=== PATIENT | male | born 1950 | race Caucasian/White ===

== ENCOUNTER → 2016-06-22 | Outpatient (CLI) | payer OTHER ==
[~2016-06-22] MED LIST: ACET-1175 PO; ATOR-22 PO; BISA10SU38 PR; CARB25TA14 PO; DIGO0.2576 PO; DIVA250T4 PO; DIVA500T5 PO; HYDR-5688 PO; LNX125 PO; LRT5 PO; MAGNSUS5 PO; MELA1TAB3 PO; MELA1TAB4 PO; METO50TA16 PO; MULT-506 PO; PRLSR20 PO; RISP0.253 PO; RISP0.258 PO; SENN-65 PO; SODIENE PR; TRIA0.02 TOP
== END ==
LOC: C.LABUPUNI 10:39
PROVIDERS: ATTEND Family Medicine
DX: I11.0 Hypertensive heart disease with heart failure (principal); F31.9 Bipolar disorder, unspecified

== ENCOUNTER 2016-07-20 22:19 | Observation (INO) | payer OTHER ==
[~2016-07-20] VITALS: Ht 172.7 cm; Wt 74.9 kg
[~2016-07-20 22:19] MED LIST changes: -HYDR-5688 PO; -LNX125 PO; -MELA1TAB4 PO; -RISP0.258 PO
[2016-07-20] MEDS ORDERED: LNX125 PO (23:09)
[2016-07-20] MEDS ORDERED: GLUCAGON FOR INJ 1 MG VIAL IV STA (23:09)
[2016-07-20] MEDS ORDERED: MELA1TAB4 PO (23:14)
[2016-07-20] MEDS ORDERED: RISP0.258 PO ×2 (23:18)
--- NOTE | 2016-07-20 23:19 | EMERGENCY ROOM VISIT NOTE ---
History Report prepared by Rocio: Suzan Costello Under the Supervision of: Dr. Omar Escobar M.D. First contact with patient: 23:03 Chief Complaint: FOOD BOLUS Stated Complaint: FOOD BOLUS/ FR [facility] Nursing Triage Summary: Pt arrived via BLS EMS form [facility]. Per EMS, staff told EMS that the pt began spitting and vomiting several hours ago. Hx of food bolus and staff concerned. In ambulance pt reported to staff that he has not eaten or drank anything in "days". Pt told EMS that he has never had this happen before. Upon arrival pt spitting and vomiting thick mucus into emesis bag. Hx of parkinsons with hand and arm tremors. History of Present Illness The patient is a 66 year old male who presents to the Emergency Room with complaints of a persistent food bolus that began a few hours ago. Per nursing staff, the patient is from [facility] and began spitting up mucous and vomiting continuously. The patient notes some slight abdominal pain, and states that he cannot swallow at all. Nursing staff reports that the patient has a history of food boluses and has had 8 endoscopies in the past. The patient notes that he hasn't eaten or drank anything in days, and he denies this ever happening in the past. Records indicate that the the patient has a history of Parkinson's disease, dementia, and esophageal dysmotility. Records report that the patient has had multiple food boluses throughout 2011. The history is limited secondary to the patient being nonverbal and history of dementia. Source of History: patient, nursing staff History Limited By: dementia Onset: a few hours ago Position: other (global) Quality: other (food bolus) Timing: other (persistent) Associated Symptoms: + abdominal pain Note: Associated Symptoms: cannot swallow Review of Systems Unable to obtain secondary to the patient being nonverbal and history of dementia. Past Medical & Surgical Medical Problems: (1) Alcohol Liver Damage Nos (2) Atrial Fibrillation (3) Chronic Kidney Disease, Unspecified (4) Dementia, Unspecified, Without Behavioral Disturbance (5) Diab Jennifer Wo Compl, Type Ii Or Unspec Type, Not Uncntrld (6) Foreign Body Esophagus (7) Hyperlipidemia Nec/Nos (8) Hypertension Nos Family History No pertinent family history stated. Social History Smoking Status: Former Smoker Marital Status: single Housing Status: other Occupation Status: disabled Current/Historical Medications Scheduled Atorvastatin (Lipitor), 20 MG PO DAILY Carbidopa/Levodopa (Sinemet 25MG/250MG), 1 TAB PO Q4 Digoxin (Digoxin), 0.125 MG PO DAILY Divalproex Sodium (Depakote Delay Rel), 500 MG PO BID Metoprolol Tartrate (Lopressor) (Lopressor), 50 MG PO DAILY Multivitamin (Multivitamin), 1 TAB PO DAILY Risperidone (Risperdal), 0.25 MG PO QAM Risperidone (Risperdal), 0.75 MG PO HS Sennosides-Docusate Sodium (Senokot S), 1 TAB PO BID Scheduled PRN Acetaminophen (Tylenol), 650 MG PO Q8 PRN for Pain Acetaminophen (Tylenol), 650 MG PO Q8 PRN for TEMP >101 Hydrocodone/Acetaminophen 5MG/325MG ([place] 5MG/325MG), 1 TAB PO QID PRN for Pain Melatonin (Melatonin), 1 MG PO HS PRN for Insomnia Allergies Coded Allergies: Naproxen (Unverified Allergy, Mild, 07/20/16) Uncoded Allergies: NONSTEROIDAL (Allergy, Mild, 07/23/09) Physical Exam Vital Signs Date Time Temp Pulse Resp B/P Pulse Ox O2 Delivery O2 Flow Rate FiO2 07/21/16 01:00 79 18 150/61 96 Room Air 07/21/16 00:44 87 07/21/16 00:23 86 20 150/61 95 Room Air 07/20/16 22:20 100 Room Air 07/20/16 22:20 37.2 93 20 152/94 100 Room Air Physical Exam GENERAL: Patient is chronically unwell appearing, mild distress, dementia/ Parkinson's noted. HEENT: Continuous spitting/retching of clear liquid. No acute trauma, normocephalic atraumatic, mucous membranes moist, no nasal congestion, no scleral icterus. NECK: No stridor, no adenopathy, no meningismus, trachea is midline. LUNGS: Crackles and decreased breath sounds in the left lower lobe. HEART: Regular rate and rhythm. No murmurs, rubs, gallops appreciated. ABDOMEN: Soft, nontender, bowel sounds positive, no masses appreciated, no peritonitis. BACK: No midline tenderness, no CVA tenderness EXTREMITIES: Mild edema bilateral lower legs. Normal motion all extremities, no cyanosis. NEUROLOGIC: Awake, answers yes and no periodically with a head nod. SKIN: No rash, no jaundice, no diaphoresis. Medical Decision & Procedures ER Provider Diagnostic Interpretation: 1 view chest: chronic lung disease, no focal infiltrate or effusion. KUB: nonspecific bowel gas pattern, stool in rectum. No clear evidence of bowel dilatation. Laboratory Results 07/20/16 23:10 Red Blood Count 3.91, Mean Corpuscular Volume 93.9, Mean Corpuscular Hemoglobin 32.2, Mean Corpuscular Hemoglobin Concent 34.3, Mean Platelet Volume 9.5, Neutrophils (%) (Auto) 65.1, Lymphocytes (%) (Auto) 23.1, Monocytes (%) (Auto) 11.0, Eosinophils (%) (Auto) 0.2, Basophils (%) (Auto) 0.4, Neutrophils # (Auto ) 5.34, Lymphocytes # (Auto) 1.90, Monocytes # (Auto) 0.90, Eosinophils # (Auto ) 0.02, Basophils # (Auto) 0.03 07/20/16 23:10 Test 07/20/16 23:10 White Blood Count 8.21 K/uL (4.8-10.8) Red Blood Count 3.91 M/uL (4.7-6.1) Hemoglobin 12.6 g/dL (14.0-18.0) Hematocrit 36.7 % (42-52) Mean Corpuscular Volume 93.9 fL (80-100) Mean Corpuscular Hemoglobin 32.2 pg (25-34) Mean Corpuscular Hemoglobin Concent 34.3 g/dl (32-36) Platelet Count 288 K/uL (130-400) Mean Platelet Volume 9.5 fL (7.4-10.4) Neutrophils (%) (Auto) 65.1 % Lymphocytes (%) (Auto) 23.1 % Monocytes (%) (Auto) 11.0 % Eosinophils (%) (Auto) 0.2 % Basophils (%) (Auto) 0.4 % Neutrophils # (Auto) 5.34 K/uL (1.4-6.5) Lymphocytes # (Auto) 1.90 K/uL (1.2-3.4) Monocytes # (Auto) 0.90 K/uL (0.11-0.59) Eosinophils # (Auto) 0.02 K/uL (0-0.5) Basophils # (Auto) 0.03 K/uL (0-0.2) RDW Standard Deviation 48.7 fL (36.4-46.3) RDW Coefficient of Variation 14.1 % (11.5-14.5) Immature Granulocyte % (Auto) 0.2 % Immature Granulocyte # (Auto) 0.02 K/uL (0.00-0.02) Anion Gap 11.0 mmol/L (3-11) Est Creatinine Clear Calc Drug Dose 100.4 ml/min Estimated GFR () 114.0 Estimated GFR (Non- 98.3 BUN/Creatinine Ratio 17.7 (10-20) Calcium Level 8.7 mg/dl (8.5-10.1) Total Bilirubin 0.4 mg/dl (0.2-1) Direct Bilirubin 0.1 mg/dl (0-0.2) Aspartate Amino Transf (AST/SGOT) 19 U/L (15-37) Alanine Aminotransferase (ALT/SGPT) 16 U/L (12-78) Alkaline Phosphatase 97 U/L (45-117) Troponin I < 0.015 ng/ml (0-0.045) Total Protein 8.0 gm/dl (6.4-8.2) Albumin 3.8 gm/dl (3.4-5.0) Lipase 116 U/L (73-393) Digoxin Level 0.4 ng/ml (0.8-2.0) Valproic Acid (Depakene) Level 53 mcg/ml (50-100) Laboratory results as reviewed by me. Medications Administered Medications (Trade) Dose Ordered Sig/Gagandeep Route Start Time Stop Time Status Last Admin Dose Admin Glucagon (Glucagon Inj) 1 mg NOW STAT IV 07/20/16 23:09 07/20/16 23:14 DC 07/20/16 23:43 1 MG ECG Indication: other (food bolus) Rate (beats per minute): 83 Rhythm: sinus rhythm Findings: 1st degree AV block, RBBB ED Course 2304: The patient was evaluated in room B4B. A complete history and physical exam was performed. 2308: Ordered Glucagon 1 mg IV. 0013: I discussed the patient's case with Dr. Medrano, Gastroenterology. He states that he is going to take the operating room for an endoscopy. He additionally asked that we consult the hospitalist to have the patient evaluated after the procedure and anesthesiology for sedation. 0025: The patient is in agreement with the treatment plan. 0031: I discussed the patients case with JOSE Mandujano. He is going to evaluate the patient for further treatment. 0113: The patient is in the OR. Medical Decision 66 yr old male with dementia, parkinson's and esophageal dysmotility with previous esophageal food impactions. Arrives from detention with assumption of food bolus given constant drooling and inability to swallow. He has poor left lung sounds which I suspect represents aspiration event though fortunately at this time CXR is clear. He is high risk and not a candidate for sedation in er. Dr Medrano of GI contacted and will take to OR. Patient discussed with medical team as well given he will need obs post OR along with possible aspiration. Given no clear infection at this time will hold on abx. He is maintaining airway as long as he is sitting up/forward thus will hold on emergent intubation in ED. Otherwise labs/ekg ok currently. Consults Time Called: 000 Consulting Physician: Dr. Medrano, Gastroenterology Returned Call: 0013 I discussed the patient's case with Dr. Medrano, Gastroenterology. He states that he is going to take the operating room for an endoscopy. He additionally asked that we consult the hospitalist to have the patient evaluated after the procedure and anesthesiology for sedation. Additional Consults: Time Called: 002 Consulted Physician: JOSE Mandujano Returned Call: 003 Additional Comments: I discussed the patients case with JOSE Mandujano. He is going to evaluate the patient for further treatment. Impression Primary Impression: Food impaction of esophagus Additional Impression: Aspiration pneumonitis Scribe Attestation The scribe's documentation has been prepared under my direction and personally reviewed by me in its entirety. I confirm that the note above accurately reflects all work, treatment, procedures, and medical decision making performed by me. Departure Information Dispostion Being Evaluated By Hospitalist Referrals Formerly [facility], [facility] (PCP) Problem Qualifiers Primary Impression: Food impaction of esophagus Encounter type: initial encounter Qualified Codes: T18.128A - Food in esophagus causing other injury, initial encounter
[2016-07-20] MEDS ORDERED: HYDR-5688 PO (23:22)
[2016-07-20 23:49] LABS: BASO % 0.4 %; BASO ABS # 0.03 K/uL (0-0.2); COMPLETE YES; EOS % 0.2 %; HEMATOCRIT 36.7 % (42-52); IG% 0.2 %; LYMPH % 23.1 %; MEAN CELL VOLUME 93.9 fL (80-100); MEAN CORPUSCULAR HEMOGLOBIN 32.2 pg (25-34); MEAN CORPUSCULAR HGB CONC 34.3 g/dl (32-36); MEAN PLATELET VOLUME 9.5 fL (7.4-10.4); NEUT % 65.1 %; PLATELET COUNT 288 K/uL (130-400); RED BLOOD COUNT 3.91 M/uL (4.7-6.1); WHITE BLOOD COUNT 8.21 K/uL (4.8-10.8)
[2016-07-21 00:08] LABS: ALT/SGPT 16 U/L (12-78); BLOOD UREA NITROGEN 12 mg/dl (7-18); BUN/CREATININE RATIO 17.7 (10-20); CALCIUM 8.7 mg/dl (8.5-10.1); CARBON DIOXIDE 28 mmol/L (21-32); CHLORIDE 99 mmol/L (98-107); GLUCOSE 83 mg/dl (70-99); POTASSIUM 3.7 mmol/L (3.5-5.1); SODIUM 138 mmol/L (136-145)
[2016-07-21 00:13] LABS: ALKALINE PHOSPHATASE 97 U/L (45-117); AST/SGOT 19 U/L (15-37)
[2016-07-21] MEDS ORDERED: LIDOCAINE HCL 2% 2 ML VIAL (20MG/ML) ONE (01:02)
[2016-07-21] MEDS ORDERED: PROPOFOL IV EMULSION 10 MG/ML 20 ML VIAL IV ONE (01:02)
[2016-07-21] MEDS ORDERED: SUCCINYLCHOLINE 100MG/5ML SYR IV ONE (01:02)
[2016-07-21] MEDS ORDERED: MIDAZOLAM HCL 1 MG/ML 2ML VIAL ONE (01:03)
[2016-07-21] MEDS ORDERED: FENTANYL CITRATE INJ 50 MCG/1 ML 2 ML VIAL ONE (01:04)
[2016-07-21] MEDS ORDERED: EpHEDrine SULFATE INJ 50 MG/ML AMP IV PRN (01:15)
[2016-07-21] MEDS ORDERED: ATROPINE SULFATE 0.1 MG/ML 5ML SYR IV PRN (01:15)
--- NOTE | 2016-07-21 01:24 | History and Physical ---
History & Physical Date Jul 21, 2016. Chief Complaint Food bolus History of Present Illness The patient is a 66 year old male with complaints of Past Medical/Surgical History Medical Problems: (1) Alcohol Liver Damage Nos (2) Atrial Fibrillation (3) Chronic Kidney Disease, Unspecified (4) Dementia, Unspecified, Without Behavioral Disturbance (5) Diab Jennifer Wo Compl, Type Ii Or Unspec Type, Not Uncntrld (6) Foreign Body Esophagus (7) Hyperlipidemia Nec/Nos (8) Hypertension Nos Additional History Other: Parkinson's disease Allergies Coded Allergies: Naproxen (Unverified Allergy, Mild, 07/20/16) Uncoded Allergies: NONSTEROIDAL (Allergy, Mild, 07/23/09) Home Medications Scheduled Atorvastatin (Lipitor), 20 MG PO DAILY Carbidopa/Levodopa (Sinemet 25MG/250MG), 1 TAB PO Q4 Digoxin (Digoxin), 0.125 MG PO DAILY Divalproex Sodium (Depakote Delay Rel), 500 MG PO BID Metoprolol Tartrate (Lopressor) (Lopressor), 50 MG PO DAILY Multivitamin (Multivitamin), 1 TAB PO DAILY Risperidone (Risperdal), 0.25 MG PO QAM Risperidone (Risperdal), 0.75 MG PO HS Sennosides-Docusate Sodium (Senokot S), 1 TAB PO BID Scheduled PRN Acetaminophen (Tylenol), 650 MG PO Q8 PRN for Pain Acetaminophen (Tylenol), 650 MG PO Q8 PRN for TEMP >101 Hydrocodone/Acetaminophen 5MG/325MG ([place] 5MG/325MG), 1 TAB PO QID PRN for Pain Melatonin (Melatonin), 1 MG PO HS PRN for Insomnia Physical Examination Skin: warm/dry Eyes: normal inspection ENT: + pertinent finding (edentulous) Head: normocephalic Neck: trachea midline Respiratory/Chest: lungs clear Cardiovascular: regular rate, rhythm Abdomen / GI: + pertinent finding (umbilical hernia) Back: normal inspection Extremities: normal inspection Neurologic/Psych: + pertinent finding (pill rolling tremor) Diagnosis Impacted food bolus ASA Classification: ASA Class III Plan of Treatment For EGD with FB removal in OR intubated
--- NOTE | 2016-07-21 01:30 | Endo History and Physical ---
History & Physical Date of Service: Jul 21, 2016. Chief Complaint: food bolus Referring Physician: Dr Medrano History of Present Illness For EGD with FB removal Past Surgical History Hx Post-Op Nausea and Vomiting: No Social History Smoking Status: Former Smoker Allergies Coded Allergies: Naproxen (Unverified Allergy, Mild, 07/20/16) Uncoded Allergies: NONSTEROIDAL (Allergy, Mild, 07/23/09) Current Medications Reported Home Medications Medications Dose Route/Sig Max Daily Dose Days Date Category Dose Instructions [place] 5MG/325MG (Acetaminophen/Hydrocodone Bitart) Tab 1 Tab PO QID PRN 07/20/16 Reported PRN PAIN Risperdal (Risperidone) 0.25 Mg Tab 0.75 Mg PO HS 07/20/16 Reported Risperdal (Risperidone) 0.25 Mg Tab 0.25 Mg PO QAM 07/20/16 Reported Melatonin 1 Mg Tab 1 Mg PO HS PRN 07/20/16 Reported Digoxin 0.125 Mg Tab 0.125 Mg PO DAILY 07/20/16 Reported hold for pulse <60 Depakote Delay Rel (Divalproex Sodium) 500 Mg Tab 500 Mg PO BID 09/06/14 Reported Lipitor (Atorvastatin Calcium) 20 Mg Tab 20 Mg PO DAILY 09/06/14 Reported Tylenol (Acetaminophen) 325 Mg Tab 650 Mg PO Q8 PRN 03/07/12 Reported DO NOT EXCEED 3GM/24HR Senokot S (Sennosides-Docusate Sodium) 1 Tab Tab 1 Tab PO BID 11/30/11 Reported Tylenol (Acetaminophen) 325 Mg Tab 650 Mg PO Q8 PRN 10/21/11 Reported DO NOT EXCEED 3GM/24HR Sinemet 25MG/250MG (Carbidopa/Levodopa) Tab 1 Tab PO Q4 10/21/11 Reported Lopressor (Metoprolol Tartrate) 50 Mg Tab 50 Mg PO DAILY 12/09/09 Reported Multivitamin (Multivitamins) Tab 1 Tab PO DAILY 12/09/09 Reported Vital Signs Weight (Kilograms): 77.200 Height (Feet): 5 Height (Inches): 8.00 Date Time Temp Pulse Resp B/P Pulse Ox O2 Delivery O2 Flow Rate FiO2 07/21/16 01:00 79 18 150/61 96 Room Air 07/21/16 00:44 87 07/21/16 00:23 86 20 150/61 95 Room Air 07/20/16 22:20 100 Room Air 07/20/16 22:20 37.2 93 20 152/94 100 Room Air Physical Exam General Appearance: WD/WN Respiratory/Chest: Respiratory effort: no dyspnea, good air movement Auscultation: breath sounds normal Cardiovascular: Heart Auscultation: RRR Abdomen: Bowel Sounds: pertinent finding (umbilical hernia) Assessment and Plan FB for EGD in OR
[2016-07-21] MEDS ORDERED: ROCURONIUM BROMIDE 10 MG/ML 5 ML VIAL ONE (01:39)
[2016-07-21] MEDS ORDERED: HYDROCODONE/ACETAMOPHEN 5/325MG TAB PO PRN (01:45)
[2016-07-21] MEDS ORDERED: ONDANSETRON INJ 2 MG/ML 2 ML VIAL IV PRN (01:45)
--- NOTE | 2016-07-21 02:08 | History and Physical ---
History & Physical Date & Time of Service: Jul 21, 2016 at 01:47 Chief Complaint: Food Bolus/ Fr Berna Primary Care Physician: Andres Coronel History of Present Illness Source: patient, hospital records, other 66 y/o M w/Hx Parkinson's, ETOH-dementia and esophageal dysmotility. He has a history of esophageal impaction in the past. The pt has a tendency to wander around the care facility where he resides and eat other peoples food which is not necessarily of the recommended consistency for his underlying disorder. He began coughing and vomiting 8 hours prior to arrival and was sent to the ER for evaluation. He was found to have an impacted food bolus and will undergo endoscopic removal. Additionally he may have aspirated per DE staff however there is no current evidence of related PNM. The pt would not or could not provide any additional information at the time of evaluation by the medical service. Past Medical/Surgical History 1) Parkinson's 2) ETOH-related dementia 3) Hard of hearing 4) Esophageal dysmotility with previous food impaction 5) HTN 6) DM - may be diet-controlled 7) Paroxysmal AF Family History Cannot obtain Social History Previous ETOH abuse - resides in a care facility due to dementia Smoking Status: Former Smoker Marital Status: single Housing status: jail Occupational Status: disabled Multi-Drug Resistant Organisms History of MDRO: No Allergies Coded Allergies: Naproxen (Unverified Allergy, Mild, 07/20/16) Uncoded Allergies: NONSTEROIDAL (Allergy, Mild, 07/23/09) Home Medications Scheduled Atorvastatin (Lipitor), 20 MG PO DAILY Carbidopa/Levodopa (Sinemet 25MG/250MG), 1 TAB PO Q4 Digoxin (Digoxin), 0.125 MG PO DAILY Divalproex Sodium (Depakote Delay Rel), 500 MG PO BID Metoprolol Tartrate (Lopressor) (Lopressor), 50 MG PO DAILY Multivitamin (Multivitamin), 1 TAB PO DAILY Risperidone (Risperdal), 0.25 MG PO QAM Risperidone (Risperdal), 0.75 MG PO HS Sennosides-Docusate Sodium (Senokot S), 1 TAB PO BID Scheduled PRN Acetaminophen (Tylenol), 650 MG PO Q8 PRN for Pain Acetaminophen (Tylenol), 650 MG PO Q8 PRN for TEMP >101 Hydrocodone/Acetaminophen 5MG/325MG ([place] 5MG/325MG), 1 TAB PO QID PRN for Pain Melatonin (Melatonin), 1 MG PO HS PRN for Insomnia Review of Systems Cannot obtain ROS - information per HPI obtained form care facility Constitutional: + sweats Physical Exam Vital Signs Date Time Temp Pulse Resp B/P Pulse Ox O2 Delivery O2 Flow Rate FiO2 07/21/16 01:00 79 18 150/61 96 Room Air 07/21/16 00:44 87 07/21/16 00:23 86 20 150/61 95 Room Air 07/20/16 22:20 100 Room Air 07/20/16 22:20 37.2 93 20 152/94 100 Room Air General Appearance: WD/WN, no apparent distress Head: normocephalic, atraumatic Eyes: normal inspection, PERRL, EOMI ENT: normal ENT inspection, pharynx normal Neck: supple, no JVD Respiratory/Chest: chest non-tender, lungs clear, normal breath sounds Cardiovascular: regular rate, rhythm, no edema, no gallop Abdomen/GI: normal bowel sounds, non tender, + distended Genitourinary - Male: normal male genitalia Extremities/Musculoskelatal: normal inspection, no calf tenderness Neurologic/Psych: network intelligence analyst II-XII nml as tested, no motor/sensory deficits, + pertinent finding (Dementia / disorientation is appparent - there are B/L and tremors) Diagnostics Laboratory Results Results Past 24 Hours Test 07/20/16 23:10 Range/Units White Blood Count 8.21 4.8-10.8 K/uL Red Blood Count 3.91 4.7-6.1 M/uL Hemoglobin 12.6 14.0-18.0 g/dL Hematocrit 36.7 42-52 % Mean Corpuscular Volume 93.9 80-100 fL Mean Corpuscular Hemoglobin 32.2 25-34 pg Mean Corpuscular Hemoglobin Concent 34.3 32-36 g/dl Platelet Count 288 130-400 K/uL Mean Platelet Volume 9.5 7.4-10.4 fL Neutrophils (%) (Auto) 65.1 % Lymphocytes (%) (Auto) 23.1 % Monocytes (%) (Auto) 11.0 % Eosinophils (%) (Auto) 0.2 % Basophils (%) (Auto) 0.4 % Neutrophils # (Auto) 5.34 1.4-6.5 K/uL Lymphocytes # (Auto) 1.90 1.2-3.4 K/uL Monocytes # (Auto) 0.90 0.11-0.59 K/uL Eosinophils # (Auto) 0.02 0-0.5 K/uL Basophils # (Auto) 0.03 0-0.2 K/uL RDW Standard Deviation 48.7 36.4-46.3 fL RDW Coefficient of Variation 14.1 11.5-14.5 % Immature Granulocyte % (Auto) 0.2 % Immature Granulocyte # (Auto) 0.02 0.00-0.02 K/uL Sodium Level 138 136-145 mmol/L Potassium Level 3.7 3.5-5.1 mmol/L Chloride Level 99 98-107 mmol/L Carbon Dioxide Level 28 21-32 mmol/L Anion Gap 11.0 3-11 mmol/L Blood Urea Nitrogen 12 7-18 mg/dl Creatinine 0.70 0.60-1.40 mg/dl Est Creatinine Clear Calc Drug Dose 100.4 ml/min Estimated GFR () 114.0 Estimated GFR (Non- 98.3 BUN/Creatinine Ratio 17.7 10-20 Random Glucose 83 70-99 mg/dl Calcium Level 8.7 8.5-10.1 mg/dl Total Bilirubin 0.4 0.2-1 mg/dl Direct Bilirubin 0.1 0-0.2 mg/dl Aspartate Amino Transf (AST/SGOT) 19 15-37 U/L Alanine Aminotransferase (ALT/SGPT) 16 12-78 U/L Alkaline Phosphatase 97 45-117 U/L Troponin I < 0.015 0-0.045 ng/ml Total Protein 8.0 6.4-8.2 gm/dl Albumin 3.8 3.4-5.0 gm/dl Lipase 116 73-393 U/L Digoxin Level 0.4 0.8-2.0 ng/ml Valproic Acid (Depakene) Level 53 50-100 mcg/ml Microbiology Results 07/20/16 Blood Culture, Received Pending 07/20/16 Blood Culture, Received Pending EKG Sinus - first degree AV Impression Assessment and Plan 66 y/o M w/Hx Parkinson's, ETOH-dementia and esophageal dysmotility. He has a history of esophageal impaction in the past. The pt has a tendency to wander around the care facility where he resides and eat other peoples food which is not necessarily of the recommended consistency for his underlying disorder. He began coughing and vomiting 8 hours prior to arrival and was sent to the ER for evaluation. He was found to have an impacted food bolus and will undergo endoscopic removal. Additionally he may have aspirated per DE staff however there is no current evidence of related PNM. 1) Esophageal impaction with food bolus - pt will proceed from ER for endoscopic removal of a presumed food bolus. 2) Aspiration - no current evidence of PNM - no hypoxia - will monitor on telemetry post procedure 3) Parkinson's - cont Sinemet 4) AF, HTN - Cont Metoprolol - not currently anticoagulated 5) Dementia - cont supportive meds Total time for this admission including review of records, meds, labs - discussion with ER attending - 31 min Full code - SCDs Level of Care Telemetry Resuscitation Status FULL RESUSCITATION VTE Prophylaxis VTE Risk Assessment Done? Y/N: Yes Risk Level: Moderate Given or contraindicated: SCD's
--- NOTE | 2016-07-21 02:26 | Discharge Instructions ---
Endoscopy Patient Instructions Date / Procedure(s) Performed Jul 21, 2016. EGD Allergy Information Coded Allergies: Naproxen (Unverified Allergy, Mild, 07/20/16) Uncoded Allergies: NONSTEROIDAL (Allergy, Mild, 07/23/09) Discharge Date / Findings Jul 21, 2016. Foreign body removed, stricture dilated Medication Instructions Restart Stopped Medication(s): resume meds Current Inpatient Medications Medications (Trade) Dose Ordered Sig/Gagandeep Route Start Time Stop Time Status Last Admin Dose Admin Ephedrine Sulfate (EpHEDrine SULFATE INJ) 5 mg Q5M PRN IV 07/21/16 01:15 07/22/16 01:14 UNV Atropine Sulfate (Atropine Sulfate 0.1MG/Ml Inj) 0.5 mg Q1M PRN IV 07/21/16 01:15 07/22/16 01:14 UNV Ondansetron HCl 4 mg 4 mg Q6H PRN IV 07/21/16 01:45 08/20/16 01:44 UNV Potassium Chloride/Dextrose/ Sod Cl (D5nss + 20meq KCl) 1,000 ml @ 100 mls/hr Q10H IV 07/21/16 01:45 08/20/16 01:44 UNV Atorvastatin Calcium (Lipitor Tab) 20 mg DAILY PO 07/21/16 09:00 08/20/16 08:59 UNV Carbidopa/Levodopa (Sinemet 25/ 250MG Tab) 1 tab Q4 PO 07/21/16 04:00 08/20/16 03:59 UNV Digoxin (Lanoxin Tab) 0.125 mg DAILY PO 07/21/16 09:00 08/20/16 08:59 UNV Divalproex Sodium (Depakote Delay Rel Tab) 500 mg BID PO 07/21/16 09:00 08/20/16 08:59 UNV Acetaminophen/ Hydrocodone Bitart ([place] 5/325 Tab) 1 tab QID PRN PO 07/21/16 01:45 08/04/16 01:44 UNV Metoprolol Tartrate (Lopressor Tab) 50 mg DAILY PO 07/21/16 09:00 08/20/16 08:59 UNV Risperidone (Risperdal Tab) 0.25 mg QAM PO 07/21/16 09:00 08/20/16 08:59 UNV Risperidone (Risperdal Tab) 0.75 mg HS PO 07/21/16 21:00 08/20/16 20:59 UNV Senna/Docusate Sodium (Senokot S Tab) 1 tab BID PO 07/21/16 09:00 08/20/16 08:59 UNV Provider Instructions Activity Restrictions - No exercising or heavy lifting for 24 hours. - Do not drink alcohol the day of the procedure. - Do not drive a car or operate machinery until the day after the procedure. - Do not make any important decisions or sign important papers in 24 hours after the procedure. Following Day: - Return to full activity which may include returning to work/school. Diet Start your diet with liquids and light foods (jello, soup, juice, toast). Then eat your usual diet if not nauseated. Treatment For Common After Affects For mild abdominal pain, bloating, or excessive gas: - Rest - Eat lightly - Lie on right side Follow-Up Information Follow-up with as scheduled Anesthesia Information What You Should Know You have had a procedure that required some medicine to reduce anxiety and discomfort. This treatment is called moderate sedation. After receiving the treatment, you may be sleepy, but you will be able to breathe on your own. The effects of the treatment may last for several hours. Follow these instructions along with Activity/Diet recommendations noted above: * Do NOT do anything where dizziness or clumsiness would be dangerous. * Rest quietly at home today, then you can be up and about tomorrow. * Have a responsible person stay with you the rest of today. * You may have had an I.V. today. If so, you may take the dressing off later today. Recommendations Call your doctor if: * Trouble breathing * Continuous vomiting for more than 24 hours * Temperature above 101 degrees * Severe abdominal pain or bloating * Pain not relieved by pain medicine ordered * There is increased drainage or redness from any incision * A large amount of rectal bleeding greater than 2-3 tablespoons. (If you had a polyp/s removed or have hemorrhoids, a small amount of blood - from the rectum is to be expected.) * You have any unanswered questions or concerns. IN THE EVENT OF A SERIOUS EMERGENCY, GO TO THE NEAREST EMERGENCY ROOM Your discharge instructions were prepared by provider Waqas Medrano. Patient Instructions Signature Page Godfrey Arriaga Patient (or Guardian) Signature/Date: I have read and understand the instructions given to me by my caregivers. Caregiver/RN/Doctor Signature/Date: The above-named patient and/or guardian has received patient instructions on this date. + Original Patient Signature Page (only) stays with chart. Please make copy for patient.
--- NOTE | 2016-07-21 02:41 | GI REPORT ---
Procedure Date: 07/21/2016 1:29 AM Procedure: Upper GI endoscopy Indications: Foreign body in the esophagus Medicines: General Anesthesia Complications: No immediate complications. Estimated Blood Loss: Estimated blood loss was minimal. Procedure: Pre-Anesthesia Assessment: - Prior to the procedure, a History and Physical was performed, and patient medications, allergies and sensitivities were reviewed. The patient's tolerance of previous anesthesia was reviewed. - The risks and benefits of the procedure and the sedation options and risks were discussed with the patient. All questions were answered and informed consent was obtained. After obtaining informed consent, the endoscope was passed under direct vision. Throughout the procedure, the patient's blood pressure, pulse, and oxygen saturations were monitored continuously. The scope was introduced through the mouth, and advanced to the body of the stomach. The upper GI endoscopy was somewhat difficult due to stricture. The patient tolerated the procedure well. Findings: Food was found in the middle third of the esophagus. Removal of food was accomplished. One moderate benign-appearing, intrinsic stenosis was found. And was traversed. A TTS dilator was passed through the scope. Dilation with a 15-16.5-18 mm balloon (to a maximum balloon size of 18 mm) dilator was performed. The dilation site was examined following endoscope reinsertion and showed moderate improvement in luminal narrowing. Estimated blood loss was minimal. The gastric body was normal. Estimated blood loss was minimal. Impression: - Food in the middle third of the esophagus. Removal was successful. - Benign-appearing esophageal stenosis. Dilated. - Normal gastric body. Recommendation: - Return patient to hospital [facility] for observation. - Continue present medications. Waqas Medrano M.D. Waqas Medrano MD 07/21/2016 2:41:04 AM This report has been signed electronically. Note Initiated On: 07/21/2016 1:29 AM
--- NOTE | 2016-07-21 02:43 | Anesthesiology Progress Note ---
Anesthesia Post Op Note Date & Time Jul 21, 2016 at 02:42 Vital Signs Pain Intensity: 0 Vital Signs Past 12 Hours Date Time Temp Pulse Resp B/P Pulse Ox O2 Delivery O2 Flow Rate FiO2 07/21/16 01:00 79 18 150/61 96 Room Air 07/21/16 00:44 87 07/21/16 00:23 86 20 150/61 95 Room Air 07/20/16 22:20 100 Room Air 07/20/16 22:20 37.2 93 20 152/94 100 Room Air Notes Mental Status: alert / awake / arousable, participated in evaluation Pt Amnestic to Procedure: Yes Nausea / Vomiting: adequately controlled Pain: adequately controlled Airway Patency, RR, SpO2: stable & adequate BP & HR: stable & adequate Hydration State: stable & adequate Anesthetic Complications: no major complications apparent
[2016-07-21] MEDS ORDERED: IV FLUIDS COMPLETED PRN (03:00)
[2016-07-21 03:13] VITALS: BP 116/63; PULSE 82; TEMP 36.8; O2SAT 96; Ht 172.7 cm; Wt 74.9 kg
[2016-07-21] MEDS ORDERED: D5NSS + 20MEQ KCL 1,000 ML IV SCH (03:45)
[2016-07-21 04:00] VITALS: BP 138/62; PULSE 86; O2SAT 95
[2016-07-21] MEDS: CARBIDOPA/LEVODOPA 25-250 1 EA TAB PO SCH ×4 (04:00→16:18)
--- NOTE | 2016-07-21 06:52 | DIAGNOSTIC IMAGING REPORT ---
CHEST ONE VIEW PORTABLE CLINICAL HISTORY: Vomiting. Possible impacted food bolus. COMPARISON STUDY: 09/04/2014 FINDINGS: The heart is at the upper limits of normal in size. There is no failure. There is deformity of the left posterior eighth rib which appears old. There is mild interstitial thickening. There is no overt failure. There are no pleural effusions. There is no pneumomediastinum. IMPRESSION: No active disease in the chest. Electronically signed by: Yrn Dixon M.D. 07/21/2016 6:50 AM Dictated Date/Time: 07/21/2016 6:48 AM
--- NOTE | 2016-07-21 06:56 | DIAGNOSTIC IMAGING REPORT ---
KUB CLINICAL HISTORY: vomiting COMPARISON STUDY: 05/11/2009 FINDINGS: There is no pathologic bowel dilatation. Calcifications project over each renal shadow, likely are vascular although small calculi could appear similar. 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 IMPRESSION: No evidence of pathologic bowel dilatation Electronically signed by: Yrn Dixon M.D. 07/21/2016 6:55 AM Dictated Date/Time: 07/21/2016 6:54 AM
[2016-07-21 08:00] VITALS: BP 136/66; PULSE 90; TEMP 37; O2SAT 94; O2SAT 95
[2016-07-21] MEDS ORDERED: METOPROLOL TARTRATE 50 MG TAB PO SCH (09:00)
[2016-07-21] MEDS ORDERED: DIVALPROEX SODIUM 500 MG DELAY RELEASE TAB PO SCH (09:00)
[2016-07-21] MEDS ORDERED: DOCUSATE SODIUM/SENNA 50/8.6MG TAB PO SCH (09:00)
[2016-07-21] MEDS ORDERED: RISPERIDONE 0.5 MG TAB PO SCH ×2 (09:00→21:00)
[2016-07-21] MEDS ORDERED: ATORVASTATIN 20 MG TAB PO SCH (09:00)
[2016-07-21 12:00] VITALS: BP 139/62; PULSE 83; TEMP 37; O2SAT 94; O2SAT 96
--- NOTE | 2016-07-21 12:52 | Discharge Summary ---
Discharge Summary Admission Date: Jul 21, 2016 at 01:40 Discharge Date: Jul 21, 2016 Discharge Disposition: [facility] facility Principal Diagnosis: Impacted food bolus within esophagus Problems/Secondary Diagnoses: 1. Esophageal stricture s/p dilation 2. Dementia 3. Parkinson disease 4. Paroxysmal atrial fibrillation 5. Hx of alcohol abuse Consultations: Dr. Waqas Medrano - GI Medication Reconciliation Continued Medications: Acetaminophen (Tylenol) 325 Mg Tab 650 MG PO Q8 PRN for Pain DO NOT EXCEED 3GM/24HR Acetaminophen (Tylenol) 325 Mg Tab 650 MG PO Q8 PRN for TEMP >101 DO NOT EXCEED 3GM/24HR Atorvastatin (Lipitor) 20 Mg Tab 20 MG PO DAILY Carbidopa/Levodopa (Sinemet 25MG/250MG) Tab 1 TAB PO Q4, 0 Refills Digoxin (Digoxin) 0.125 Mg Tab 0.125 MG PO DAILY hold for pulse <60 Divalproex Sodium (Depakote Delay Rel) 500 Mg Tab 500 MG PO BID Hydrocodone/Acetaminophen 5MG/325MG ([place] 5MG/325MG) Tab 1 TAB PO QID PRN for Pain PRN PAIN Melatonin (Melatonin) 1 Mg Tab 1 MG PO HS PRN for Insomnia Metoprolol Tartrate (Lopressor) (Lopressor) 50 Mg Tab 50 MG PO DAILY, 0 Refills Multivitamin (Multivitamin) Tab 1 TAB PO DAILY, 0 Refills Risperidone (Risperdal) 0.25 Mg Tab 0.25 MG PO QAM Risperidone (Risperdal) 0.25 Mg Tab 0.75 MG PO HS Sennosides-Docusate Sodium (Senokot S) 1 Tab Tab 1 TAB PO BID, TAB Discharge Exam Physical Exam: General Appearance: no apparent distress Eyes: sclerae normal Neck: no JVD Respiratory/Chest: lungs clear, no respiratory distress, no accessory muscle use Cardiovascular: regular rate, rhythm, no murmur Abdomen / GI: normal bowel sounds, non tender, soft Extremities: no pedal edema Neurologic/Psychiatric: alert, + pertinent finding (resting tremor, does not follow commands and is essentially non-verbal) Skin: normal color, warm/dry Hospital Course Mr. Arriaga is a 66-year-old male with a history of dementia related to alcohol abuse, Parkinson disease, and multiple previous impacted food boluses in his esophagus requiring EGD. He presented to the ER from his SNF after staff noted him to be vomiting and coughing throughout the day. In the ER, he was noted to again have a food bolus impacted within the esophagus. He was taken to the OR for EGD with Dr. Medrano with removal of a bolus of food within the mid esophagus. After clearing this, he was noted to have a stricture in this area that was then dilated. He tolerated the procedure well. In the ER, there was some initial concern that he may have aspirated because of reports of him coughing from the SNF. His initial CXR was clear and he was satting 100% on room air. He was in no respiratory distress. The decision was made to monitor him in the hospital after his EGD. Overnight, his respiratory status remained stable. This morning, he is unable to provide any history of complaint but appears comfortable without any respiratory distress. He was monitored throughout the morning and has no evidence of any acute respiratory process at this time. He is being discharged back to his SNF in stable condition. Total Time Spent: Less than 30 minutes This includes examination of the patient, discharge planning, medication reconciliation, and communication with other providers. Discharge Instructions Please refer to the electronic Patient Visit Report (Discharge Instructions) for additional information. Follow-Up Follow up with provider at SNF within one week. Additional Copies To [facility]
[2016-07-21 14:17] VITALS: BP 139/62; PULSE 83; TEMP 37; O2SAT 96
[2016-07-21] MEDS ORDERED: DIGOXIN 0.125 MG TAB PO SCH (16:00)
== END 2016-07-21 17:40 | disposition home or self-care (01) ==
LOC: EDBD 22:19 → C.EDB 22:23 → C.MSICU 07-21 01:40
PROVIDERS: ADMIT Internal Medicine; ATTEND Hospitalist
DX: T18.128A Food in esophagus causing other injury, initial encounter (principal); X58.XXXA Exposure to other specified factors, initial encounter; G20 Parkinson's disease; F03.90 Unspecified dementia, unspecified severity, without behavioral disturbance, psychotic disturbance, mood disturbance, and anxiety; K22.4 Dyskinesia of esophagus; N18.9 Chronic kidney disease, unspecified; E11.9 Type 2 diabetes mellitus without complications; E78.5 Hyperlipidemia, unspecified; I10 Essential (primary) hypertension; I44.0 Atrioventricular block, first degree; H91.90 Unspecified hearing loss, unspecified ear; I48.0 Paroxysmal atrial fibrillation; I45.10 Unspecified right bundle-branch block; F10.10 Alcohol abuse, uncomplicated; Z87.891 Personal history of nicotine dependence

== ENCOUNTER → 2016-07-24 | Outpatient (CLI) | payer OTHER ==
[~2016-07-24] MED LIST changes: -BISA10SU38 PR; -DIGO0.2576 PO; -DIVA250T4 PO; +HYDR-5688 PO; +LNX125 PO; -LRT5 PO; -MAGNSUS5 PO; -MELA1TAB3 PO; +MELA1TAB4 PO; -PRLSR20 PO; -RISP0.253 PO; +RISP0.258 PO; -SODIENE PR; -TRIA0.02 TOP
== END ==
LOC: C.LABUPUNI 08:20
PROVIDERS: ATTEND Family Medicine
DX: I50.9 Heart failure, unspecified (principal); F06.8 Other specified mental disorders due to known physiological condition

== ENCOUNTER → 2016-08-16 | Outpatient (CLI) | payer OTHER ==
[2016-08-16 10:04] LABS: BASO % 0.3 %; BASO ABS # 0.02 K/uL (0-0.2); COMPLETE YES; EOS % 0.6 %; HEMATOCRIT 34.8 % (42-52); IG% 0.3 %; LYMPH % 42.8 %; LYMPH ABS # 2.91 K/uL (1.2-3.4); MEAN CELL VOLUME 91.6 fL (80-100); MEAN CORPUSCULAR HEMOGLOBIN 30.8 pg (25-34); MEAN CORPUSCULAR HGB CONC 33.6 g/dl (32-36); MEAN PLATELET VOLUME 9.4 fL (7.4-10.4); MONO % 8.5 %; NEUT % 47.5 %; PLATELET COUNT 259 K/uL (130-400)
[2016-08-16 10:12] LABS: ALT/SGPT 14 U/L (12-78); BLOOD UREA NITROGEN 9 mg/dl (7-18); BUN/CREATININE RATIO 16.9 (10-20); CALCIUM 8.8 mg/dl (8.5-10.1); CARBON DIOXIDE 27 mmol/L (21-32); CHLORIDE 99 mmol/L (98-107); CREATININE 0.52 mg/dl (0.60-1.40); GLUCOSE 81 mg/dl (70-99); POTASSIUM 3.5 mmol/L (3.5-5.1); SODIUM 137 mmol/L (136-145)
[2016-08-16 10:15] LABS: ALB/GLOB RATIO 0.9 (0.9-2); ALKALINE PHOSPHATASE 79 U/L (45-117); AST/SGOT 18 U/L (15-37)
== END ==
LOC: C.LABUPUNI 09:43
PROVIDERS: ATTEND Family Medicine
DX: F06.8 Other specified mental disorders due to known physiological condition (principal); K76.9 Liver disease, unspecified; G21.9 Secondary parkinsonism, unspecified

== ENCOUNTER → 2016-08-21 | Outpatient (CLI) | payer OTHER ==
--- NOTE | 2016-09-08 07:51 | CODING QUERY NO DIAGNOSIS ---
: 1950 TREATMENT RENDERED WITHOUT A DIAGNOSIS To promote full compliance with coding requirements relating to patient care, physician participation is requested in all cases of scientific artist uncertainty. Please assist us with providing a diagnosis/symptom for the test(s) below: A diagnosis/symptom was not documented on your Order. A valid diagnosis/symptom is required to bill all insurances. Please remember that we are unable to code a diagnosis of rule out, probable, possible, questionable, or suspected. Tests that require a diagnosis: DOS: 08/21/16 * Valproic Acid DIAGNOSIS: Provider Signature: Date: Thank you Betzy Seaman Health Information Management Once completed, please kindly fax back to [phone] For questions please call [phone]
== END ==
LOC: C.LABUPUNI 09:54
PROVIDERS: ATTEND Family Medicine
DX: Z00.00 Encounter for general adult medical examination without abnormal findings (principal); I50.9 Heart failure, unspecified

== ENCOUNTER → 2016-09-20 | Outpatient (CLI) | payer OTHER | LOC: C.LABUPUNI 09:22 | PROVIDERS: ATTEND Family Medicine | DX: I48.2 Chronic atrial fibrillation (principal); G40.909 Epilepsy, unspecified, not intractable, without status epilepticus ==

== ENCOUNTER → 2016-10-20 | Outpatient (CLI) | payer OTHER | LOC: C.LABUPUNI 09:26 | PROVIDERS: ATTEND Nurse Practitioner Family | DX: I11.0 Hypertensive heart disease with heart failure (principal); I50.9 Heart failure, unspecified ==

== ENCOUNTER → 2016-11-07 | Outpatient (CLI) | payer OTHER ==
[2016-11-07 10:48] LABS: MEAN CELL VOLUME 94.1 fL (80-100); MEAN CORPUSCULAR HEMOGLOBIN 30.5 pg (25-34); MEAN CORPUSCULAR HGB CONC 32.4 g/dl (32-36); MEAN PLATELET VOLUME 9.2 fL (7.4-10.4); PLATELET COUNT 268 K/uL (130-400); RED BLOOD COUNT 3.93 M/uL (4.7-6.1); WHITE BLOOD COUNT 6.37 K/uL (4.8-10.8)
[2016-11-07 11:12] LABS: ALT/SGPT 14 U/L (12-78); AST/SGOT 15 U/L (15-37); BLOOD UREA NITROGEN 10 mg/dl (7-18); BUN/CREATININE RATIO 15.8 (10-20); CALCIUM 8.5 mg/dl (8.5-10.1); CARBON DIOXIDE 30 mmol/L (21-32); CHLORIDE 103 mmol/L (98-107); CREATININE 0.61 mg/dl (0.60-1.40); GLUCOSE 81 mg/dl (70-99); POTASSIUM 3.7 mmol/L (3.5-5.1); SODIUM 140 mmol/L (136-145)
[2016-11-07 11:23] LABS: ALB/GLOB RATIO 0.9 (0.9-2); ALKALINE PHOSPHATASE 83 U/L (45-117)
--- NOTE | 2016-11-15 13:19 | CODING QUERY MEDICAL NECESSITY ---
CQSUPPORTING DIAGNOSIS NEEDED A supporting diagnosis is required for the test/procedure performed on this patient in order for us to be reimbursed by the patient's insurance. Please provide a supporting diagnosis for the following test/procedure listed below next to the test name along with your signature. *If there is no additional diagnosis for this patient that would support the following test/procedure please document that below next to the test/procedure. Test(s)/Procedure(s) that require a supporting diagnosis: DOS 11/07/16 VITAMIN D TEST Provider Signature: Date: Thank you Sharmaine Amezcua Health Information Management Once completed, please kindly fax back to [phone] For questions please call [phone]
== END | disposition home or self-care (01) ==
LOC: C.LABUPUNI 09:28
PROVIDERS: ATTEND Family Medicine
DX: I48.2 Chronic atrial fibrillation (principal); E46 Unspecified protein-calorie malnutrition; M19.90 Unspecified osteoarthritis, unspecified site

== ENCOUNTER → 2016-11-17 | Outpatient (CLI) | payer OTHER ==
[2016-11-17 12:04] LABS: BLOOD UREA NITROGEN 10 mg/dl (7-18); CREATININE 0.69 mg/dl (0.60-1.40); GLUCOSE 72 mg/dl (70-99)
[2016-11-17 12:05] LABS: ALT/SGPT 15 U/L (12-78); BUN/CREATININE RATIO 14.6 (10-20); CARBON DIOXIDE 31 mmol/L (21-32); CHLORIDE 95 mmol/L (98-107); POTASSIUM 4.1 mmol/L (3.5-5.1); SODIUM 134 mmol/L (136-145)
[2016-11-17 12:07] LABS: ALB/GLOB RATIO 0.9 (0.9-2); ALKALINE PHOSPHATASE 75 U/L (45-117); AST/SGOT 13 U/L (15-37)
[2016-11-17 12:11] LABS: CALCIUM 8.7 mg/dl (8.5-10.1)
== END ==
LOC: C.LABUPUNI 09:13
PROVIDERS: ATTEND Nurse Practitioner Family
DX: N18.9 Chronic kidney disease, unspecified (principal); K76.9 Liver disease, unspecified

== ENCOUNTER → 2016-11-20 | Outpatient (CLI) | payer OTHER | LOC: C.LABUPUNI 08:11 | PROVIDERS: ATTEND Nurse Practitioner Family | DX: G40.909 Epilepsy, unspecified, not intractable, without status epilepticus (principal) ==

== ENCOUNTER → 2016-12-18 | Outpatient (CLI) | payer OTHER | LOC: C.LABUPUNI 08:31 | PROVIDERS: ATTEND Nurse Practitioner Family | DX: G40.909 Epilepsy, unspecified, not intractable, without status epilepticus (principal); Z79.899 Other long term (current) drug therapy ==

== ENCOUNTER → 2017-01-05 | Outpatient (CLI) | payer OTHER | LOC: C.LABUPUNI 09:01 | PROVIDERS: ATTEND Nurse Practitioner Family | DX: I11.0 Hypertensive heart disease with heart failure (principal); I50.9 Heart failure, unspecified; E55.9 Vitamin D deficiency, unspecified ==

== ENCOUNTER → 2017-01-12 | Outpatient (CLI) | payer OTHER ==
[2017-01-12 09:58] LABS: CHOLESTEROL/HDL RATIO 2.2
== END ==
LOC: C.LABUPUNI 09:27
PROVIDERS: ATTEND Family Medicine
DX: E78.5 Hyperlipidemia, unspecified (principal)

== ENCOUNTER → 2017-01-15 | Outpatient (CLI) | payer OTHER ==
[2017-01-15 11:42] LABS: URINE APPEARANCE CLEAR (CLEAR); URINE BILIRUBIN NEG (NEG); URINE COLOR YELLOW; URINE NITRITE NEG (NEG); URINE PH 7.5 (4.5-7.5); URINE SPECIFIC GRAVITY 1.013 (1.000-1.030); UROBILINOGEN NEG (NEG)
[2017-01-15 11:50] LABS: REVIEW REQ? NO
[2017-01-15 11:51] LABS: MANUAL MICROSCOPIC REQUIRED? NO
== END ==
LOC: C.LABUPUNI 10:09
PROVIDERS: ATTEND Nurse Practitioner Family
DX: N18.9 Chronic kidney disease, unspecified (principal)

== ENCOUNTER → 2017-01-19 | Outpatient (CLI) | payer OTHER | LOC: C.LABSPEC 08:54 | PROVIDERS: ATTEND Nurse Practitioner Family | DX: I48.91 Unspecified atrial fibrillation (principal); F31.9 Bipolar disorder, unspecified ==

== ENCOUNTER → 2017-02-18 | Outpatient (CLI) | payer OTHER ==
[2017-02-17 08:03] LABS: ALT/SGPT 9 U/L (12-78); BLOOD UREA NITROGEN 12 mg/dl (7-18); BUN/CREATININE RATIO 20.2 (10-20); CALCIUM 8.8 mg/dl (8.5-10.1); CARBON DIOXIDE 30 mmol/L (21-32); CHLORIDE 101 mmol/L (98-107); CREATININE 0.59 mg/dl (0.60-1.40); GLUCOSE 74 mg/dl (70-99); POTASSIUM 4.1 mmol/L (3.5-5.1); SODIUM 137 mmol/L (136-145)
[2017-02-17 08:06] LABS: ALB/GLOB RATIO 0.8 (0.9-2); ALKALINE PHOSPHATASE 82 U/L (45-117); AST/SGOT 17 U/L (15-37)
== END | disposition home or self-care (01) ==
LOC: C.LABUPUNI 08:14
PROVIDERS: ATTEND Nurse Practitioner Family
DX: K76.9 Liver disease, unspecified (principal); N18.6 End stage renal disease

== ENCOUNTER → 2017-05-22 | Outpatient (CLI) | payer OTHER ==
[2017-05-22 09:06] LABS: ALT/SGPT 15 U/L (12-78); AST/SGOT 19 U/L (15-37); BLOOD UREA NITROGEN 13 mg/dl (7-18); BUN/CREATININE RATIO 22.6 (10-20); CALCIUM 8.4 mg/dl (8.5-10.1); CARBON DIOXIDE 29 mmol/L (21-32); CHLORIDE 96 mmol/L (98-107); CHOLESTEROL 85 mg/dl (0-200); CREATININE 0.56 mg/dl (0.60-1.40); GLUCOSE 87 mg/dl (70-99); POTASSIUM 3.8 mmol/L (3.5-5.1); SODIUM 131 mmol/L (136-145); TRIGLYCERIDES 76 mg/dl (0-150); VERY LOW DENSITY LIPOPROT CALC 15 mg/dl
[2017-05-22 09:09] LABS: ALB/GLOB RATIO 0.9 (0.9-2); ALKALINE PHOSPHATASE 87 U/L (45-117); CHOLESTEROL/HDL RATIO 1.8; HDL CHOLESTEROL 46 mg/dl; LDL CHOLESTEROL CALCULATED 24 mg/dl
== END ==
LOC: C.LABUPNIT 08:33
PROVIDERS: ATTEND Nurse Practitioner Family
DX: I50.9 Heart failure, unspecified (principal); E78.5 Hyperlipidemia, unspecified

== ENCOUNTER → 2017-07-24 | Outpatient (CLI) | payer OTHER ==
[2017-07-24 09:51] LABS: DIGOXIN 0.5 ng/ml (0.8-2.0)
== END ==
LOC: C.LABUPUNI 08:17
PROVIDERS: ATTEND Nurse Practitioner Family
DX: Z51.81 Encounter for therapeutic drug level monitoring (principal)

== ENCOUNTER → 2017-08-17 | Outpatient (CLI) | payer OTHER ==
[2017-08-17 08:45] LABS: BLOOD UREA NITROGEN 11 mg/dl (7-18); GLUCOSE 85 mg/dl (70-99)
[2017-08-17 08:46] LABS: ALBUMIN 3.4 gm/dl (3.4-5.0); ALT/SGPT 14 U/L (12-78); CALCIUM 8.6 mg/dl (8.5-10.1); CARBON DIOXIDE 30 mmol/L (21-32); POTASSIUM 4.2 mmol/L (3.5-5.1); SODIUM 135 mmol/L (136-145)
[2017-08-17 08:48] LABS: ALKALINE PHOSPHATASE 73 U/L (45-117); AST/SGOT 18 U/L (15-37); TOTAL PROTEIN 6.9 gm/dl (6.4-8.2)
== END ==
LOC: C.LABUPUNI 07:54
PROVIDERS: ATTEND Nurse Practitioner Family
DX: I11.0 Hypertensive heart disease with heart failure (principal); F10.10 Alcohol abuse, uncomplicated; I50.9 Heart failure, unspecified

== ENCOUNTER → 2017-10-22 | Outpatient (CLI) | payer OTHER ==
[2017-10-22 10:25] LABS: DIGOXIN 0.4 ng/ml (0.8-2.0)
== END ==
LOC: C.LABUPUNI 09:08
PROVIDERS: ATTEND Nurse Practitioner Family
DX: I48.91 Unspecified atrial fibrillation (principal); G40.909 Epilepsy, unspecified, not intractable, without status epilepticus

== ENCOUNTER → 2018-01-24 | Outpatient (CLI) | payer OTHER ==
[~2018-01-24] MED LIST changes: +DIVA-36 PO; -DIVA500T5 PO
[2018-01-24 08:26] LABS: ALBUMIN 3.1 gm/dl (3.4-5.0); ALKALINE PHOSPHATASE 95 U/L (45-117); ALT/SGPT 13 U/L (12-78); AST/SGOT 18 U/L (15-37); BLOOD UREA NITROGEN 14 mg/dl (7-18); CALCIUM 8.5 mg/dl (8.5-10.1); CARBON DIOXIDE 31 mmol/L (21-32); CREATININE 0.62 mg/dl (0.60-1.40); GLUCOSE 73 mg/dl (70-99); POTASSIUM 3.8 mmol/L (3.5-5.1); SODIUM 138 mmol/L (136-145); TOTAL PROTEIN 6.8 gm/dl (6.4-8.2)
[2018-01-24 08:36] LABS: DIGOXIN 0.6 ng/ml (0.8-2.0)
== END ==
LOC: C.LABUPUNI 07:53
PROVIDERS: ATTEND Nurse Practitioner Family
DX: I48.2 Chronic atrial fibrillation (principal); F33.9 Major depressive disorder, recurrent, unspecified; E78.5 Hyperlipidemia, unspecified; E55.9 Vitamin D deficiency, unspecified

== ENCOUNTER 2018-02-06 11:51 | Inpatient (IN) | payer OTHER ==
[~2018-02-06] VITALS: Ht 177.8 cm; Wt 74.5 kg
[2018-02-06] MEDS ORDERED: SODIUM CHLORIDE 0.9% 1000ML 1,000 ML IV STA (12:16)
--- NOTE | 2018-02-06 12:32 | EMERGENCY ROOM VISIT NOTE ---
History Report prepared by Rocio: Toan Rangel Under the Supervision of: Dr. Eyal Ceballos M.D. First contact with patient: 12:16 Chief Complaint: ALTERED MENTAL STATUS Stated Complaint: AMS Nursing Triage Summary: pt arrives via ALS from [facility]. per staff, pt w/ AMS this am. pt normally ambulates x1 w/ walker. hx of dementia and left hand deformety. per [facility] staff, pt only responds to painful stimuli. pt a/o x 0. pt w/ mumbled speach per baseline. pt respirations wnl. History of Present Illness The patient is a 67 year old male who presents to the Emergency Room with complaints of altered mental status. The patient was transported by EMS from [facility]. Per report, the patient has dementia at baseline. This morning he was unable to ambulate, when he normally is able to with a walker. They note patient also has mumbled speech at his baseline. They were concerned as patient was harder to arouse this morning, so they sent him in. Remaining HPI /ROS/PE limited and unobtainable due to patient mental status. The patient is on Depakote and Digoxin. \ Source of History: EMS, nursing staff History Limited By: AMS Onset: few hours Symptom Intensity: moderate Review of Systems Limited ROS due to patient mental status Past Medical & Surgical Medical Problems: (1) Alcohol Liver Damage Nos (2) Altered mental status (3) Atrial Fibrillation (4) Chronic Kidney Disease, Unspecified (5) Dementia, Unspecified, Without Behavioral Disturbance (6) Diab Jennifer Wo Compl, Type Ii Or Unspec Type, Not Uncntrld (7) Foreign Body Esophagus (8) Hyperlipidemia Nec/Nos (9) Hypertension Nos (10) Lung collapse Social History Smoking Status: Unknown if Ever Smoked Marital Status: single Housing Status: other Occupation Status: disabled Current/Historical Medications Scheduled Atorvastatin (Lipitor), 20 MG PO DAILY Carbidopa/Levodopa (Sinemet 25MG/250MG), 1 TAB PO Q4 Digoxin (Digoxin), 0.125 MG PO DAILY Divalproex Sodium (Depakote Delay Rel), 500 MG PO BID Metoprolol Tartrate (Lopressor) (Lopressor), 50 MG PO DAILY Risperidone (Risperdal), 0.25 MG PO QAM Risperidone (Risperdal), 0.75 MG PO HS Sennosides-Docusate Sodium (Senokot S), 1 TAB PO BID Scheduled PRN Acetaminophen (Tylenol), 650 MG PO Q8 PRN for Pain Acetaminophen (Tylenol), 650 MG PO Q8 PRN for TEMP >101 Hydrocodone/Acetaminophen 5MG/325MG ([place] 5MG/325MG), 1 TAB PO QID PRN for Pain Melatonin (Melatonin), 1 MG PO HS PRN for Insomnia Allergies Coded Allergies: Naproxen (Verified Allergy, Mild, 07/21/16) Physical Exam Vital Signs Date Time Temp Pulse Resp B/P (MAP) Pulse Ox O2 Delivery O2 Flow Rate FiO2 02/06/18 15:10 94 29 150/68 98 Room Air 02/06/18 14:51 91 19 95 02/06/18 14:41 99 18 141/69 94 Room Air 02/06/18 14:41 141/69 02/06/18 13:51 100 18 148/90 95 Room Air 02/06/18 13:51 100 17 95 02/06/18 13:21 93 16 96 02/06/18 12:51 98 17 94 02/06/18 12:25 94 Room Air 02/06/18 12:21 92 19 95 02/06/18 12:06 37.4 99 18 148/90 94 Room Air 02/06/18 12:05 95 02/06/18 11:54 148/90 Physical Exam GENERAL: Patient is sleeping when entering room. Arousable to verbal stimuli. No distress. Age appropriate appearing. HENT: Normocephalic, atraumatic. Oropharynx unremarkable. EYES: Pupils 3mm in size, and sluggish; Normal conjunctiva. Sclera non-icteric. NECK: Supple. No nuchal rigidity. FROM. No masses. RESPIRATORY: Clear to auscultation. No wheezes. No rales. Normal respiratory effort. CARDIAC: Borderline tachycardic heart rate. Normal rhythm. No murmurs. No rubs. Extremities warm and well perfused. Pulses equal. No JVD. GI: Reducible umbilical hernia present. Soft, non-distended. No tenderness to palpation. No rebound or guarding. RECTAL: Deferred. MUSCULOSKELETAL: Atraumatic. Chest examination reveals no tenderness. The back is symmetrical on inspection without obvious abnormality. There is no CVA tenderness to palpation. No joint edema. LOWER EXTREMITIES: Calves are equal size bilaterally and non-tender. No edema. No discoloration. NEURO: Tremor right upper extremity. Altered sensorium. Unable to assess sensory or motor deficits due to mental status. Speech is mumbled. SKIN: No rash or jaundice noted. Medical Decision & Procedures ER Provider Diagnostic Interpretation: Radiology results as stated below per my review and radiologist interpretation: (CHEST FOR PE) ANGIO WITH CT DOSE: 481.97 mGy.cm HISTORY: 67 years-old Male with . Presents with acutely altered mental status and shortness of breath. Reported right lower lobe collapse. TECHNIQUE: Multiple CTA images of the chest were obtained after the intravenous administration of 83 ml Optiray 320. Coronal and sagittal MIPS were obtained from the axial data set and were submitted for review. A dose lowering technique was utilized adhering to the principles of ALARA. COMPARISON: Chest radiograph of same day, CT chest 12/18/2011. FINDINGS: CTA: Mild multichamber cardiac enlargement. Coronary arterial calcifications are noted. Thoracic aorta is normal in both course and caliber without aneurysm or dissection. Moderate mixed plaque formation about the thoracic aorta. The imaged great vessels appear to be patent. The pulmonary arterial tree is opacified to level the subsegmental branches proximally. The segmental and subsegmental branches however are suboptimally evaluated secondary to respiratory motion. No focal filling defects identified to suggest pulmonary thromboembolic disease. CT CHEST: Homogeneous thyroid. Multiple nonenlarged lymph nodes about the prevascular space appear unchanged from comparison. Additionally, enlarged paratracheal lymph nodes measuring up to 11 mm in short axis are also noted which appear unchanged from comparison. Right hilar lymph nodes are seen measuring up to 10 mm. There is no pneumothorax. Right-sided bronchial wall thickening noted. Trace of bronchial secretions are noted with air-fluid level seen within the right mainstem bronchus and bronchus intermedius with opacified bronchi of the right lower lobe. Multifocal groundglass and consolidative opacities are seen throughout the right upper and lower lobes with collapse of the right middle lobe. Partial collapse of the right lower lobe. No definite obstructing endobronchial lesion identified. No acute process of the imaged upper abdomen. Bones appear intact. IMPRESSION: 1. No acute aortic pathology or evidence of pulmonary thromboembolic disease. 2. Tracheobronchial secretions with opacification of the right lower lobe bronchi and air fluid noted within the right mainstem bronchus and bronchus intermedius. There is resultant right middle lobe and partial right lower lobe collapse. No definite obstructing endobronchial mass lesion identified. Further evaluation with bronchoscopy recommended. 3. Multifocal consolidative and groundglass opacities throughout the right lung are suspicious for a combination of atelectasis with pneumonitis. 4. Prominent and enlarged mediastinal and hilar lymph nodes appear unchanged dating back to 12/18/2011. The above report was generated using voice recognition software. It may contain grammatical, syntax or spelling errors. CHEST ONE VIEW PORTABLE CLINICAL HISTORY: Weakness. COMPARISON STUDY: Chest radiograph July 20, 2016. FINDINGS: There is no pneumothorax. Extensive right lower lung volume loss is noted with elevation of the right hemidiaphragm and right basilar opacity. Mild interstitial thickening is likely chronic. Several old left rib fractures are noted as well as an acute to subacute minimally displaced lateral left ninth rib fracture. There is no pneumothorax. IMPRESSION: 1. Right lower lung volume loss and opacity favors right lower lobe collapse or combined right lower and middle lobe collapse. A contrast-enhanced CT of the chest might be considered to evaluate for central obstructing mass. 2. Acute to subacute appearing minimally displaced left ninth rib fracture. No pneumothorax. HEAD WITHOUT CONTRAST (CT) CLINICAL HISTORY: 67 years-old Male with EVALUATE WEAKNESS. Acute weakness with dementia TECHNIQUE: Multiple axial CT images of the head were obtained without contrast. A dose lowering technique was utilized adhering to the principles of ALARA. CT DOSE: 537.48 mGy.cm COMPARISON: CT head 05/03/2006. FINDINGS: No acute intracranial hemorrhage, midline shift, intracranial mass, hydrocephalus, territorial ischemia or abnormal extra-axial collection. Atrophy with chronic microvascular ischemic changes redemonstrated. Cerebral vascular calcifications are noted. The calvarium is intact. Mastoid air cells and middle ear cavities are clear. Moderate mucoperiosteal thickening of the ethmoid air cells and right maxillary sinus with mild mucosal thickening of the left sphenoid sinus. 6 mm linear calcification about the superior right orbit redemonstrated. Soft tissues are within normal limits. IMPRESSION: No acute intracranial abnormality. Laboratory Results 02/06/18 12:50 Red Blood Count 4.26, Mean Corpuscular Volume 96.0, Mean Corpuscular Hemoglobin 31.7, Mean Corpuscular Hemoglobin Concent 33.0, Mean Platelet Volume 9.7, Neutrophils (%) (Auto) 86.6, Lymphocytes (%) (Auto) 2.7, Monocytes (%) (Auto) 10.3, Eosinophils (%) (Auto) 0.0, Basophils (%) (Auto) 0.1, Neutrophils # (Auto ) 13.13, Lymphocytes # (Auto) 0.41, Monocytes # (Auto) 1.56, Eosinophils # (Auto ) 0.00, Basophils # (Auto) 0.01 02/06/18 12:50 Test 02/06/18 12:02 02/06/18 12:50 02/06/18 12:52 02/06/18 13:06 Urine Color YELLOW Urine Appearance CLEAR (CLEAR) Urine pH 7.5 (4.5-7.5) Urine Specific [place] 1.013 (1.000-1.030) Urine Protein NEG (NEG) Urine Glucose (UA) NEG (NEG) Urine Ketones 1+ (NEG) Urine Occult Blood NEG (NEG) Urine Nitrite NEG (NEG) Urine Bilirubin NEG (NEG) Urine Urobilinogen NEG (NEG) Urine Leukocyte Esterase NEG (NEG) White Blood Count 15.16 K/uL (4.8-10.8) Red Blood Count 4.26 M/uL (4.7-6.1) Hemoglobin 13.5 g/dL (14.0-18.0) Hematocrit 40.9 % (42-52) Mean Corpuscular Volume 96.0 fL (80-100) Mean Corpuscular Hemoglobin 31.7 pg (25-34) Mean Corpuscular Hemoglobin Concent 33.0 g/dl (32-36) Platelet Count 224 K/uL (130-400) Mean Platelet Volume 9.7 fL (7.4-10.4) Neutrophils (%) (Auto) 86.6 % Lymphocytes (%) (Auto) 2.7 % Monocytes (%) (Auto) 10.3 % Eosinophils (%) (Auto) 0.0 % Basophils (%) (Auto) 0.1 % Neutrophils # (Auto) 13.13 K/uL (1.4-6.5) Lymphocytes # (Auto) 0.41 K/uL (1.2-3.4) Monocytes # (Auto) 1.56 K/uL (0.11-0.59) Eosinophils # (Auto) 0.00 K/uL (0-0.5) Basophils # (Auto) 0.01 K/uL (0-0.2) RDW Standard Deviation 51.0 fL (36.4-46.3) RDW Coefficient of Variation 14.6 % (11.5-14.5) Immature Granulocyte % (Auto) 0.3 % Immature Granulocyte # (Auto) 0.05 K/uL (0.00-0.02) Prothrombin Time 11.0 SECONDS (9.0-12.0) Prothromb Time International Ratio 1.0 (0.9-1.1) Activated Partial Thromboplast Time 26.4 SECONDS (21.0-31.0) Partial Thromboplastin Ratio 1.0 Anion Gap 11.0 mmol/L (3-11) Est Creatinine Clear Calc Drug Dose 105.7 ml/min Estimated GFR () 113.2 Estimated GFR (Non- 97.7 BUN/Creatinine Ratio 22.0 (10-20) Calcium Level 8.8 mg/dl (8.5-10.1) Magnesium Level 1.9 mg/dl (1.8-2.4) Total Bilirubin 0.7 mg/dl (0.2-1) Direct Bilirubin 0.2 mg/dl (0-0.2) Aspartate Amino Transf (AST/SGOT) 19 U/L (15-37) Alanine Aminotransferase (ALT/SGPT) 35 U/L (12-78) Alkaline Phosphatase 95 U/L (45-117) Troponin I < 0.015 ng/ml (0-0.045) Total Protein 8.0 gm/dl (6.4-8.2) Albumin 3.6 gm/dl (3.4-5.0) Lipase 124 U/L (73-393) Thyroid Stimulating Hormone (TSH) 1.580 uIu/ml (0.300-4.500) Digoxin Level 0.7 ng/ml (0.8-2.0) Valproic Acid (Depakene) Level 88 mcg/ml (50-100) Bedside Lactic Acid Venous 2.92 mmol/L (0.90-1.70) Venous Blood pH 7.41 (7.36-7.41) Venous Blood Partial Pressure CO2 47 mmHg (38.0-50.0) Venous Blood Partial Pressure O2 27 mmHg Venous Blood HCO3 29 mmol/L Venous Blood Oxygen Saturation < 60.0 % Venous Blood Base Excess 3.3 mEq/L Ammonia 12.9 umol/L (11-32) Medications Administered Medications (Trade) Dose Ordered Sig/Gagandeep Route Start Time Stop Time Status Last Admin Dose Admin Sodium Chloride 1,000 ml @ 125 mls/hr Q8H STAT IV 02/06/18 12:16 02/06/18 20:15 DC 02/06/18 12:16 125 MLS/HR Levofloxacin (Levaquin / D5W) 750 mg NOW STAT IV 02/06/18 13:54 02/06/18 13:57 DC 02/06/18 13:54 750 MG Piperacillin Sod/ Tazobactam Sod (Zosyn Iv) 4.5 gm NOW STAT IV 02/06/18 13:54 02/06/18 13:57 DC 02/06/18 13:54 4.5 GM Vancomycin HCl 1500 mg/Sodium Chloride 530 ml @ 200 mls/hr ONE STAT IV 02/06/18 13:54 02/06/18 16:32 DC 02/06/18 15:09 200 MLS/HR Laboratory results reviewed by me ECG Per My Interpretation Indication: altered mental status Rate (beats per minute): 102 Findings: RBBB, other (no PACs or PVCs, no ST Elevations or Depressions) ED Course Rechecks: 1319: Patient is resting comfortably. 1400: Patient still resting comfortably. Will call [facility] Hospitalist for admission. Medical Decision Prior records/ancillary studies reviewed and summarized above. Nursing notes reviewed and agree them. The patient's history was concerning for altered mental status. Differential diagnosis: Etiologies such as infection, hypoglycemia, electrolyte abnormalities, cardiac sources, intracerebral event, toxicologic, neurologic, as well as others were entertained. Physical examination: As above. ER treatment provided: IV Lock Normal saline hydration IV Zosyn IV Levaquin IV vancomycin On reassessment the patient was stable per Diagnostics interpretation by me: ECG: No acute ischemia The labs revealed an unremarkable CBC and chemistry panel except for a leukocytosis. VBG unremarkable. Lactate elevated. Urinalysis negative. The patient had blood and urine cultures pending. Imaging studies: Chest x-ray and CT scan as above The patient's findings are very concerning for a right-sided pneumonia. He was covered for healthcare acquired infection as well as aspiration. Consultation: A consultation was placed with the hospitalist. The case was discussed and diagnostics were reviewed. The patient was evaluated in the ER for further treatment. Medication Reconcilliation Current Medication List: was personally reviewed by me Blood Pressure Screening Patient's blood pressure: Elevated blood pressure (referred to hospitalist for this) Consults Time Called: 1400 Consulting Physician: Dr. April Goss Returned Call: 1402 Agrees to admit the patient Impression Primary Impression: Altered mental status Additional Impression: Pneumonia Scribe Attestation The scribe's documentation has been prepared under my direction and personally reviewed by me in its entirety. I confirm that the note above accurately reflects all work, treatment, procedures, and medical decision making performed by me. Departure Information Dispostion Being Evaluated By Hospitalist Referrals Charles Stroud M.D. (PCP) Forms HOME CARE DOCUMENTATION FORM, IMPORTANT VISIT INFORMATION Patient Instructions My [facility] Problem Qualifiers
--- NOTE | 2018-02-06 13:00 | DIAGNOSTIC IMAGING REPORT ---
CHEST ONE VIEW PORTABLE CLINICAL HISTORY: Weakness. COMPARISON STUDY: Chest radiograph July 20, 2016. FINDINGS: There is no pneumothorax. Extensive right lower lung volume loss is noted with elevation of the right hemidiaphragm and right basilar opacity. Mild interstitial thickening is likely chronic. Several old left rib fractures are noted as well as an acute to subacute minimally displaced lateral left ninth rib fracture. There is no pneumothorax. IMPRESSION: 1. Right lower lung volume loss and opacity favors right lower lobe collapse or combined right lower and middle lobe collapse. A contrast-enhanced CT of the chest might be considered to evaluate for central obstructing mass. 2. Acute to subacute appearing minimally displaced left ninth rib fracture. No pneumothorax. Electronically signed by: Luiz Boateng M.D. 02/06/2018 12:58 PM Dictated Date/Time: 02/06/2018 12:54 PM
[2018-02-06 13:08] LABS: BASO % 0.1 %; BASO ABS # 0.01 K/uL (0-0.2); HEMATOCRIT 40.9 % (42-52); HEMOGLOBIN 13.5 g/dL (14.0-18.0); IG# 0.05 K/uL (0.00-0.02); LYMPH % 2.7 %; LYMPH ABS # 0.41 K/uL (1.2-3.4); MEAN CORPUSCULAR HEMOGLOBIN 31.7 pg (25-34); MEAN PLATELET VOLUME 9.7 fL (7.4-10.4); MONO % 10.3 %; MONO ABS # 1.56 K/uL (0.11-0.59); NEUT % 86.6 %; NEUT ABS # 13.13 K/uL (1.4-6.5); PLATELET COUNT 224 K/uL (130-400); RED CELL DISTRIBUTION WIDTH CV 14.6 % (11.5-14.5); WHITE BLOOD COUNT 15.16 K/uL (4.8-10.8)
[2018-02-06 13:22] LABS: PTT PATIENT 26.4 SECONDS (21.0-31.0)
[2018-02-06 13:32] LABS: ALBUMIN 3.6 gm/dl (3.4-5.0); ALKALINE PHOSPHATASE 95 U/L (45-117); ALT/SGPT 35 U/L (12-78); AST/SGOT 19 U/L (15-37); BLOOD UREA NITROGEN 15 mg/dl (7-18); CALCIUM 8.8 mg/dl (8.5-10.1); CARBON DIOXIDE 25 mmol/L (21-32); GLUCOSE 128 mg/dl (70-99); LIPASE 124 U/L (73-393); POTASSIUM 3.8 mmol/L (3.5-5.1); SODIUM 136 mmol/L (136-145)
[2018-02-06 13:49] LABS: DIGOXIN 0.7 ng/ml (0.8-2.0)
[2018-02-06] MEDS ORDERED: VANCOMYCIN IV 1,500 MG in SODIUM CHLORIDE 0.9% 500ML 500 ML IV STA (13:54)
[2018-02-06] MEDS ORDERED: LEVAQUIN 750MG / 150ML D5W IV STA (13:54)
[2018-02-06] MEDS ORDERED: PIPERACILLIN/TAZOBACTAM 4.5 GM/100ML D5W IV STA (13:54)
--- NOTE | 2018-02-06 13:57 | DIAGNOSTIC IMAGING REPORT ---
HEAD WITHOUT CONTRAST (CT) CLINICAL HISTORY: 67 years-old Male with EVALUATE WEAKNESS. Acute weakness with dementia TECHNIQUE: Multiple axial CT images of the head were obtained without contrast. A dose lowering technique was utilized adhering to the principles of ALARA. CT DOSE: 537.48 mGy.cm COMPARISON: CT head 05/03/2006. FINDINGS: No acute intracranial hemorrhage, midline shift, intracranial mass, hydrocephalus, territorial ischemia or abnormal extra-axial collection. Atrophy with chronic microvascular ischemic changes redemonstrated. Cerebral vascular calcifications are noted. The calvarium is intact. Mastoid air cells and middle ear cavities are clear. Moderate mucoperiosteal thickening of the ethmoid air cells and right maxillary sinus with mild mucosal thickening of the left sphenoid sinus. 6 mm linear calcification about the superior right orbit redemonstrated. Soft tissues are within normal limits. IMPRESSION: No acute intracranial abnormality. The above report was generated using voice recognition software. It may contain grammatical, syntax or spelling errors. Electronically signed by: Edu Odom M.D. 02/06/2018 1:56 PM Dictated Date/Time: 02/06/2018 1:47 PM
[2018-02-06] MEDS ORDERED: OPTIRAY 320 IV PRN (14:00)
[2018-02-06] MEDS ORDERED: VANCOMYCIN CONSULT ACTIVE PRN ×2 (14:00→15:00)
--- NOTE | 2018-02-06 14:49 | DIAGNOSTIC IMAGING REPORT ---
(CHEST FOR PE) ANGIO WITH CT DOSE: 481.97 mGy.cm HISTORY: 67 years-old Male with . Presents with acutely altered mental status and shortness of breath. Reported right lower lobe collapse. TECHNIQUE: Multiple CTA images of the chest were obtained after the intravenous administration of 83 ml Optiray 320. Coronal and sagittal MIPS were obtained from the axial data set and were submitted for review. A dose lowering technique was utilized adhering to the principles of ALARA. COMPARISON: Chest radiograph of same day, CT chest 12/18/2011. FINDINGS: CTA: Mild multichamber cardiac enlargement. Coronary arterial calcifications are noted. Thoracic aorta is normal in both course and caliber without aneurysm or dissection. Moderate mixed plaque formation about the thoracic aorta. The imaged great vessels appear to be patent. The pulmonary arterial tree is opacified to level the subsegmental branches proximally. The segmental and subsegmental branches however are suboptimally evaluated secondary to respiratory motion. No focal filling defects identified to suggest pulmonary thromboembolic disease. CT CHEST: Homogeneous thyroid. Multiple nonenlarged lymph nodes about the prevascular space appear unchanged from comparison. Additionally, enlarged paratracheal lymph nodes measuring up to 11 mm in short axis are also noted which appear unchanged from comparison. Right hilar lymph nodes are seen measuring up to 10 mm. There is no pneumothorax. Right-sided bronchial wall thickening noted. Trace of bronchial secretions are noted with air-fluid level seen within the right mainstem bronchus and bronchus intermedius with opacified bronchi of the right lower lobe. Multifocal groundglass and consolidative opacities are seen throughout the right upper and lower lobes with collapse of the right middle lobe. Partial collapse of the right lower lobe. No definite obstructing endobronchial lesion identified. No acute process of the imaged upper abdomen. Bones appear intact. IMPRESSION: 1. No acute aortic pathology or evidence of pulmonary thromboembolic disease. 2. Tracheobronchial secretions with opacification of the right lower lobe bronchi and air fluid noted within the right mainstem bronchus and bronchus intermedius. There is resultant right middle lobe and partial right lower lobe collapse. No definite obstructing endobronchial mass lesion identified. Further evaluation with bronchoscopy recommended. 3. Multifocal consolidative and groundglass opacities throughout the right lung are suspicious for a combination of atelectasis with pneumonitis. 4. Prominent and enlarged mediastinal and hilar lymph nodes appear unchanged dating back to 12/18/2011. The above report was generated using voice recognition software. It may contain grammatical, syntax or spelling errors. Electronically signed by: Edu Odom M.D. 02/06/2018 2:48 PM Dictated Date/Time: 02/06/2018 2:34 PM
[2018-02-06] MEDS ORDERED: PIPERACILL/TAZOBAC CONSULT ACTIVE PRN (15:00)
[2018-02-06] MEDS ORDERED: ONDANSETRON INJ 2 MG/ML 2 ML VIAL IV PRN (15:00)
[2018-02-06] MEDS ORDERED: LORAZEPAM INJ 1 MG in SYRINGE 0.5 ML IV PRN (15:00)
--- NOTE | 2018-02-06 15:42 | History and Physical ---
History & Physical Date & Time of Service: Feb 06, 2018 at 15:19 Chief Complaint: AMS Primary Care Physician: Charles Stroud M.D. History of Present Illness Source: clinic records, hospital records This is a 67 year old male with a past medical history of dementia, alcohol/ drug induced Parkinson's, hx. of seizure disorder, atrial fibrillation on digoxin, HTN, HLD - presents from [facility] due to altered mental status; he has had difficulty ambulating; which he does with a walker at baseline. He is difficult to arouse; at baseline, he has a resting tremor. On exam, he has sonorous breath sounds; he is not waking to verbal or tactile stimuli, but does grimace at times. No rash noted throughout body, no edema. Upon presentation, noted to have high white count and lactic acid, he is tachycardic. EKG shows sinus tachycardia. CXR shows opacities on the R side; chest CT was then performed showing partial R lung collapse Past Medical/Surgical History Medical Problems: (1) Alcohol Liver Damage Nos (2) Altered mental status (3) Aspiration pneumonitis (4) Atrial Fibrillation (5) Chronic Kidney Disease, Unspecified (6) Dementia, Unspecified, Without Behavioral Disturbance (7) Diab Jennifer Wo Compl, Type Ii Or Unspec Type, Not Uncntrld (8) Food impaction of esophagus (9) Foreign Body Esophagus (10) Hyperlipidemia Nec/Nos (11) Hypertension Nos (12) Lung collapse Social History Smoking Status: Unknown if Ever Smoked Marital Status: single Housing status: skilled nursing Occupational Status: disabled Allergies Coded Allergies: Naproxen (Verified Allergy, Mild, 07/21/16) Home Medications Scheduled Atorvastatin (Lipitor), 20 MG PO DAILY Carbidopa/Levodopa (Sinemet 25MG/250MG), 1 TAB PO Q4 Digoxin (Digoxin), 0.125 MG PO DAILY Divalproex Sodium (Depakote Delay Rel), 500 MG PO BID Metoprolol Tartrate (Lopressor) (Lopressor), 50 MG PO DAILY Risperidone (Risperdal), 0.25 MG PO QAM Risperidone (Risperdal), 0.75 MG PO HS Sennosides-Docusate Sodium (Senokot S), 1 TAB PO BID Scheduled PRN Acetaminophen (Tylenol), 650 MG PO Q8 PRN for Pain Acetaminophen (Tylenol), 650 MG PO Q8 PRN for TEMP >101 Hydrocodone/Acetaminophen 5MG/325MG (Jackson 5MG/325MG), 1 TAB PO QID PRN for Pain Melatonin (Melatonin), 1 MG PO HS PRN for Insomnia Review of Systems Cannot obtain due to patient's mental status Physical Exam Vital Signs Date Time Temp Pulse Resp B/P (MAP) Pulse Ox O2 Delivery O2 Flow Rate FiO2 02/06/18 15:10 94 29 150/68 98 Room Air 02/06/18 14:41 99 18 141/69 94 Room Air 02/06/18 13:51 100 18 148/90 95 Room Air 02/06/18 12:25 94 Room Air 02/06/18 12:06 37.4 99 18 148/90 94 Room Air 02/06/18 12:05 95 General Appearance: + pertinent finding (Unable to arouse, at times grimacing; sonorous breath sounds) Head: normocephalic, atraumatic Eyes: normal inspection ENT: hearing grossly normal Respiratory/Chest: no respiratory distress, no accessory muscle use, + decreased breath sounds, + rhonchi Cardiovascular: regular rate, rhythm, no edema, no murmur Extremities/Musculoskelatal: normal capillary refill, no pedal edema Neurologic/Psych: + pertinent finding (resting tremor, no motor weakness; ) Diagnostics Laboratory Results Results Past 24 Hours Test 02/06/18 12:02 02/06/18 12:50 02/06/18 12:52 02/06/18 13:06 Range/Units Urine Color YELLOW Urine Appearance CLEAR CLEAR Urine pH 7.5 4.5-7.5 Urine Specific Flynn 1.013 1.000-1.030 Urine Protein NEG NEG Urine Glucose (UA) NEG NEG Urine Ketones 1+ NEG Urine Occult Blood NEG NEG Urine Nitrite NEG NEG Urine Bilirubin NEG NEG Urine Urobilinogen NEG NEG Urine Leukocyte Esterase NEG NEG White Blood Count 15.16 4.8-10.8 K/uL Red Blood Count 4.26 4.7-6.1 M/uL Hemoglobin 13.5 14.0-18.0 g/dL Hematocrit 40.9 42-52 % Mean Corpuscular Volume 96.0 80-100 fL Mean Corpuscular Hemoglobin 31.7 25-34 pg Mean Corpuscular Hemoglobin Concent 33.0 32-36 g/dl Platelet Count 224 130-400 K/uL Mean Platelet Volume 9.7 7.4-10.4 fL Neutrophils (%) (Auto) 86.6 % Lymphocytes (%) (Auto) 2.7 % Monocytes (%) (Auto) 10.3 % Eosinophils (%) (Auto) 0.0 % Basophils (%) (Auto) 0.1 % Neutrophils # (Auto) 13.13 1.4-6.5 K/uL Lymphocytes # (Auto) 0.41 1.2-3.4 K/uL Monocytes # (Auto) 1.56 0.11-0.59 K/uL Eosinophils # (Auto) 0.00 0-0.5 K/uL Basophils # (Auto) 0.01 0-0.2 K/uL RDW Standard Deviation 51.0 36.4-46.3 fL RDW Coefficient of Variation 14.6 11.5-14.5 % Immature Granulocyte % (Auto) 0.3 % Immature Granulocyte # (Auto) 0.05 0.00-0.02 K/uL Prothrombin Time 11.0 9.0-12.0 SECONDS Prothromb Time International Ratio 1.0 0.9-1.1 Activated Partial Thromboplast Time 26.4 21.0-31.0 SECONDS Partial Thromboplastin Ratio 1.0 Sodium Level 136 136-145 mmol/L Potassium Level 3.8 3.5-5.1 mmol/L Chloride Level 100 98-107 mmol/L Carbon Dioxide Level 25 21-32 mmol/L Anion Gap 11.0 3-11 mmol/L Blood Urea Nitrogen 15 7-18 mg/dl Creatinine 0.70 0.60-1.40 mg/dl Est Creatinine Clear Calc Drug Dose 105.7 ml/min Estimated GFR () 113.2 Estimated GFR (Non- 97.7 BUN/Creatinine Ratio 22.0 10-20 Random Glucose 128 70-99 mg/dl Calcium Level 8.8 8.5-10.1 mg/dl Magnesium Level 1.9 1.8-2.4 mg/dl Total Bilirubin 0.7 0.2-1 mg/dl Direct Bilirubin 0.2 0-0.2 mg/dl Aspartate Amino Transf (AST/SGOT) 19 15-37 U/L Alanine Aminotransferase (ALT/SGPT) 35 12-78 U/L Alkaline Phosphatase 95 45-117 U/L Troponin I < 0.015 0-0.045 ng/ml Total Protein 8.0 6.4-8.2 gm/dl Albumin 3.6 3.4-5.0 gm/dl Lipase 124 73-393 U/L Thyroid Stimulating Hormone (TSH) 1.580 0.300-4.500 uIu/ml Digoxin Level 0.7 0.8-2.0 ng/ml Valproic Acid (Depakene) Level 88 50-100 mcg/ml Bedside Lactic Acid Venous 2.92 0.90-1.70 mmol/L Venous Blood pH 7.41 7.36-7.41 Venous Blood Partial Pressure CO2 47 38.0-50.0 mmHg Venous Blood Partial Pressure O2 27 mmHg Venous Blood HCO3 29 mmol/L Venous Blood Oxygen Saturation < 60.0 % Venous Blood Base Excess 3.3 mEq/L Ammonia 12.9 11-32 umol/L Microbiology Results 02/06/18 Blood Culture, Received Pending 02/06/18 Blood Culture, Received Pending 02/06/18 Urine Culture, Received Pending Diagnostic Radiology HEAD WITHOUT CONTRAST (CT) CLINICAL HISTORY: 67 years-old Male with EVALUATE WEAKNESS. Acute weakness with dementia TECHNIQUE: Multiple axial CT images of the head were obtained without contrast. A dose lowering technique was utilized adhering to the principles of ALARA. CT DOSE: 537.48 mGy.cm COMPARISON: CT head 05/03/2006. FINDINGS: No acute intracranial hemorrhage, midline shift, intracranial mass, hydrocephalus, territorial ischemia or abnormal extra-axial collection. Atrophy with chronic microvascular ischemic changes redemonstrated. Cerebral vascular calcifications are noted. The calvarium is intact. Mastoid air cells and middle ear cavities are clear. Moderate mucoperiosteal thickening of the ethmoid air cells and right maxillary sinus with mild mucosal thickening of the left sphenoid sinus. 6 mm linear calcification about the superior right orbit redemonstrated. Soft tissues are within normal limits. IMPRESSION: No acute intracranial abnormality. CHEST ONE VIEW PORTABLE CLINICAL HISTORY: Weakness. COMPARISON STUDY: Chest radiograph July 20, 2016. FINDINGS: There is no pneumothorax. Extensive right lower lung volume loss is noted with elevation of the right hemidiaphragm and right basilar opacity. Mild interstitial thickening is likely chronic. Several old left rib fractures are noted as well as an acute to subacute minimally displaced lateral left ninth rib fracture. There is no pneumothorax. IMPRESSION: 1. Right lower lung volume loss and opacity favors right lower lobe collapse or combined right lower and middle lobe collapse. A contrast-enhanced CT of the chest might be considered to evaluate for central obstructing mass. 2. Acute to subacute appearing minimally displaced left ninth rib fracture. No pneumothorax. (CHEST FOR PE) ANGIO WITH CT DOSE: 481.97 mGy.cm HISTORY: 67 years-old Male with . Presents with acutely altered mental status and shortness of breath. Reported right lower lobe collapse. TECHNIQUE: Multiple CTA images of the chest were obtained after the intravenous administration of 83 ml Optiray 320. Coronal and sagittal MIPS were obtained from the axial data set and were submitted for review. A dose lowering technique was utilized adhering to the principles of ALARA. COMPARISON: Chest radiograph of same day, CT chest 12/18/2011. FINDINGS: CTA: Mild multichamber cardiac enlargement. Coronary arterial calcifications are noted. Thoracic aorta is normal in both course and caliber without aneurysm or dissection. Moderate mixed plaque formation about the thoracic aorta. The imaged great vessels appear to be patent. The pulmonary arterial tree is opacified to level the subsegmental branches proximally. The segmental and subsegmental branches however are suboptimally evaluated secondary to respiratory motion. No focal filling defects identified to suggest pulmonary thromboembolic disease. CT CHEST: Homogeneous thyroid. Multiple nonenlarged lymph nodes about the prevascular space appear unchanged from comparison. Additionally, enlarged paratracheal lymph nodes measuring up to 11 mm in short axis are also noted which appear unchanged from comparison. Right hilar lymph nodes are seen measuring up to 10 mm. There is no pneumothorax. Right-sided bronchial wall thickening noted. Trace of bronchial secretions are noted with air-fluid level seen within the right mainstem bronchus and bronchus intermedius with opacified bronchi of the right lower lobe. Multifocal groundglass and consolidative opacities are seen throughout the right upper and lower lobes with collapse of the right middle lobe. Partial collapse of the right lower lobe. No definite obstructing endobronchial lesion identified. No acute process of the imaged upper abdomen. Bones appear intact. IMPRESSION: 1. No acute aortic pathology or evidence of pulmonary thromboembolic disease. 2. Tracheobronchial secretions with opacification of the right lower lobe bronchi and air fluid noted within the right mainstem bronchus and bronchus intermedius. There is resultant right middle lobe and partial right lower lobe collapse. No definite obstructing endobronchial mass lesion identified. Further evaluation with bronchoscopy recommended. 3. Multifocal consolidative and groundglass opacities throughout the right lung are suspicious for a combination of atelectasis with pneumonitis. 4. Prominent and enlarged mediastinal and hilar lymph nodes appear unchanged dating back to 12/18/2011. EKG Sinus tachycardia Right bundle branch block Abnormal ECG Impression Assessment and Plan This is a 67 year old male with a past medical history of dementia, alcohol/ drug induced Parkinson's, hx. of seizure disorder, atrial fibrillation on digoxin, HTN, HLD - presents from [facility] due to altered mental status Altered Mental Status Possible Acute Metabolic Encephalopathy in the setting of Dementia Alcohol/Drug Induced Parkinson's - unsure of underlying cause, but possible pneumonia may be playing a part - Head CT negative for any acute issues - patient has been following neurology, he is on Sinemet for Parkinson's - underlying dementia playing a part as well - will treat underlying causes and monitor - neurology consulted - case management consulted SIRS criteria - possible sepsis - giving broad antibiotics - IV fluids - repeat lactic acid q4 hours for now Seizure Disorder - Will change PO Depakote to IV - get an EEG as his current condition could be a post-ictal state - neurology consulted - valproic acid level is therapeutic Lung Collapse - pulmonary consulted for possible bronch Paroxysmal A. Fib - currently in NSR - continue digoxin - not an anticoagulation candidate - continue b-melissa as well DVT ppx - Lovenox FULL CODE Resuscitation Status VTE Prophylaxis Will order VTE Prophylaxis: Yes
--- NOTE | 2018-02-06 16:08 | Pharmacy Progress Note ---
Pharmacy Abx Initial Consult Date of Service Feb 06, 2018. Pharmacy Dosing Scope Date of Consult: 02/06/2018 Consultation requested by: Dr. Barth Pharmacy is consulted to initiate Vancomycin IV dosing therapy, order appropriate labs and adjust drug dose/frequency. Subjective The patient is a 67 year old male admitted on 02/06/2018 for AMS/possible HAP. Objective Height (Feet): 5 Height (Inches): 10 Weight (Kilograms): 74.90 Vital Signs (Past 12Hrs) Vital Signs Past 12 Hours Date Time Temp Pulse Resp B/P (MAP) Pulse Ox O2 Delivery O2 Flow Rate FiO2 02/06/18 15:10 94 29 150/68 98 Room Air 02/06/18 14:41 99 18 141/69 94 Room Air 02/06/18 13:51 100 18 148/90 95 Room Air 02/06/18 12:25 94 Room Air 02/06/18 12:06 37.4 99 18 148/90 94 Room Air 02/06/18 12:05 95 Lab Results (24Hrs) Laboratory Tests (24 Hours) Test 02/06/18 12:50 White Blood Count 15.16 K/uL (4.8-10.8) H Red Blood Count 4.26 M/uL (4.7-6.1) L Hemoglobin 13.5 g/dL (14.0-18.0) L Hematocrit 40.9 % (42-52) L Mean Corpuscular Volume 96.0 fL (80-100) Mean Corpuscular Hemoglobin 31.7 pg (25-34) Mean Corpuscular Hemoglobin Concent 33.0 g/dl (32-36) Platelet Count 224 K/uL (130-400) Mean Platelet Volume 9.7 fL (7.4-10.4) Neutrophils (%) (Auto) 86.6 % Lymphocytes (%) (Auto) 2.7 % Monocytes (%) (Auto) 10.3 % Eosinophils (%) (Auto) 0.0 % Basophils (%) (Auto) 0.1 % Neutrophils # (Auto) 13.13 K/uL (1.4-6.5) H Lymphocytes # (Auto) 0.41 K/uL (1.2-3.4) L Monocytes # (Auto) 1.56 K/uL (0.11-0.59) H Eosinophils # (Auto) 0.00 K/uL (0-0.5) Basophils # (Auto) 0.01 K/uL (0-0.2) Micro Results Date/Time Source Procedure Growth Status 02/06/18 13:06 Blood Blood Culture Pending Received 02/06/18 12:50 Blood Blood Culture Pending Received 02/06/18 12:02 Urine , Clean Catch Urine Culture Pending Received Risk Factors for Resistance * Resident in a custodial or extended-care facility ([facility]) Assessment & Plan Assessment 67 year old male admitted for possible HAP. Plan IV Zosyn and Vancomycin for treatment of HAP. Vancomycin IV * Loading dose: 1500 mg (20 mg/kg) in ED. * Maintenance dose: 1250 mg IV (~16 mg/kg) every 12 hours * Estimated PK parameters: ke: 0.087 hr-1, T1/2: ~8hr * Goal trough level 15 to 20 mcg/mL * MRSA swab pending * Trough level ordered for 02/08/18 before 1400 dose if therapy is continued until then. Piperacillin/tazobactam * 4.5 g bolus administered over 30 minutes, then 3.375 g IV extended infusion every 8 hours for CrCl greater than 20 mL/min Pharmacy will continue to follow and will adjust dose/frequency as necessary. Thank you.
[2018-02-06] MEDS ORDERED: MAGNESIUM SULFATE 1GM / D5W 100 ML IV STA (16:12)
[2018-02-06 16:30] VITALS: BP 147/61; PULSE 90; TEMP 36.8; O2SAT 96; BMI 23.7
[2018-02-06] MEDS ORDERED: DIGOXIN IV 125 MCG in SYRINGE 9.5 ML IV ONE (16:30)
[2018-02-06] MEDS ORDERED: SODIUM CHLORIDE 0.9% 1000ML 1,000 ML IV SCH (17:15)
[2018-02-06 17:25] VITALS: BP 147/61; PULSE 90; TEMP 36.8; O2SAT 96
[2018-02-06 18:56] VITALS: BP 145/68; PULSE 87
[2018-02-06] MEDS: METOPROLOL TARTRATE 1 MG/ML VIAL IV. SCH (18:59)
[2018-02-06 19:07] VITALS: PULSE 78; TEMP 36.9; O2SAT 94
[2018-02-06] MEDS: VALPROATE SOD IV 500 MG in DEXTROSE 5% 50ML 50 ML IV SCH (20:32)
[2018-02-06] MEDS: ENOXAPARIN 40 MG/0.4 ML SYR SC SCH (20:32)
[2018-02-06] MEDS: PIPERACILL/TAZOBAC IV 3.375 GM in DEXTROSE 5% 100ML 100 ML IV SCH (20:32)
[2018-02-07] VITALS (13 sets, daily range): BP systolic 117–162; BP diastolic 64–73; PULSE 79–107; TEMP 36.9–37.7; O2SAT 95–99
[2018-02-07] MEDS: METOPROLOL TARTRATE 1 MG/ML VIAL IV. SCH ×5 (00:12→23:27)
[2018-02-07] MEDS ORDERED: NURSING VERBAL MED ORDER ONE (00:30)
[2018-02-07] MEDS: VANCOMYCIN IV 1,250 MG in SODIUM CHLORIDE 0.9% 250ML 250 ML IV SCH ×2 (01:41→14:14)
[2018-02-07] MEDS: PIPERACILL/TAZOBAC IV 3.375 GM in DEXTROSE 5% 100ML 100 ML IV SCH ×3 (04:10→21:32)
[2018-02-07 04:20] LABS: BASO % 0.1 %; BASO ABS # 0.01 K/uL (0-0.2); HEMATOCRIT 34.7 % (42-52); HEMOGLOBIN 11.5 g/dL (14.0-18.0); IG# 0.03 K/uL (0.00-0.02); LYMPH % 9.9 %; LYMPH ABS # 1.32 K/uL (1.2-3.4); MEAN CELL VOLUME 95.6 fL (80-100); MEAN CORPUSCULAR HEMOGLOBIN 31.7 pg (25-34); MEAN CORPUSCULAR HGB CONC 33.1 g/dl (32-36); MEAN PLATELET VOLUME 9.5 fL (7.4-10.4); MONO % 10.9 %; MONO ABS # 1.46 K/uL (0.11-0.59); NEUT % 78.9 %; NEUT ABS # 10.53 K/uL (1.4-6.5); PLATELET COUNT 188 K/uL (130-400); RED CELL DISTRIBUTION WIDTH CV 14.5 % (11.5-14.5); WHITE BLOOD COUNT 13.35 K/uL (4.8-10.8)
[2018-02-07 04:41] LABS: CALCIUM 7.9 mg/dl (8.5-10.1); CREATININE 0.65 mg/dl (0.60-1.40); POTASSIUM 3.4 mmol/L (3.5-5.1)
[2018-02-07] MEDS: VALPROATE SOD IV 500 MG in DEXTROSE 5% 50ML 50 ML IV SCH ×2 (09:10→20:13)
--- NOTE | 2018-02-07 09:43 | EEG Procedure Note ---
EEG Procedure Note Date of Service Feb 07, 2018. Start / End Times Start Time: 8:05 AM End Time: 8:25 AM Referring Physician Dagoberto Barth History This is a 67-year-old male who presents with an acute change in mental status. EEG for further evaluation of possible seizure etiology. Home Medication List Scheduled Atorvastatin (Lipitor), 20 MG PO DAILY Carbidopa/Levodopa (Sinemet 25MG/250MG), 1 TAB PO Q4 Digoxin (Digoxin), 0.125 MG PO DAILY Divalproex Sodium (Depakote Delay Rel), 500 MG PO BID Metoprolol Tartrate (Lopressor) (Lopressor), 50 MG PO DAILY Risperidone (Risperdal), 0.25 MG PO QAM Risperidone (Risperdal), 0.75 MG PO HS Sennosides-Docusate Sodium (Senokot S), 1 TAB PO BID Scheduled PRN Acetaminophen (Tylenol), 650 MG PO Q8 PRN for Pain Acetaminophen (Tylenol), 650 MG PO Q8 PRN for TEMP >101 Hydrocodone/Acetaminophen 5MG/325MG (Pollock 5MG/325MG), 1 TAB PO QID PRN for Pain Melatonin (Melatonin), 1 MG PO HS PRN for Insomnia Inpatient Medication List Current Inpatient Medications Medications (Trade) Dose Ordered Sig/Gagandeep Route Start Time Stop Time Status Last Admin Dose Admin Ioversol (Optiray 320) 111 ml UD PRN IV 02/06/18 14:00 02/10/18 13:59 Piperacillin Sod/ Tazobactam Sod 3.375 gm/Dextrose 115 ml @ 28.75 mls/ hr Q8H IV 02/06/18 20:00 02/13/18 19:59 02/07/18 04:10 28.75 MLS/HR Miscellaneous Information (Consult) 1 ea UD PRN N/A 02/06/18 15:00 03/08/18 14:59 Vancomycin HCl 1250 mg/Sodium Chloride 275 ml @ 125 mls/hr Q12H IV 02/07/18 02:00 02/13/18 14:59 02/07/18 01:41 125 MLS/HR Vancomycin HCl (Consult) 1 ea UD PRN N/A 02/06/18 15:00 03/08/18 14:59 Levofloxacin 750 mg/Prmx 150 ml @ 100 mls/hr Q24H IV 02/07/18 16:00 02/13/18 15:59 Enoxaparin Sodium (Lovenox Inj) 40 mg Q24H SC 02/06/18 21:00 03/08/18 20:59 02/06/18 20:32 40 MG Ondansetron HCl (Zofran Inj) 4 mg Q6H PRN IV 02/06/18 15:00 03/08/18 14:59 Valproate Sodium 500 mg/Dextrose 55 ml @ 55 mls/hr BID IV 02/06/18 21:00 03/08/18 20:59 02/07/18 09:10 55 MLS/HR Digoxin 125 mcg/ Syringe 10 ml @ 2 mls/min DAILY@16 IV 02/07/18 16:00 03/09/18 15:59 Lorazepam 1 mg/ Syringe 1 ml @ 0.5 mls/min Q4 PRN IV 02/06/18 15:00 03/08/18 14:59 Metoprolol Tartrate (Lopressor Iv) 5 mg Q6 IV. 02/06/18 18:00 03/08/18 17:59 02/07/18 05:52 5 MG Description This is a 21 electrode EEG with a single channel dedicated to limited EKG. The electrodes were placed in accordance with the International 10-20 system. At the start of this recording the patient was in a reported altered mental status. Background was poorly organized with poorly formed anterior to posterior gradient. Background was composed of predominantly 6-7 Hz theta frequencies with intermixed alpha/beta and rare delta frequencies. Hyperventilation was not done. Intermittent photic stimulation at various frequencies did not produce any abnormalities. There was no state changes or sleep transients. On video there was noted to be episodes of brief shaking of the arms or full body jerks. These movements did not appear to be epileptic when viewing the video. On EEG movement artifact could be seen but otherwise there was no EEG correlation to movements on video. Interpretation This is an abnormal routine EEG secondary to mild background disorganization and slowing. There was no electrographic seizures or epileptiform discharges. Clinical Correlation This EEG indicates a mild encephalopathy of nonspecific etiology. Brief episodes of shaking of the arms and full body jerks seen on the video had no EEG correlation and are nonepileptic.
--- NOTE | 2018-02-07 14:12 | Neurology Consultation ---
Neurology Consultation Date of Consultation: Feb 07, 2018. Attending Physician: Tl Carballo M.D. Primary Care Physician: Charles Stroud M.D. History of Present Illness Source: hospital records A 67 year old male with a past medical history of dementia, alcohol/drug induced Parkinson's, hx. of seizure disorder, atrial fibrillation on digoxin, and hypertension admitted for encephalopathy and gait difficulty. On Admission UA was negative. CT Brain non contrast was negative for acute changes. History limited. No family at bedside. Patient is poor historian. Denies complaint. Past Medical/Surgical History Medical Problems: (1) Aspiration pneumonitis Status: Acute (2) Food impaction of esophagus Status: Acute (3) Pneumonia Status: Acute Social History Smoking Status: Unknown if ever smoked Marital Status: single Housing Status: other Occupation Status: disabled Allergies Coded Allergies: Naproxen (Verified Allergy, Mild, 07/21/16) Current Inpatient Medications Current Inpatient Medications Medications (Trade) Dose Ordered Sig/Gagandeep Route Start Time Stop Time Status Last Admin Dose Admin Ioversol (Optiray 320) 111 ml UD PRN IV 02/06/18 14:00 02/10/18 13:59 Piperacillin Sod/ Tazobactam Sod 3.375 gm/Dextrose 115 ml @ 28.75 mls/ hr Q8H IV 02/06/18 20:00 02/13/18 19:59 02/07/18 12:22 28.75 MLS/HR Miscellaneous Information (Consult) 1 ea UD PRN N/A 02/06/18 15:00 03/08/18 14:59 Vancomycin HCl 1250 mg/Sodium Chloride 275 ml @ 125 mls/hr Q12H IV 02/07/18 02:00 02/13/18 14:59 02/07/18 01:41 125 MLS/HR Vancomycin HCl (Consult) 1 ea UD PRN N/A 02/06/18 15:00 03/08/18 14:59 Levofloxacin 750 mg/Prmx 150 ml @ 100 mls/hr Q24H IV 02/07/18 16:00 02/13/18 15:59 Enoxaparin Sodium (Lovenox Inj) 40 mg Q24H SC 02/06/18 21:00 03/08/18 20:59 02/06/18 20:32 40 MG Ondansetron HCl (Zofran Inj) 4 mg Q6H PRN IV 02/06/18 15:00 03/08/18 14:59 Valproate Sodium 500 mg/Dextrose 55 ml @ 55 mls/hr BID IV 02/06/18 21:00 03/08/18 20:59 02/07/18 09:10 55 MLS/HR Digoxin 125 mcg/ Syringe 10 ml @ 2 mls/min DAILY@16 IV 02/07/18 16:00 03/09/18 15:59 Lorazepam 1 mg/ Syringe 1 ml @ 0.5 mls/min Q4 PRN IV 02/06/18 15:00 03/08/18 14:59 Metoprolol Tartrate (Lopressor Iv) 5 mg Q6 IV. 02/06/18 18:00 03/08/18 17:59 02/07/18 12:23 5 MG Physical Exam Vital Signs (Past 24 Hrs): Date Time Temp Pulse Resp B/P (MAP) Pulse Ox O2 Delivery O2 Flow Rate FiO2 02/07/18 12:23 88 149/73 02/07/18 11:33 37.0 88 18 149/73 (98) 98 02/07/18 08:00 96 Room Air 02/07/18 06:54 37.1 79 23 137/70 (92) 97 Room Air 02/07/18 05:52 85 127/68 02/07/18 05:51 85 127/68 (87) 02/07/18 03:49 37.1 86 23 129/64 (85) 96 Room Air 02/07/18 00:12 85 150/69 02/07/18 00:10 96 Room Air 02/07/18 00:08 37.3 85 22 150/69 (96) 96 Room Air 02/06/18 19:07 36.9 78 18 94 Room Air 02/06/18 18:59 87 145/68 02/06/18 18:56 87 145/68 (93) 02/06/18 17:25 36.8 90 18 147/61 (89) 96 Room Air 02/06/18 16:34 76 02/06/18 16:30 36.8 90 18 147/61 96 Room Air 02/06/18 16:21 37.4 92 25 146/78 99 02/06/18 16:01 146/78 02/06/18 15:51 92 25 99 02/06/18 15:31 150/70 02/06/18 15:21 94 24 98 02/06/18 15:20 150/68 02/06/18 15:12 150/68 02/06/18 15:10 94 29 150/68 98 Room Air 02/06/18 14:51 91 19 95 02/06/18 14:41 99 18 141/69 94 Room Air 02/06/18 14:41 141/69 Appears chronically ill. No distress. Speech is dysarthric. He can repeat. Following simple commands. Oriented to left and right. No drift in upper extremities. Bilateral upper extremity tremor, L>R.. Disoriented o state month and year. EOMI limited in all directions. No nystagmus. Tongue midline. Stength in upper extremities is symmetric. Dorsfilexion is full bilateral. Difficult with lifting left leg due to pain. Intention tremor on finger to nose. Gait deferred. Knee jerks hypoacive. No clonus. Laboratory Results Past 24 Hours: 02/07/18 04:06 Red Blood Count 3.63, Mean Corpuscular Volume 95.6, Mean Corpuscular Hemoglobin 31.7, Mean Corpuscular Hemoglobin Concent 33.1, Mean Platelet Volume 9.5, Neutrophils (%) (Auto) 78.9, Lymphocytes (%) (Auto) 9.9, Monocytes (%) (Auto) 10.9, Eosinophils (%) (Auto) 0.0, Basophils (%) (Auto) 0.1, Neutrophils # (Auto ) 10.53, Lymphocytes # (Auto) 1.32, Monocytes # (Auto) 1.46, Eosinophils # (Auto ) 0.00, Basophils # (Auto) 0.01 02/07/18 04:06 Test 02/07/18 04:06 White Blood Count 13.35 K/uL (4.8-10.8) Red Blood Count 3.63 M/uL (4.7-6.1) Hemoglobin 11.5 g/dL (14.0-18.0) Hematocrit 34.7 % (42-52) Mean Corpuscular Volume 95.6 fL (80-100) Mean Corpuscular Hemoglobin 31.7 pg (25-34) Mean Corpuscular Hemoglobin Concent 33.1 g/dl (32-36) Platelet Count 188 K/uL (130-400) Mean Platelet Volume 9.5 fL (7.4-10.4) Neutrophils (%) (Auto) 78.9 % Lymphocytes (%) (Auto) 9.9 % Monocytes (%) (Auto) 10.9 % Eosinophils (%) (Auto) 0.0 % Basophils (%) (Auto) 0.1 % Neutrophils # (Auto) 10.53 K/uL (1.4-6.5) Lymphocytes # (Auto) 1.32 K/uL (1.2-3.4) Monocytes # (Auto) 1.46 K/uL (0.11-0.59) Eosinophils # (Auto) 0.00 K/uL (0-0.5) Basophils # (Auto) 0.01 K/uL (0-0.2) RDW Standard Deviation 51.0 fL (36.4-46.3) RDW Coefficient of Variation 14.5 % (11.5-14.5) Immature Granulocyte % (Auto) 0.2 % Immature Granulocyte # (Auto) 0.03 K/uL (0.00-0.02) Anion Gap 9.0 mmol/L (3-11) Est Creatinine Clear Calc Drug Dose 113.9 ml/min Estimated GFR () 116.7 Estimated GFR (Non- 100.7 BUN/Creatinine Ratio 18.8 (10-20) Lactic Acid Level 1.2 mmol/L (0.4-2.0) Calcium Level 7.9 mg/dl (8.5-10.1) Magnesium Level 2.1 mg/dl (1.8-2.4) Date/Time Source Procedure Growth Status 02/06/18 17:20 Nasal MRSA DNA Surveillance Screen - Final Specimen Negative for MRSA by DNA Probe Complete Imaging CT Brain non contrast reviewed. No acute intracranial abnormality. Impression I believe this patient has a baseline dementia with parkinsonian features. CT brain non contrast reviewed and negative. Non focal examine. Unclear if this is patient baseline. Low suspicion for acute neurological disorder. Patient EEG negative for epileptiform activity. Patient does have Afib and is not on anticoagulation. Patient is high risk for stroke given history of Afib not on anticoagulation. If SNF noticed an acute decline in gait or language function embolic stroke is certainly possible. Although I feel this is less likely. If patient can tolerate, an MRI brain would be recommend for further evaluation ( can perform limited study with DWI/ADC sequences). Otherwise no further neuro work up necessary at this time.
--- NOTE | 2018-02-07 14:29 | Progress Note ---
Progress Note Date of Service Feb 07, 2018. Progress Note Subjective / Physical Exam Patient seen and examined today. Patient has difficulty sitting up for physical exam and required assistance from nurse to turn him over for posterior auscultation. Patient does not take deep breaths but has been breathing comfortably on room air and not in distress. Patient is verbal but appears to have deficits in memory vs cognition which may be from history of dementia. Patient denies acute pain. Abdomen is soft and nontender with bowel sounds present. No edema of lower extremities Assessment and Plan This is a 67 year old male with a past medical history of dementia, alcohol/ drug induced Parkinson's, hx. of seizure disorder, atrial fibrillation on digoxin, HTN, HLD - presents from [facility] due to altered mental status Altered Mental Status -As per ED documentation on 02/06/18 "The patient is a 67 year old male who presents to the Emergency Room with complaints of altered mental status. The patient was transported by EMS from [facility]. Per report, the patient has dementia at baseline. This morning he was unable to ambulate, when he normally is able to with a walker. They note patient also has mumbled speech at his baseline. They were concerned as patient was harder to arouse this morning, so they sent him in." -Head CT negative -was subsequently admitted and the mental status was attributed to possible Acute Metabolic Encephalopathy in the setting of Dementia Alcohol/Drug Induced Parkinson's due to pneumonia -started on Vancomycin and Zosyn for pneumonia coverage -patient was continued Valproic acid in IV form as same dose 500 mg BID, continue -Home medication of risperidal held to avoid sedation, continue to hold -Home medication of Carbidopa was held in case this was contributory -EEG on 02/07/18" This is an abnormal routine EEG secondary to mild background disorganization and slowing. There was no electrographic seizures or epileptiform discharges. This EEG indicates a mild encephalopathy of nonspecific etiology. Brief episodes of shaking of the arms and full body jerks seen on the video had no EEG correlation and are nonepileptic." -appreciate neurology recommendations History of Seizure Disorder Depakote IV EEG obtained awaiting neurology recommendations On admission patient met SIRS criteria and given IV fluids with Vancomycin and Zosyn for pneumonia coverage Admission CTA "1. No acute aortic pathology or evidence of pulmonary thromboembolic disease. 2. Tracheobronchial secretions with opacification of the right lower lobe bronchi and air fluid noted within the right mainstem bronchus and bronchus intermedius. There is resultant right middle lobe and partial right lower lobe collapse. No definite obstructing endobronchial mass lesion identified. Further evaluation with bronchoscopy recommended. 3. Multifocal consolidative and groundglass opacities throughout the right lung are suspicious for a combination of atelectasis with pneumonitis. 4. Prominent and enlarged mediastinal and hilar lymph nodes appear unchanged dating back to 12/18/2011." -pulmonary service asked to evaluate possibly with bronchoscopy for abnormal opacities and right lung collapse Paroxysmal A. Fib - currently in NSR - continue digoxin - not on anticoagulation and was deemed not an anticoagulation candidate - continue b-melissa DVT ppx - Lovenox FULL CODE Patient has in the chart a POLST form signed concurrently by his brother Fermín Kovacs called from [phone] and hospitalist discussed with him the current health of Mr. Arriaga. Fermín is the medical decision maker in case any permission needed for doing procedures
[2018-02-07] MEDS: DIGOXIN IV 125 MCG in SYRINGE 9.5 ML IV SCH (16:03)
[2018-02-07] MEDS: LEVOFLOXACIN / D5W 750 MG in PREMIXED IN D5W 150 ML IV SCH (16:03)
--- NOTE | 2018-02-07 16:55 | Pulmonary Consultation ---
History General Date of Service: Feb 07, 2018. Stated Complaint: Altered Mental Status,Lung Collapse HPI The patient is a 67 year old male who presents to [facility] with complaints of Altered Mental Status and a question of Lung Collapse. The patient's primary care provider is Charles Stroud M.D.. The patient has a history of Parkinson's disease and presents with shortness of breath. He currently is disoriented but is able to converse with redirection. The patient is a poor historian. He knows his full name but is unable to provide his date of or any pertinent family information. Dr. Carballo has been very helpful in obtaining family contacts and it should be noted that names and phone numbers are in the chart under his note. CT scan was done and shows probable mucoid impaction at the right main bronchus at the lower lobe takeoff. Patient currently is not hypoxic and has no respiratory distress. He denies any cough or sputum production. He does report himself to be a every day smoker. He is unable to give me any of his other medical history or work history. He denies ever being and states that he may have 2 or 3 children but is unsure if it is 2 or 3 and where they live. The patient currently denies shortness of breath, chest pain, back pain. He denies fever, chills, shakes. He has no nausea or vomiting. He denies back pain. He states that he does ambulate with a walker and reports no history of falls. Historian: patient, other (Review of chart) Review of Systems A total of 12 systems was reviewed and is negative other than as listed above in the HPI All Other Symptoms All Other Systems: Reviewed and Negative Past Medical History Past Medical History: Medical Problems: (1) Alcohol Liver Damage (2) Altered mental status (3) paroxysmal Atrial Fibrillation on digoxin (4) Chronic Kidney Disease, Unspecified (5) Dementia, Unspecified, Without Behavioral Disturbance (6) Diab Jennifer Wo Compl, Type Ii Or Unspec Type, Not Uncntrld (7) Foreign Body Esophagus (8) Hyperlipidemia Nec/Nos (9) Hypertension Nos (10) history of seizure disorder (11) resident at [facility] Past Surgical History: Patient unable to provide surgical history Family History Patient unable to provide family history Social History Hx Tobacco Use In Past Year?: Yes Smoking Status: Current Every Day Smoker Alcohol: never Drug Use: none Marital status: single Housing status: longterm ([facility]) Occupational Status: disabled History of MDRO History of MDRO: No Allergies Coded Allergies: Naproxen (Verified Allergy, Mild, 07/21/16) Current Medications Reported Home Medications Medications Dose Route/Sig Max Daily Dose Days Date Category Dose Instructions [place] 5MG/325MG (Acetaminophen/Hydrocodone Bitart) Tab 1 Tab PO QID PRN 07/20/16 Reported PRN PAIN Risperdal (Risperidone) 0.25 Mg Tab 0.75 Mg PO HS 07/20/16 Reported Risperdal (Risperidone) 0.25 Mg Tab 0.25 Mg PO QAM 07/20/16 Reported Melatonin 1 Mg Tab 1 Mg PO HS PRN 07/20/16 Reported Digoxin 0.125 Mg Tab 0.125 Mg PO DAILY 07/20/16 Reported hold for pulse <60 Depakote Delay Rel (Divalproex Sodium) 500 Mg Tab 500 Mg PO BID 09/06/14 Reported Lipitor (Atorvastatin Calcium) 20 Mg Tab 20 Mg PO DAILY 09/06/14 Reported Tylenol (Acetaminophen) 325 Mg Tab 650 Mg PO Q8 PRN 03/07/12 Reported DO NOT EXCEED 3GM/24HR Senokot S (Sennosides-Docusate Sodium) 1 Tab Tab 1 Tab PO BID 11/30/11 Reported Tylenol (Acetaminophen) 325 Mg Tab 650 Mg PO Q8 PRN 10/21/11 Reported DO NOT EXCEED 3GM/24HR Sinemet 25MG/250MG (Carbidopa/Levodopa) Tab 1 Tab PO Q4 10/21/11 Reported Lopressor (Metoprolol Tartrate) 50 Mg Tab 50 Mg PO DAILY 12/09/09 Reported Physical Physical Exam Vital Signs: Date Time Temp Pulse Resp B/P (MAP) Pulse Ox O2 Delivery O2 Flow Rate FiO2 02/07/18 16:03 83 02/07/18 15:28 36.9 83 20 137/73 (94) 95 Room Air 02/07/18 12:23 88 149/73 02/07/18 11:33 37.0 88 18 149/73 (98) 98 02/07/18 08:00 96 Room Air 02/07/18 06:54 37.1 79 23 137/70 (92) 97 Room Air 02/07/18 05:52 85 127/68 02/07/18 05:51 85 127/68 (87) 02/07/18 03:49 37.1 86 23 129/64 (85) 96 Room Air 02/07/18 00:12 85 150/69 02/07/18 00:10 96 Room Air 02/07/18 00:08 37.3 85 22 150/69 (96) 96 Room Air 02/06/18 19:07 36.9 78 18 94 Room Air 02/06/18 18:59 87 145/68 02/06/18 18:56 87 145/68 (93) 02/06/18 17:25 36.8 90 18 147/61 (89) 96 Room Air Weight in Kilograms: 73.4 GENERAL : No acute distress. Pleasant EYES: No icterus, gaze conjugate. Pupils equal and reactive to light NOSE: No evidence of epistaxis. No supplemental oxygen in use at this time MOUTH: No lesions or candidiasis. Mucosa dry. Patient has no teeth NECK: Supple. No stridor appreciated LUNGS: CTA B/L, no wheezes, rales or rhonchi. Patient does have some decreased breath sounds at the right base HEART: Regular, rate controlled. Patient has a loud click at the PMI ABDOMEN: Soft, NT, ND, BS Present EXTREMITIES: No LE edema, pedal pulses intact NEURO: Awake and alert. Able to give name but not date of . Unable to give any significant history. Gait and Romberg deferred. Diagnostics Labs Results Past 24 Hours Test 02/06/18 17:20 02/06/18 23:57 02/07/18 04:06 Range/Units Lactic Acid Level 3.9 1.1 1.2 0.4-2.0 mmol/L White Blood Count 13.35 4.8-10.8 K/uL Red Blood Count 3.63 4.7-6.1 M/uL Hemoglobin 11.5 14.0-18.0 g/dL Hematocrit 34.7 42-52 % Mean Corpuscular Volume 95.6 80-100 fL Mean Corpuscular Hemoglobin 31.7 25-34 pg Mean Corpuscular Hemoglobin Concent 33.1 32-36 g/dl Platelet Count 188 130-400 K/uL Mean Platelet Volume 9.5 7.4-10.4 fL Neutrophils (%) (Auto) 78.9 % Lymphocytes (%) (Auto) 9.9 % Monocytes (%) (Auto) 10.9 % Eosinophils (%) (Auto) 0.0 % Basophils (%) (Auto) 0.1 % Neutrophils # (Auto) 10.53 1.4-6.5 K/uL Lymphocytes # (Auto) 1.32 1.2-3.4 K/uL Monocytes # (Auto) 1.46 0.11-0.59 K/uL Eosinophils # (Auto) 0.00 0-0.5 K/uL Basophils # (Auto) 0.01 0-0.2 K/uL RDW Standard Deviation 51.0 36.4-46.3 fL RDW Coefficient of Variation 14.5 11.5-14.5 % Immature Granulocyte % (Auto) 0.2 % Immature Granulocyte # (Auto) 0.03 0.00-0.02 K/uL Sodium Level 139 136-145 mmol/L Potassium Level 3.4 3.5-5.1 mmol/L Chloride Level 106 98-107 mmol/L Carbon Dioxide Level 24 21-32 mmol/L Anion Gap 9.0 3-11 mmol/L Blood Urea Nitrogen 12 7-18 mg/dl Creatinine 0.65 0.60-1.40 mg/dl Est Creatinine Clear Calc Drug Dose 113.9 ml/min Estimated GFR () 116.7 Estimated GFR (Non- 100.7 BUN/Creatinine Ratio 18.8 10-20 Random Glucose 81 70-99 mg/dl Calcium Level 7.9 8.5-10.1 mg/dl Magnesium Level 2.1 1.8-2.4 mg/dl Microbiology Results 02/06/18 MRSA DNA Surveillance Screen - Final, Complete Specimen Negative for MRSA by DNA Probe Diagnostic Radiology (CHEST FOR PE) ANGIO WITH CT DOSE: 481.97 mGy.cm HISTORY: 67 years-old Male with . Presents with acutely altered mental status and shortness of breath. Reported right lower lobe collapse. TECHNIQUE: Multiple CTA images of the chest were obtained after the intravenous administration of 83 ml Optiray 320. Coronal and sagittal MIPS were obtained from the axial data set and were submitted for review. A dose lowering technique was utilized adhering to the principles of ALARA. COMPARISON: Chest radiograph of same day, CT chest 12/18/2011. FINDINGS: CTA: Mild multichamber cardiac enlargement. Coronary arterial calcifications are noted. Thoracic aorta is normal in both course and caliber without aneurysm or dissection. Moderate mixed plaque formation about the thoracic aorta. The imaged great vessels appear to be patent. The pulmonary arterial tree is opacified to level the subsegmental branches proximally. The segmental and subsegmental branches however are suboptimally evaluated secondary to respiratory motion. No focal filling defects identified to suggest pulmonary thromboembolic disease. CT CHEST: Homogeneous thyroid. Multiple nonenlarged lymph nodes about the prevascular space appear unchanged from comparison. Additionally, enlarged paratracheal lymph nodes measuring up to 11 mm in short axis are also noted which appear unchanged from comparison. Right hilar lymph nodes are seen measuring up to 10 mm. There is no pneumothorax. Right-sided bronchial wall thickening noted. Trace of bronchial secretions are noted with air-fluid level seen within the right mainstem bronchus and bronchus intermedius with opacified bronchi of the right lower lobe. Multifocal groundglass and consolidative opacities are seen throughout the right upper and lower lobes with collapse of the right middle lobe. Partial collapse of the right lower lobe. No definite obstructing endobronchial lesion identified. No acute process of the imaged upper abdomen. Bones appear intact. IMPRESSION: 1. No acute aortic pathology or evidence of pulmonary thromboembolic disease. 2. Tracheobronchial secretions with opacification of the right lower lobe bronchi and air fluid noted within the right mainstem bronchus and bronchus intermedius. There is resultant right middle lobe and partial right lower lobe collapse. No definite obstructing endobronchial mass lesion identified. Further evaluation with bronchoscopy recommended. 3. Multifocal consolidative and groundglass opacities throughout the right lung are suspicious for a combination of atelectasis with pneumonitis. 4. Prominent and enlarged mediastinal and hilar lymph nodes appear unchanged dating back to 12/18/2011. The above report was generated using voice recognition software. It may contain grammatical, syntax or spelling errors. Electronically signed by: Edu Odom M.D. 02/06/2018 2:48 PM HEAD WITHOUT CONTRAST (CT) CLINICAL HISTORY: 67 years-old Male with EVALUATE WEAKNESS. Acute weakness with dementia TECHNIQUE: Multiple axial CT images of the head were obtained without contrast. A dose lowering technique was utilized adhering to the principles of ALARA. CT DOSE: 537.48 mGy.cm COMPARISON: CT head 05/03/2006. FINDINGS: No acute intracranial hemorrhage, midline shift, intracranial mass, hydrocephalus, territorial ischemia or abnormal extra-axial collection. Atrophy with chronic microvascular ischemic changes redemonstrated. Cerebral vascular calcifications are noted. The calvarium is intact. Mastoid air cells and middle ear cavities are clear. Moderate mucoperiosteal thickening of the ethmoid air cells and right maxillary sinus with mild mucosal thickening of the left sphenoid sinus. 6 mm linear calcification about the superior right orbit redemonstrated. Soft tissues are within normal limits. IMPRESSION: No acute intracranial abnormality. The above report was generated using voice recognition software. It may contain grammatical, syntax or spelling errors. Electronically signed by: Edu Odom M.D. 02/06/2018 1:56 PM Impression Assessment and Plan Is a 67-year-old male that presented with altered mental status and had incidental finding of possible mucoid impaction or partial lung collapse of the right base on CT scan. We were asked to evaluate the patient for further treatment options and management. ABNORMAL CT OF CHEST * Patient with apparent mucoid impaction at the right main bronchus with the right lower takeoff * Will initiate aggressive pulmonary toilet with scheduled DuoNeb treatment followed by flutter valve. * Will also ask for manual percussion therapy while patient is positioned on his left side * In addition we will ask for pulmonary vest to try and mobilize secretions and mucus. * Patient will be kept n.p.o. after midnight tonight in the event the chest x- ray shows no clearance by tomorrow. ASPIRATION * Patient with witnessed aspiration at dinner tonight * Will change back to n.p.o. * Scheduled for bronchoscopy in the morning * Will contact Fermín who is the POA for consent * Repeat chest x-ray in the morning PAROXYSMAL ATRIAL FIBRILLATION * Patient managed with digoxin * No known long-term anticoagulation * Lovenox currently being administrated for DVT prophylaxis while inpatient DVT PROPHYLAXIS * Lovenox Thank you very much for including us in the care of this patient. Please refer to Dr. Syed's addendum for further recommendations Attending physician note: Patient seen and examined. Chart imaging studies reviewed. I agree with the above note by Jim Boyce PA-C. We will recheck chest x-ray in the morning and leave patient n.p.o. so that if there is no improvement in atelectasis we can perform bronchoscopy.
[2018-02-07] MEDS: ALBUT/IPRATROP 3MG/0.5MG NEB 3 ML VIAL INH SCH (19:16)
[2018-02-08] VITALS (10 sets, daily range): BP systolic 105–138; BP diastolic 62–72; PULSE 72–128; TEMP 36.7–37.7; O2SAT 90–100
[2018-02-08] MEDS: VANCOMYCIN IV 1,250 MG in SODIUM CHLORIDE 0.9% 250ML 250 ML IV SCH (01:48)
[2018-02-08] MEDS: PIPERACILL/TAZOBAC IV 3.375 GM in DEXTROSE 5% 100ML 100 ML IV SCH ×3 (03:48→21:37)
[2018-02-08] MEDS: METOPROLOL TARTRATE 1 MG/ML VIAL IV. SCH ×2 (05:19→10:04)
[2018-02-08] MEDS: ALBUT/IPRATROP 3MG/0.5MG NEB 3 ML VIAL INH SCH ×4 (07:00→19:42)
[2018-02-08] MEDS: VALPROATE SOD IV 500 MG in DEXTROSE 5% 50ML 50 ML IV SCH ×2 (07:46→21:37)
[2018-02-08] MEDS ORDERED: D5W AND 1/2NSS 1,000 ML IV SCH (08:30)
--- NOTE | 2018-02-08 08:40 | DIAGNOSTIC IMAGING REPORT ---
CHEST ONE VIEW PORTABLE CLINICAL HISTORY: 67 years-old Male presenting with Mucous impaction RLL vs collapse. TECHNIQUE: Portable upright AP view of the chest was obtained. COMPARISON: 02/06/2018. FINDINGS: Atherosclerosis of the aortic arch. Cardiac silhouette normal in size. Pulmonary vascular prominence and mild bronchial wall thickening. Improved aeration of the right lower lobe. Basilar predominant opacities greater on the right. Possible developing right mid to upper lung opacity. No large pleural effusion or pneumothorax. Osseous structures normal. Numerous external leads overlie the right upper quadrant. IMPRESSION: 1. Improved aeration of the right lower lobe though there is still some degree of bibasilar opacities greater on the right. 2. Right mid to upper lung infiltrate may be developing. Pneumonia not excluded. 3. Findings also suggest volume overload with congestive change. Electronically signed by: Glenroy Antonio M.D. 02/08/2018 8:39 AM Dictated Date/Time: 02/08/2018 7:40 Maryam
[2018-02-08] MEDS ORDERED: METOPROLOL TARTRATE 50 MG TAB PO STA (10:09)
[2018-02-08] MEDS ORDERED: METOPROLOL TARTRATE 1 MG/ML VIAL IV PRN (10:15)
[2018-02-08] MEDS: POTASSIUM CHLR 10 MEQ / WTR 100 ML IV SCH ×3 (10:21→16:09)
[2018-02-08] MEDS ORDERED: VANCOMYCIN TROUGH ONE (13:30)
[2018-02-08] MEDS: LEVOFLOXACIN / D5W 750 MG in PREMIXED IN D5W 150 ML IV SCH (16:03)
[2018-02-08] MEDS: DIGOXIN IV 125 MCG in SYRINGE 9.5 ML IV SCH (16:09)
--- NOTE | 2018-02-08 16:33 | Pulmonology Progress Note ---
Pulmonary Progress Note Date of Service Feb 08, 2018. Attending Dr. Syed Subjective Patient alert and oriented. Brother and POA present. CXR reviewed. RLL completly open. Patient denies cough or sputum production. Has been kept NPO for possible bronchoscopy. No fever or chills. No acute complaints. Oxygenating well on room air. Objective Vital Signs - as noted below Laboratory Data - as noted below Physical Exam: General - NAD Eyes - No icterus, gaze conjugate ENT - Mucosa moist, no lesions or candidiasis. Mucosa dry. No dentition Neck - Supple, No JVD Lungs - No bronchospasm, rales, or rhonchi. Slightly diminished at the right base Heart - Regular, rate controlled Abdomen - Soft, NT, ND, BS present Extremities - No edema, pedal pulses intact Neuro - A&OX3 Assessment & Plan ABNORMAL CT OF CHEST * Patient with apparent mucoid impaction at the right main bronchus with the right lower takeoff on admission * Aggressive pulmonary toilet with scheduled DuoNeb treatment followed by flutter valve and manual percussion. * CXR this morning with open RLL. * Continue pulmonary vest to mobilize secretions and mucus. ASPIRATION * Patient with witnessed aspiration * Continue n.p.o. pending [employer] evaluation * D/C bronchoscopy as patient is now clear on CXR and improved clinically PAROXYSMAL ATRIAL FIBRILLATION * Patient managed with digoxin * No known long-term anticoagulation * Lovenox currently being administrated for DVT prophylaxis while inpatient DVT PROPHYLAXIS * Lovenox held for possible bronch this morning. Ok to restart Thank you very much for including us in the care of this patient. We will sign off at this time. Attending physician addendum: Patient seen and examined, imaging studies reviewed. At this time mucoid impaction with resultant atelectasis has resolved and there is no need for bronchoscopy. I agree with the above impression and plan as written by Jim Boyce PA-C. Data Medications: Current Inpatient Medications Medications (Trade) Dose Ordered Sig/Gagandeep Route Start Time Stop Time Status Last Admin Dose Admin Ioversol (Optiray 320) 111 ml UD PRN IV 02/06/18 14:00 02/10/18 13:59 Piperacillin Sod/ Tazobactam Sod 3.375 gm/Dextrose 115 ml @ 28.75 mls/ hr Q8H IV 02/06/18 20:00 02/13/18 19:59 02/08/18 13:02 28.75 MLS/HR Miscellaneous Information (Consult) 1 ea UD PRN N/A 02/06/18 15:00 03/08/18 14:59 Levofloxacin 750 mg/Prmx 150 ml @ 100 mls/hr Q24H IV 02/07/18 16:00 02/13/18 15:59 02/08/18 16:03 100 MLS/HR Enoxaparin Sodium (Lovenox Inj) 40 mg Q24H SC 02/06/18 21:00 03/08/18 20:59 Future hold 02/06/18 20:32 40 MG Ondansetron HCl (Zofran Inj) 4 mg Q6H PRN IV 02/06/18 15:00 03/08/18 14:59 Valproate Sodium 500 mg/Dextrose 55 ml @ 55 mls/hr BID IV 02/06/18 21:00 03/08/18 20:59 02/08/18 07:46 55 MLS/HR Digoxin 125 mcg/ Syringe 10 ml @ 2 mls/min DAILY@16 IV 02/07/18 16:00 03/09/18 15:59 02/08/18 16:09 2 MLS/MIN Lorazepam 1 mg/ Syringe 1 ml @ 0.5 mls/min Q4 PRN IV 02/06/18 15:00 03/08/18 14:59 Albuterol/ Ipratropium (Duoneb) 3 ml Q4RWA INH 02/07/18 20:00 03/09/18 19:59 02/08/18 15:39 3 ML Dextrose/Sodium Chloride 1,000 ml @ 75 mls/hr [id number] IV 02/08/18 08:30 03/10/18 08:29 Metoprolol Tartrate (Lopressor Iv) 5 mg Q6H PRN IV 02/08/18 10:15 03/10/18 10:14 Metoprolol Tartrate (Lopressor Tab) 50 mg DAILY PO 02/09/18 09:00 03/11/18 08:59 I & O: 24-Hour Column 02/09/18 07:59 Intake Total 507 ml Balance 507 ml Vital Signs: Date Time Temp Pulse Resp B/P (MAP) Pulse Ox O2 Delivery O2 Flow Rate FiO2 02/08/18 16:09 96 02/08/18 15:55 36.8 128 20 120/66 (84) 94 Room Air 02/08/18 15:40 88 18 90 Room Air 02/08/18 11:49 36.9 75 16 117/66 (83) 95 Room Air 02/08/18 10:04 138 123/72 02/08/18 08:00 95 Room Air 02/08/18 07:21 36.7 88 20 123/72 (89) 96 Room Air 02/08/18 07:01 87 18 96 Room Air 02/08/18 05:19 85 125/66 02/08/18 03:50 37.7 90 19 105/62 (76) 95 Room Air 02/07/18 23:40 36.9 107 19 117/67 (84) 95 Room Air 02/07/18 23:27 112 167/67 02/07/18 23:15 Room Air 02/07/18 20:29 37.7 85 18 162/71 (101) 99 Room Air 02/07/18 20:00 80 18 97 Room Air 02/07/18 18:39 98 150/72 02/07/18 18:37 98 150/72 (98) Laboratory Results: Last 24 Hours Test 02/08/18 13:35 Bedside Glucose 96 mg/dl
--- NOTE | 2018-02-08 16:57 | PROGRESS NOTE ---
DATE: 02/08/2018 SUBJECTIVE: I am seeing Mr. Arriaga in followup of encephalopathy. Dr. Dillard saw him yesterday in consultation. I believe he is my outpatient and has parkinsonism. He is currently a resident at [facility], was transferred due to altered mental status and difficulty ambulating. He was difficult to arouse. When he was admitted by Dr. Barth, he had sonorous breath sounds, not waking to verbal or tactile stimulation but did grimace. Of note, he is said to be on Depakote. I do not know if this was being used for seizure, which I do not recall or mood stabilization. On admission, he was found to have a right basilar opacity and acute to subacute displaced left 9th rib fracture. An EEG was performed and was negative for focal seizure activity. OBJECTIVE: GENERAL: He is awake, alert, oriented to person only, 0/3 memory at 3 minutes. He does not know who the president is, month, or year, followed some simple commands without right/left confusion. VITAL SIGNS: 36.8, pulse 96, respiration 20, 120/66, 94%. NEUROLOGIC: The patient has no current resting tremor or cogwheel rigidity. There is fairly symmetric strength. He moves all 4 extremities symmetrically and minimal tremor on intention. ASSESSMENT: This patient likely was globally encephalopathic related to infection. I am not aware of the history of seizure that I recall, and it is entirely possible that he is on Depakote for mood stabilization. As he has been n.p.o., I agree with giving it intravenously. Patient clearly appears different than when I saw him last, I think it may be appropriate to do an MRI of the brain with and without contrast at some point when he is more cooperative, We will follow with you. ANNA
--- NOTE | 2018-02-08 17:34 | Progress Note ---
Internal Med Progress Note Date of Service: Feb 08, 2018. Provider Documentation: Subjective / Physical Exam Patient seen and examined today. Patient has history of dementia which is confirmed by patient's brother who was seen earlier at bedside. Patient continues to be awake and verbal but does not seem to have medical understanding of his currently situation. There is no significant changes in his mental status but neurology has recommended MRI brain to be done in case there are other etiologies for his behaviors Patient watching TV lying on the bed with his knees up When asked about pain or shortness of breath, patient denies Physical Exam General: as above, not in distress Heart rate: heart rate at time of exam appears regular, rythm appears regular but patient had atrial fibrillation today Lungs: no use of accessory muscles, good air inhalation and exhalation Abdomen: soft, nontender, bowel sounds present Extremities: no edema, no calf tenderness ASSESSMENT & PLAN: This is a 67 year old male with a past medical history of dementia, alcohol/ drug induced Parkinson's, hx. of seizure disorder, atrial fibrillation on digoxin, HTN, HLD - presents from [facility] due to altered mental status Altered Mental Status -As per ED documentation on 02/06/18 "The patient is a 67 year old male who presents to the Emergency Room with complaints of altered mental status. The patient was transported by EMS from [facility]. Per report, the patient has dementia at baseline. This morning he was unable to ambulate, when he normally is able to with a walker. They note patient also has mumbled speech at his baseline. They were concerned as patient was harder to arouse this morning, so they sent him in." -Head CT negative -was subsequently admitted and the mental status was attributed to possible Acute Metabolic Encephalopathy in the setting of Dementia Alcohol/Drug Induced Parkinson's due to pneumonia -started on Vancomycin and Zosyn for pneumonia coverage -patient was continued Valproic acid in IV form as same dose 500 mg BID, continue -Home medication of risperidal held to avoid sedation, continue to hold -Home medication of Carbidopa was held in case this was contributory -EEG on 02/07/18" This is an abnormal routine EEG secondary to mild background disorganization and slowing. There was no electrographic seizures or epileptiform discharges. This EEG indicates a mild encephalopathy of nonspecific etiology. Brief episodes of shaking of the arms and full body jerks seen on the video had no EEG correlation and are nonepileptic." -neurology: likely metabolic encephalopathy but also recommending Brain MRI History of Seizure Disorder? vs being on Depakote for mood stabilization Depakote IV EEG obtained On admission patient met SIRS criteria and given IV fluids with Vancomycin and Zosyn for pneumonia coverage Admission CTA "1. No acute aortic pathology or evidence of pulmonary thromboembolic disease. 2. Tracheobronchial secretions with opacification of the right lower lobe bronchi and air fluid noted within the right mainstem bronchus and bronchus intermedius. There is resultant right middle lobe and partial right lower lobe collapse. No definite obstructing endobronchial mass lesion identified. Further evaluation with bronchoscopy recommended. 3. Multifocal consolidative and groundglass opacities throughout the right lung are suspicious for a combination of atelectasis with pneumonitis. 4. Prominent and enlarged mediastinal and hilar lymph nodes appear unchanged dating back to 12/18/2011." -pulmonary service was asked to evaluate possibly with bronchoscopy for abnormal opacities and right lung collapse. however on 02/08/18, right lung cline appear to be improving on IV antibiotics alone -pulmonary recommendations * Patient with apparent mucoid impaction at the right main bronchus with the right lower takeoff on admission * Aggressive pulmonary toilet with scheduled DuoNeb treatment followed by flutter valve and manual percussion. * CXR this morning with open RLL. * Continue pulmonary vest to mobilize secretions and mucus. -Vancomycin stopped as no evidence for MRSA. Blood culture no growth to date. continuing antibiotics as Zosyn and Levofloxacin for now Sppech/swallow evalaution: 1. SLIPPERY Puree diet with thin liquids. Straws okay. 2. GERD Precautions: fully upright with PO, fully upright to at least 30 degrees at all times including sleep 3. Aspiration Precautions: small bites, small sips, slow rate, alternate between solids and liquids Paroxysmal A. Fib - continue digoxin - not on anticoagulation and was deemed not an anticoagulation candidate - given oral beta melissa to slow atrial fibrillation with RVR, continue IV pushes as needed DVT ppx - Lovenox FULL CODE Patient has in the chart a POLST form signed concurrently by his brother Fermín Kovacs called from [phone] and hospitalist discussed with him the current health of Mr. Arriaga. Fermín is the medical decision maker in case any permission needed for doing procedures Vital Signs: Date Time Temp Pulse Resp B/P (MAP) Pulse Ox O2 Delivery O2 Flow Rate FiO2 02/08/18 16:54 Room Air 02/08/18 16:09 96 02/08/18 15:55 36.8 128 20 120/66 (84) 94 Room Air 02/08/18 15:40 88 18 90 Room Air 02/08/18 11:49 36.9 75 16 117/66 (83) 95 Room Air 02/08/18 10:04 138 123/72 02/08/18 08:00 95 Room Air 02/08/18 07:21 36.7 88 20 123/72 (89) 96 Room Air 02/08/18 07:01 87 18 96 Room Air 02/08/18 05:19 85 125/66 02/08/18 03:50 37.7 90 19 105/62 (76) 95 Room Air 02/07/18 23:40 36.9 107 19 117/67 (84) 95 Room Air 02/07/18 23:27 112 167/67 02/07/18 23:15 Room Air 02/07/18 20:29 37.7 85 18 162/71 (101) 99 Room Air 02/07/18 20:00 80 18 97 Room Air 02/07/18 18:39 98 150/72 02/07/18 18:37 98 150/72 (98) Lab Results: Results Past 24 Hours Test 02/08/18 13:35 Range/Units Bedside Glucose 96 70-99 mg/dl
[2018-02-09] VITALS (9 sets, daily range): BP systolic 103–166; BP diastolic 54–71; PULSE 73–93; TEMP 36.8–37.4; O2SAT 90–100
[2018-02-09] MEDS: ALBUT/IPRATROP 3MG/0.5MG NEB 3 ML VIAL INH SCH ×4 (06:59→19:11)
[2018-02-09 07:17] LABS: BASO % 0.2 %; BASO ABS # 0.02 K/uL (0-0.2); HEMATOCRIT 34.3 % (42-52); HEMOGLOBIN 11.2 g/dL (14.0-18.0); IG# 0.03 K/uL (0.00-0.02); LYMPH % 16.7 %; MEAN CELL VOLUME 95.8 fL (80-100); MEAN CORPUSCULAR HEMOGLOBIN 31.3 pg (25-34); MEAN CORPUSCULAR HGB CONC 32.7 g/dl (32-36); MONO % 12.9 %; MONO ABS # 1.08 K/uL (0.11-0.59); NEUT % 69.8 %; NEUT ABS # 5.87 K/uL (1.4-6.5); PLATELET COUNT 205 K/uL (130-400); RED CELL DISTRIBUTION WIDTH CV 14.8 % (11.5-14.5); RED CELL DISTRIBUTION WIDTH SD 51.7 fL (36.4-46.3)
[2018-02-09] MEDS: PIPERACILL/TAZOBAC IV 3.375 GM in DEXTROSE 5% 100ML 100 ML IV SCH ×3 (07:53→20:07)
[2018-02-09 07:55] LABS: ALBUMIN 2.5 gm/dl (3.4-5.0); CALCIUM 8.3 mg/dl (8.5-10.1); CREATININE 0.75 mg/dl (0.60-1.40); POTASSIUM 3.3 mmol/L (3.5-5.1); TOTAL PROTEIN 6.5 gm/dl (6.4-8.2)
[2018-02-09] MEDS ORDERED: METOPROLOL TARTRATE 50 MG TAB PO SCH (09:00)
[2018-02-09] MEDS ORDERED: POTASSIUM CHLORIDE 20 MEQ TABCR PO STA (09:22)
--- NOTE | 2018-02-09 10:20 | PROGRESS NOTE ---
DATE: 02/09/2018 SUBJECTIVE: I am seeing Mr. Arriaga in followup of encephalopathy. I reviewed his medical record as an outpatient and he is not known to me. He is a former patient of Dr. Barrow who is said to have dementia related to alcohol use, has said to have had what Dr. Barrow described as withdrawal seizures and drug-induced parkinsonism versus Parkinson's disease. At some point in the past, the patient's Sinemet was discontinued and the patient was clearly worse and Sinemet was restarted. He was admitted to our hospital with encephalopathy, presumably related to infection. PHYSICAL EXAMINATION: GENERAL: On today's exam, he is awake and alert, oriented to self and place. VITAL SIGNS: 37.4, 87, 20, 124/63, 98% on room air. There is a mild decrease in blink frequency. He is not overtly bradykinetic. There is some resting tremor and some tremor with intention. IMPRESSION: 1. At baseline, this patient is said to have an alcohol-induced related dementia and has been a resident of a snf for 7 years. He became encephalopathic, likely related to a pneumonic process. I do not think he needs further MRI testing unless upon return to the snf, the staff or family thinks he is off his baseline. 2. History of seizures. Continue Depakote. It may be contributing some tremor. 3. Drug-induced parkinsonism. I am assuming based on Dr. Barrow's prior experience that the patient does have some limiting parkinsonian signs off of Sinemet. Once he is taking by mouth, you may want to resume Sinemet added to prior dose. We will sign off at present. [facility]
[2018-02-09] MEDS ORDERED: GADAVIST IV PRN (11:45)
--- NOTE | 2018-02-09 11:45 | DIAGNOSTIC IMAGING REPORT ---
MRI OF THE BRAIN WITHOUT AND WITH IV CONTRAST CLINICAL HISTORY: altered mental status COMPARISON STUDY: Noncontrast head CT dated 02/06/2018 TECHNIQUE: MRI of the brain was performed from the vertex to the skull base utilizing various T1 and T2 weighted sequences. Following the IV administration of 7 mL of Gadavist contrast, additional enhanced images were obtained. FINDINGS: Sagittal T1, axial diffusion, proton density and T2 weighted axial, coronal FLAIR, and pre and post axial T1-weighted images were acquired. These were supplemented with post gadolinium coronal T1 weighted images. No intra or extra-axial mass lesions are visualized. Axial diffusion-weighted images reveal no evidence of acute or subacute infarction. There is no evidence of ventricular dilatation. Proton density T2-weighted and FLAIR images reveal scattered foci of increased T2 signal within the white matter, likely on a small vessel basis. There are no abnormal flow voids. There is no evidence of pathologic enhancement. IMPRESSION: 1. No acute intracranial findings 2. No evidence of intracranial mass 3. No evidence of acute or subacute infarction Electronically signed by: Yrn Dixon M.D. 02/09/2018 11:43 AM Dictated Date/Time: 02/09/2018 11:42 AM
[2018-02-09] MEDS: VALPROATE SOD IV 500 MG in DEXTROSE 5% 50ML 50 ML IV SCH (11:47)
--- NOTE | 2018-02-09 14:10 | Progress Note ---
Internal Med Progress Note Date of Service: Feb 09, 2018. Provider Documentation: Subjective / Physical Exam Patient seen and examined and continues to be breathing on room air. Denies shortness of breath. Denies chest pain. Reports back pain that is generalized but nonfocal exam and no acute distress. Verbal but appears to lack understanding of medical health. Physical Exam General: as above, not in distress Heart rate: returned to sinus rhythm today rate controlled Lungs: no use of accessory muscles, good air inhalation and exhalation, some diminished breath sounds noted in right mid lung cline. on room air Abdomen: soft, nontender, bowel sounds present Extremities: no edema, no calf tenderness ASSESSMENT & PLAN: This is a 67 year old male with a past medical history of dementia, alcohol/ drug induced Parkinson's, hx. of seizure disorder, atrial fibrillation on digoxin, HTN, HLD - presents from [facility] due to altered mental status Altered Mental Status -As per ED documentation on 02/06/18 "The patient is a 67 year old male who presents to the Emergency Room with complaints of altered mental status. The patient was transported by EMS from [facility]. Per report, the patient has dementia at baseline. This morning he was unable to ambulate, when he normally is able to with a walker. They note patient also has mumbled speech at his baseline. They were concerned as patient was harder to arouse this morning, so they sent him in." -Head CT negative -was subsequently admitted and the mental status was attributed to possible Acute Metabolic Encephalopathy in the setting of Dementia Alcohol/Drug Induced Parkinson's due to pneumonia -started on Vancomycin and Zosyn for pneumonia coverage -patient was continued Valproic acid in IV form as same dose 500 mg BID, continue -Home medication of risperidal was held to avoid sedation, continue to hold -Home medication of Carbidopa was held in case this was contributory -EEG on 02/07/18" This is an abnormal routine EEG secondary to mild background disorganization and slowing. There was no electrographic seizures or epileptiform discharges. This EEG indicates a mild encephalopathy of nonspecific etiology. Brief episodes of shaking of the arms and full body jerks seen on the video had no EEG correlation and are nonepileptic." -inpatient neurology service : likely metabolic encephalopathy but also recommended Brain MRI which is normal -reviewed outpatient 12/[address] Barrow, and in summary that Patient has been on Carbidopa and Risperidal for years and that Carbidopa and Risperidal should be continued in combination to treat Parkinson's with tardive dyskinesia symptoms and it is unclear whether the Depakote is for Seizure prophylaxis vs for mood disorder -02/09/18 inpatient neurology advises continuing Depakote and carbidopa; will therefor also resume Risperdal On admission patient met SIRS criteria and given IV fluids with Vancomycin and Zosyn for pneumonia coverage Admission CTA "1. No acute aortic pathology or evidence of pulmonary thromboembolic disease. 2. Tracheobronchial secretions with opacification of the right lower lobe bronchi and air fluid noted within the right mainstem bronchus and bronchus intermedius. There is resultant right middle lobe and partial right lower lobe collapse. No definite obstructing endobronchial mass lesion identified. Further evaluation with bronchoscopy recommended. 3. Multifocal consolidative and groundglass opacities throughout the right lung are suspicious for a combination of atelectasis with pneumonitis. 4. Prominent and enlarged mediastinal and hilar lymph nodes appear unchanged dating back to 12/18/2011." -pulmonary service was asked to evaluate possibly with bronchoscopy for abnormal opacities and right lung collapse. however on 02/08/18, right lung cline appear to be improving on IV antibiotics alone -recent pulmonary recommendations * Patient with apparent mucoid impaction at the right main bronchus with the right lower takeoff on admission * Aggressive pulmonary toilet with scheduled DuoNeb treatment followed by flutter valve and manual percussion. * CXR this morning with open RLL. * Continue pulmonary vest to mobilize secretions and mucus. -Vancomycin was stopped on 02/08/18as no evidence for MRSA. Blood culture no growth to date. continuing antibiotics as Zosyn and Levofloxacin for now -will plan repeat chest X ray tomorrow and if there are further improvements then can consider antibiotic de-escalation Sppech/swallow evalaution: 1. SLIPPERY Puree diet with thin liquids. Straws okay. 2. GERD Precautions: fully upright with PO, fully upright to at least 30 degrees at all times including sleep 3. Aspiration Precautions: small bites, small sips, slow rate, alternate between solids and liquids Paroxysmal A. Fib - continue digoxin - not on anticoagulation and was deemed not an anticoagulation candidate - given oral beta melissa to slow atrial fibrillation with RVR, continue IV pushes as needed -resume atorvastatin DVT ppx - Lovenox FULL CODE Patient has in the chart a POLST form signed concurrently by his brother Fermín [phone]. Fermín helps patient make medical decisions Disposition: Remains in the hospital today, transitioning more medications to oral forms, monitor for aspiration, continue IV antibiotics, check CXR tomorrow to see if further improvements in pneumonia Vital Signs: Date Time Temp Pulse Resp B/P (MAP) Pulse Ox O2 Delivery O2 Flow Rate FiO2 02/09/18 11:52 37.3 93 18 103/64 (77) 99 Room Air 02/09/18 08:00 Room Air 02/09/18 07:47 37.4 87 20 124/63 (83) 98 Room Air 02/09/18 06:59 81 18 97 Room Air 02/09/18 03:24 37.2 93 21 166/54 (91) 94 Room Air 02/08/18 23:16 37.2 92 21 138/71 (93) 98 Room Air 02/08/18 20:00 Room Air 02/08/18 19:42 72 18 96 Room Air 02/08/18 19:03 36.9 72 18 119/66 (83) 100 Room Air 02/08/18 16:54 Room Air 02/08/18 16:09 96 02/08/18 15:55 36.8 128 20 120/66 (84) 94 Room Air 02/08/18 15:40 88 18 90 Room Air Lab Results: Results Past 24 Hours Test 02/08/18 19:01 02/09/18 00:08 02/09/18 06:04 02/09/18 07:22 Range/Units Bedside Glucose 123 98 120 70-99 mg/dl White Blood Count 8.40 4.8-10.8 K/uL Red Blood Count 3.58 4.7-6.1 M/uL Hemoglobin 11.2 14.0-18.0 g/dL Hematocrit 34.3 42-52 % Mean Corpuscular Volume 95.8 80-100 fL Mean Corpuscular Hemoglobin 31.3 25-34 pg Mean Corpuscular Hemoglobin Concent 32.7 32-36 g/dl Platelet Count 205 130-400 K/uL Mean Platelet Volume 10.0 7.4-10.4 fL Neutrophils (%) (Auto) 69.8 % Lymphocytes (%) (Auto) 16.7 % Monocytes (%) (Auto) 12.9 % Eosinophils (%) (Auto) 0.0 % Basophils (%) (Auto) 0.2 % Neutrophils # (Auto) 5.87 1.4-6.5 K/uL Lymphocytes # (Auto) 1.40 1.2-3.4 K/uL Monocytes # (Auto) 1.08 0.11-0.59 K/uL Eosinophils # (Auto) 0.00 0-0.5 K/uL Basophils # (Auto) 0.02 0-0.2 K/uL RDW Standard Deviation 51.7 36.4-46.3 fL RDW Coefficient of Variation 14.8 11.5-14.5 % Immature Granulocyte % (Auto) 0.4 % Immature Granulocyte # (Auto) 0.03 0.00-0.02 K/uL Sodium Level 144 136-145 mmol/L Potassium Level 3.3 3.5-5.1 mmol/L Chloride Level 108 98-107 mmol/L Carbon Dioxide Level 26 21-32 mmol/L Anion Gap 10.0 3-11 mmol/L Blood Urea Nitrogen 22 7-18 mg/dl Creatinine 0.75 0.60-1.40 mg/dl Est Creatinine Clear Calc Drug Dose 98.7 ml/min Estimated GFR () 110.0 Estimated GFR (Non- 94.9 BUN/Creatinine Ratio 28.9 10-20 Random Glucose 96 70-99 mg/dl Calcium Level 8.3 8.5-10.1 mg/dl Total Bilirubin 0.5 0.2-1 mg/dl Aspartate Amino Transf (AST/SGOT) 25 15-37 U/L Alanine Aminotransferase (ALT/SGPT) 28 12-78 U/L Alkaline Phosphatase 114 45-117 U/L Total Protein 6.5 6.4-8.2 gm/dl Albumin 2.5 3.4-5.0 gm/dl Globulin 4.0 2.5-4.0 gm/dl Albumin/Globulin Ratio 0.6 0.9-2
[2018-02-09] MEDS: DIGOXIN 0.125 MG TAB PO SCH (18:26)
[2018-02-09] MEDS: LEVOFLOXACIN / D5W 750 MG in PREMIXED IN D5W 150 ML IV SCH (18:26)
[2018-02-09] MEDS: CARBIDOPA/LEVODOPA 25-250 1 EA TAB PO SCH ×2 (19:11→20:22)
[2018-02-09] MEDS: ENOXAPARIN 40 MG/0.4 ML SYR SC SCH (20:23)
[2018-02-09] MEDS: RISPERIDONE 0.5 MG TAB PO SCH (21:05)
[2018-02-09] MEDS: DIVALPROEX SODIUM 500 MG DELAY RELEASE TAB PO SCH (21:05)
[2018-02-10] VITALS (10 sets, daily range): BP systolic 111–143; BP diastolic 63–94; PULSE 70–84; TEMP 36.3–37.1; O2SAT 93–98; Ht 177.8 cm; Wt 74.5 kg
[2018-02-10] MEDS: CARBIDOPA/LEVODOPA 25-250 1 EA TAB PO SCH ×7 (00:35→23:33)
[2018-02-10] MEDS: PIPERACILL/TAZOBAC IV 3.375 GM in DEXTROSE 5% 100ML 100 ML IV SCH (04:04)
[2018-02-10 06:48] LABS: ALBUMIN 2.3 gm/dl (3.4-5.0); CALCIUM 7.8 mg/dl (8.5-10.1); CREATININE 0.65 mg/dl (0.60-1.40); POTASSIUM 3.1 mmol/L (3.5-5.1)
[2018-02-10] MEDS: ALBUT/IPRATROP 3MG/0.5MG NEB 3 ML VIAL INH SCH ×4 (07:06→19:45)
[2018-02-10] MEDS ORDERED: POTASSIUM CHLORIDE 20 MEQ TABCR PO STA (07:19)
--- NOTE | 2018-02-10 09:06 | DIAGNOSTIC IMAGING REPORT ---
CHEST 2 VIEWS ROUTINE HISTORY: 67 years-old Male follow up lung infiltrate follow-up study in a patient with right lung opacities. Acute shortness of breath COMPARISON: Chest radiograph 02/08/2018, CTA chest 02/06/2018 TECHNIQUE: AP and lateral views of the chest FINDINGS: Cardiac silhouette is upper limits of normal in size. Calcification of the aorta. Lungs are mildly hyperinflated. Pulmonary vascular congestion with development of mild pulmonary edema. Small bilateral pleural effusions without pneumothorax. Linear subsegmental opacity about the right perihilar lung suggests atelectasis. Bibasilar alveolar opacities. Ill-defined opacities about the right midlung are unchanged. Remote fracture of the posterior lateral left eighth rib. Degenerative changes of the shoulders and spine. IMPRESSION: 1. Interval development of mild pulmonary edema with small bilateral pleural effusions. 2. Bibasilar opacities suggest atelectasis or pneumonitis. The above report was generated using voice recognition software. It may contain grammatical, syntax or spelling errors. Electronically signed by: Edu Odom M.D. 02/10/2018 9:04 AM Dictated Date/Time: 02/10/2018 9:01 AM
[2018-02-10] MEDS: METOPROLOL TARTRATE 25 MG TAB PO SCH (09:47)
[2018-02-10] MEDS: ATORVASTATIN 20 MG TAB PO SCH (09:47)
[2018-02-10] MEDS: DIVALPROEX SODIUM 500 MG DELAY RELEASE TAB PO SCH ×2 (09:47→19:18)
[2018-02-10] MEDS ORDERED: FUROSEMIDE INJ 20 MG in SYRINGE 0 ML IV ONE (10:30)
--- NOTE | 2018-02-10 12:12 | Progress Note ---
Internal Med Progress Note Date of Service: Feb 10, 2018. Provider Documentation: Subjective / Physical Exam Patient seen and examined and continues to be breathing on room air. Denies shortness of breath. Denies chest pain. Physical Exam General: as above, not in distress Heart rate: sinus rhythm, rate controlled Lungs: no use of accessory muscles, good air inhalation and exhalation, some diminished breath sounds noted in right mid lung cline. on room air Abdomen: soft, nontender, bowel sounds present Extremities: no edema, no calf tenderness ASSESSMENT & PLAN: This is a 67 year old male with a past medical history of dementia, alcohol/ drug induced Parkinson's, hx. of seizure disorder, atrial fibrillation on digoxin, HTN, HLD - presents from [facility] due to altered mental status Altered Mental Status -As per ED documentation on 02/06/18 "The patient is a 67 year old male who presents to the Emergency Room with complaints of altered mental status. The patient was transported by EMS from [facility]. Per report, the patient has dementia at baseline. This morning he was unable to ambulate, when he normally is able to with a walker. They note patient also has mumbled speech at his baseline. They were concerned as patient was harder to arouse this morning, so they sent him in." -Head CT negative -was subsequently admitted and the mental status was attributed to possible Acute Metabolic Encephalopathy in the setting of Dementia Alcohol/Drug Induced Parkinson's due to pneumonia -started on Vancomycin and Zosyn for pneumonia coverage -patient was continued Valproic acid in IV form as same dose 500 mg BID, continue -Home medication of risperidal was held to avoid sedation, continue to hold -Home medication of Carbidopa was held in case this was contributory -EEG on 02/07/18" This is an abnormal routine EEG secondary to mild background disorganization and slowing. There was no electrographic seizures or epileptiform discharges. This EEG indicates a mild encephalopathy of nonspecific etiology. Brief episodes of shaking of the arms and full body jerks seen on the video had no EEG correlation and are nonepileptic." -inpatient neurology service : likely metabolic encephalopathy but also recommended Brain MRI which is normal -reviewed outpatient 12/[address] Barrow, and in summary that Patient has been on Carbidopa and Risperidal for years and that Carbidopa and Risperidal should be continued in combination to treat Parkinson's with tardive dyskinesia symptoms and it is unclear whether the Depakote is for Seizure prophylaxis vs for mood disorder -02/09/18 inpatient neurology advises continuing Depakote and carbidopa; will therefor also resume Risperdal -02/10/18 currently oral medications for neuro/psych issues as above On admission patient met SIRS criteria and given IV fluids with Vancomycin and Zosyn for pneumonia coverage 02/06/18 Admission CTA "1. No acute aortic pathology or evidence of pulmonary thromboembolic disease. 2. Tracheobronchial secretions with opacification of the right lower lobe bronchi and air fluid noted within the right mainstem bronchus and bronchus intermedius. There is resultant right middle lobe and partial right lower lobe collapse. No definite obstructing endobronchial mass lesion identified. Further evaluation with bronchoscopy recommended. 3. Multifocal consolidative and groundglass opacities throughout the right lung are suspicious for a combination of atelectasis with pneumonitis. 4. Prominent and enlarged mediastinal and hilar lymph nodes appear unchanged dating back to 12/18/2011." -pulmonary service was asked to evaluate possibly with bronchoscopy for abnormal opacities and right lung collapse. however on 02/08/18, right lung cline appear to be improving on IV antibiotics alone; pulmonary recommendations of pulmonary toilet; scheduled DuoNeb treatment followed by flutter valve and manual percussion, pulmonary vest -Vancomycin was stopped on 02/08/18 as no evidence for MRSA. Blood culture no growth to date. and was continued on IV Zosyn and IV Levofloxacin (started on ) -antibiotic de-escalation to oral Levofloxacin as chest X ray on 02/10/18 with i nterval development of mild pulmonary edema with small bilateral pleural effusions likely from IV medications -Lasix 20 mg IV given for the mild pulmonary edema, consider additional diuresis before discharge Speech/swallow evaluation: 1. SLIPPERY Puree diet with thin liquids. Straws okay. 2. GERD Precautions: fully upright with PO, fully upright to at least 30 degrees at all times including sleep 3. Aspiration Precautions: small bites, small sips, slow rate, alternate between solids and liquids Paroxysmal A. Fib - continue digoxin - not on anticoagulation and was deemed not an anticoagulation candidate - given oral beta melissa to slow atrial fibrillation with RVR, continue IV pushes as needed -atorvastatin Hypokalemia -given potassium supplements, follow up on tomorrow labs DVT ppx - Lovenox FULL CODE Patient has in the chart a POLST form signed concurrently by his brother Fermín [phone]. Fermín helps patient make medical decisions Disposition: Remains in the hospital today, transitioning more medications to oral forms, monitor for aspiration, continue IV antibiotics, check CXR tomorrow to see if further improvements in pneumonia Disposition: remains in the hospital while transitioned to oral antibiotic, mild pulmonary edema from previous IV infusions, given IV Lasix, consider further diuresis Vital Signs: Date Time Temp Pulse Resp B/P (MAP) Pulse Ox O2 Delivery O2 Flow Rate FiO2 02/10/18 11:51 37.1 78 18 123/70 (87) 98 Room Air 02/10/18 11:09 71 18 98 Room Air 02/10/18 08:00 Room Air 02/10/18 07:07 70 18 98 Room Air 02/10/18 06:59 36.6 73 19 111/64 (80) 93 Room Air 02/10/18 04:23 36.9 75 17 137/63 (87) 98 Room Air 02/09/18 23:22 36.8 78 20 117/61 (79) 97 Room Air 02/09/18 20:00 Room Air 02/09/18 19:11 87 18 98 Room Air 02/09/18 18:57 36.9 90 17 125/67 (86) 90 Room Air 02/09/18 18:26 78 02/09/18 15:24 80 18 96 Room Air 02/09/18 15:19 37.0 73 16 128/71 (90) 100 Room Air Lab Results: Results Past 24 Hours Test 02/09/18 16:26 02/09/18 20:19 02/10/18 05:41 Range/Units Bedside Glucose 81 111 70-99 mg/dl Sodium Level 145 136-145 mmol/L Potassium Level 3.1 3.5-5.1 mmol/L Chloride Level 111 98-107 mmol/L Carbon Dioxide Level 25 21-32 mmol/L Anion Gap 9.0 3-11 mmol/L Blood Urea Nitrogen 17 7-18 mg/dl Creatinine 0.65 0.60-1.40 mg/dl Est Creatinine Clear Calc Drug Dose 113.9 ml/min Estimated GFR () 116.7 Estimated GFR (Non- 100.7 BUN/Creatinine Ratio 25.4 10-20 Random Glucose 95 70-99 mg/dl Calcium Level 7.8 8.5-10.1 mg/dl Total Bilirubin 0.5 0.2-1 mg/dl Aspartate Amino Transf (AST/SGOT) 21 15-37 U/L Alanine Aminotransferase (ALT/SGPT) 8 12-78 U/L Alkaline Phosphatase 101 45-117 U/L Total Protein 6.0 6.4-8.2 gm/dl Albumin 2.3 3.4-5.0 gm/dl Globulin 3.7 2.5-4.0 gm/dl Albumin/Globulin Ratio 0.6 0.9-2
[2018-02-10] MEDS: RISPERIDONE 0.5 MG TAB PO SCH ×2 (12:28→19:18)
[2018-02-10] MEDS: ACETAMINOPHEN 325 MG TAB PO PRN ×2 (13:29→19:17)
[2018-02-10] MEDS: LEVOFLOXACIN 750 MG TAB PO SCH (13:30)
[2018-02-10] MEDS: DIGOXIN 0.125 MG TAB PO SCH (17:16)
[2018-02-10] MEDS: FUROSEMIDE INJ 20 MG in SYRINGE 0 ML IV SCH (17:16)
[2018-02-10] MEDS: ENOXAPARIN 40 MG/0.4 ML SYR SC SCH (19:19)
[2018-02-11] VITALS (7 sets, daily range): BP systolic 128–152; BP diastolic 72–78; PULSE 74–81; TEMP 36.9–37.5; O2SAT 97–100
[2018-02-11] MEDS: CARBIDOPA/LEVODOPA 25-250 1 EA TAB PO SCH ×3 (04:33→12:03)
[2018-02-11 06:49] LABS: ALBUMIN 2.9 gm/dl (3.4-5.0); CALCIUM 8.8 mg/dl (8.5-10.1); CREATININE 0.76 mg/dl (0.60-1.40); POTASSIUM 3.4 mmol/L (3.5-5.1); TOTAL PROTEIN 7.5 gm/dl (6.4-8.2)
[2018-02-11] MEDS: ALBUT/IPRATROP 3MG/0.5MG NEB 3 ML VIAL INH SCH ×2 (07:07→11:17)
[2018-02-11] MEDS: METOPROLOL TARTRATE 25 MG TAB PO SCH (07:57)
[2018-02-11] MEDS: FUROSEMIDE INJ 20 MG in SYRINGE 0 ML IV SCH (07:57)
[2018-02-11] MEDS: LEVOFLOXACIN 750 MG TAB PO SCH ×2 (07:58→13:12)
[2018-02-11] MEDS: ATORVASTATIN 20 MG TAB PO SCH (07:58)
[2018-02-11] MEDS: DIVALPROEX SODIUM 500 MG DELAY RELEASE TAB PO SCH (07:58)
[2018-02-11] MEDS: RISPERIDONE 0.5 MG TAB PO SCH (08:00)
[2018-02-11] MEDS ORDERED: POTASSIUM CHLORIDE 20 MEQ TABCR PO STA (09:30)
[2018-02-11] MEDS ORDERED: MAGNESIUM SULFATE 1GM / D5W 100 ML IV STA (09:30)
[2018-02-11] MEDS ORDERED: MAGNESIUM OXIDE 400 MG TAB PO STA (09:31)
--- NOTE | 2018-02-11 10:13 | DIAGNOSTIC IMAGING REPORT ---
CHEST 2 VIEWS ROUTINE HISTORY: follow up infiltrates COMPARISON: Chest 02/10/2018. FINDINGS: Trace bilateral pleural effusions and bibasilar densities have improved. Mild pulmonary vascular congestion has also improved. Right midlung zone scarlike density remains stable. The heart is normal in size. No pneumothorax. IMPRESSION: Interval improvement in the pulmonary vascular congestion, trace bilateral pleural effusions, and bibasilar densities. Electronically signed by: Kulwant Minor M.D. 02/11/2018 10:11 AM Dictated Date/Time: 02/11/2018 10:10 AM
[2018-02-11] MEDS ORDERED: LVQ750 PO (12:10)
--- NOTE | 2018-02-11 12:23 | Progress Note ---
Internal Med Progress Note Date of Service: Feb 11, 2018. Provider Documentation: Subjective / Physical Exam Patient seen and examined and continues to be breathing on room air. Denies shortness of breath. Denies chest pain. Physical Exam General: as above, not in distress Heart rate: sinus rhythm, rate controlled Lungs: no use of accessory muscles, good air inhalation and exhalation Abdomen: soft, nontender, bowel sounds present Extremities: no edema, no calf tenderness ASSESSMENT & PLAN: Hospital Course and Discharge Plans This is a 67 year old male with a past medical history of dementia, alcohol/ drug induced Parkinson's, hx. of seizure disorder, atrial fibrillation on digoxin, HTN, HLD - presents from [facility] due to altered mental status Altered Mental Status -As per ED documentation on 02/06/18 "The patient is a 67 year old male who presents to the Emergency Room with complaints of altered mental status. The patient was transported by EMS from [facility]. Per report, the patient has dementia at baseline. This morning he was unable to ambulate, when he normally is able to with a walker. They note patient also has mumbled speech at his baseline. They were concerned as patient was harder to arouse this morning, so they sent him in." -Head CT negative -was subsequently admitted and the mental status was attributed to possible Acute Metabolic Encephalopathy in the setting of Dementia Alcohol/Drug Induced Parkinson's due to pneumonia -started on Vancomycin and Zosyn for pneumonia coverage -patient was continued Valproic acid in IV form as same dose 500 mg BID, continue -Home medication of risperidal was held to avoid sedation, continue to hold -Home medication of Carbidopa was held in case this was contributory -EEG on 02/07/18" This is an abnormal routine EEG secondary to mild background disorganization and slowing. There was no electrographic seizures or epileptiform discharges. This EEG indicates a mild encephalopathy of nonspecific etiology. Brief episodes of shaking of the arms and full body jerks seen on the video had no EEG correlation and are nonepileptic." -inpatient neurology service : likely metabolic encephalopathy but also recommended Brain MRI which is normal -reviewed outpatient 12/[address] Barrow, and in summary that Patient has been on Carbidopa and Risperidal for years and that Carbidopa and Risperidal should be continued in combination to treat Parkinson's with tardive dyskinesia symptoms and it is unclear whether the Depakote is for Seizure prophylaxis vs for mood disorder -02/09/18 inpatient neurology advises continuing Depakote and carbidopa; will therefor also resume Risperdal -02/10/18 currently oral medications for neuro/psych issues as above On admission patient met SIRS criteria and given IV fluids with Vancomycin and Zosyn for pneumonia coverage 02/06/18 Admission CTA "1. No acute aortic pathology or evidence of pulmonary thromboembolic disease. 2. Tracheobronchial secretions with opacification of the right lower lobe bronchi and air fluid noted within the right mainstem bronchus and bronchus intermedius. There is resultant right middle lobe and partial right lower lobe collapse. No definite obstructing endobronchial mass lesion identified. Further evaluation with bronchoscopy recommended. 3. Multifocal consolidative and groundglass opacities throughout the right lung are suspicious for a combination of atelectasis with pneumonitis. 4. Prominent and enlarged mediastinal and hilar lymph nodes appear unchanged dating back to 12/18/2011." -pulmonary service was asked to evaluate possibly with bronchoscopy for abnormal opacities and right lung collapse. however on 02/08/18, right lung cline appear to be improving on IV antibiotics alone; pulmonary recommendations of pulmonary toilet; scheduled DuoNeb treatment followed by flutter valve and manual percussion, pulmonary vest -Vancomycin was stopped on 02/08/18 as no evidence for MRSA. Blood culture no growth to date. and was continued on IV Zosyn and IV Levofloxacin (started on ) -antibiotic de-escalation to oral Levofloxacin as chest X ray on 02/10/18 with i nterrval development of mild pulmonary edema with small bilateral pleural effusions likely from IV medications -Lasix 20 mg IV given for the mild pulmonary edema, -Chest X ray 02/11/18 Interval improvement in the pulmonary vascular congestion, trace bilateral pleural effusions, and bibasilar densities Speech/swallow evaluation: 1. SLIPPERY Puree diet with thin liquids. Straws okay. 2. GERD Precautions: fully upright with PO, fully upright to at least 30 degrees at all times including sleep 3. Aspiration Precautions: small bites, small sips, slow rate, alternate between solids and liquids Paroxysmal A. Fib - continue digoxin - not on anticoagulation and was deemed not an anticoagulation candidate - given oral beta melissa to slow atrial fibrillation with RVR, continue IV pushes as needed -atorvastatin Mild Hypokalemia and Hypomagnesemia -received supplements during this hospital stay Patient has in the chart a POLST form signed concurrently by his brother Fermín [phone]. Fermín helps patient make medical decisions Discharge Instructions Patient to be discharged with Levofloxacin. Patient should be seen by primary care doctor within 1 week of discharge Vital Signs: Date Time Temp Pulse Resp B/P (MAP) Pulse Ox O2 Delivery O2 Flow Rate FiO2 02/11/18 12:38 37.0 75 18 97 Room Air 02/11/18 11:19 75 18 97 Room Air 02/11/18 10:05 37.0 75 18 152/72 (98) 100 Room Air 02/11/18 09:11 37.5 81 24 100 02/11/18 08:06 37.5 81 24 146/78 (100) 100 Room Air 02/11/18 08:00 Room Air 02/11/18 07:07 81 18 100 Room Air 02/11/18 03:25 36.9 74 18 128/77 (94) 99 Room Air 02/10/18 23:20 37.0 81 17 123/69 (87) 95 Room Air 02/10/18 20:00 Room Air 02/10/18 19:45 74 18 Room Air 02/10/18 19:00 36.3 84 18 143/94 (110) 98 Room Air 02/10/18 17:16 81 02/10/18 15:51 71 18 96 Room Air 02/10/18 15:37 36.7 73 17 114/71 (85) 98 Nasal Cannula Lab Results: Results Past 24 Hours Test 02/11/18 05:53 Range/Units Sodium Level 144 136-145 mmol/L Potassium Level 3.4 3.5-5.1 mmol/L Chloride Level 107 98-107 mmol/L Carbon Dioxide Level 27 21-32 mmol/L Anion Gap 10.0 3-11 mmol/L Blood Urea Nitrogen 15 7-18 mg/dl Creatinine 0.76 0.60-1.40 mg/dl Est Creatinine Clear Calc Drug Dose 97.4 ml/min Estimated GFR () 109.4 Estimated GFR (Non- 94.4 BUN/Creatinine Ratio 20.1 10-20 Random Glucose 78 70-99 mg/dl Calcium Level 8.8 8.5-10.1 mg/dl Magnesium Level 1.8 1.8-2.4 mg/dl Total Bilirubin 0.5 0.2-1 mg/dl Aspartate Amino Transf (AST/SGOT) 18 15-37 U/L Alanine Aminotransferase (ALT/SGPT) 12 12-78 U/L Alkaline Phosphatase 123 45-117 U/L Total Protein 7.5 6.4-8.2 gm/dl Albumin 2.9 3.4-5.0 gm/dl Globulin 4.6 2.5-4.0 gm/dl Albumin/Globulin Ratio 0.6 0.9-2
[2018-02-11] MEDS: ACETAMINOPHEN 325 MG TAB PO PRN (12:50)
--- NOTE | 2018-02-11 13:29 | Discharge Instructions ---
Discharge Instructions Date of Service Feb 11, 2018. Admission Reason for Admission: Altered Mental Status,Lung Collapse Discharge Discharge Diagnosis / Problem: altered mental status, pneumonia Discharge Goals Goal(s): Improve disease control Activity Recommendations Activity Limitations: per Instructions/Follow-up section . Instructions / Follow-Up Instructions / Follow-Up Hospital Course and Discharge Plans This is a 67 year old male with a past medical history of dementia, alcohol/ drug induced Parkinson's, hx. of seizure disorder, atrial fibrillation on digoxin, HTN, HLD - presents from [facility] due to altered mental status Altered Mental Status -As per ED documentation on 02/06/18 "The patient is a 67 year old male who presents to the Emergency Room with complaints of altered mental status. The patient was transported by EMS from [facility]. Per report, the patient has dementia at baseline. This morning he was unable to ambulate, when he normally is able to with a walker. They note patient also has mumbled speech at his baseline. They were concerned as patient was harder to arouse this morning, so they sent him in." -Head CT negative -was subsequently admitted and the mental status was attributed to possible Acute Metabolic Encephalopathy in the setting of Dementia Alcohol/Drug Induced Parkinson's due to pneumonia -started on Vancomycin and Zosyn for pneumonia coverage -patient was continued Valproic acid in IV form as same dose 500 mg BID, continue -Home medication of risperidal was held to avoid sedation, continue to hold -Home medication of Carbidopa was held in case this was contributory -EEG on 02/07/18" This is an abnormal routine EEG secondary to mild background disorganization and slowing. There was no electrographic seizures or epileptiform discharges. This EEG indicates a mild encephalopathy of nonspecific etiology. Brief episodes of shaking of the arms and full body jerks seen on the video had no EEG correlation and are nonepileptic." -inpatient neurology service : likely metabolic encephalopathy but also recommended Brain MRI which is normal -reviewed outpatient 12/[address] Barrow, and in summary that Patient has been on Carbidopa and Risperidal for years and that Carbidopa and Risperidal should be continued in combination to treat Parkinson's with tardive dyskinesia symptoms and it is unclear whether the Depakote is for Seizure prophylaxis vs for mood disorder -02/09/18 inpatient neurology advises continuing Depakote and carbidopa; will therefor also resume Risperdal -02/10/18 currently oral medications for neuro/psych issues as above On admission patient met SIRS criteria and given IV fluids with Vancomycin and Zosyn for pneumonia coverage 02/06/18 Admission CTA "1. No acute aortic pathology or evidence of pulmonary thromboembolic disease. 2. Tracheobronchial secretions with opacification of the right lower lobe bronchi and air fluid noted within the right mainstem bronchus and bronchus intermedius. There is resultant right middle lobe and partial right lower lobe collapse. No definite obstructing endobronchial mass lesion identified. Further evaluation with bronchoscopy recommended. 3. Multifocal consolidative and groundglass opacities throughout the right lung are suspicious for a combination of atelectasis with pneumonitis. 4. Prominent and enlarged mediastinal and hilar lymph nodes appear unchanged dating back to 12/18/2011." -pulmonary service was asked to evaluate possibly with bronchoscopy for abnormal opacities and right lung collapse. however on 02/08/18, right lung cline appear to be improving on IV antibiotics alone; pulmonary recommendations of pulmonary toilet; scheduled DuoNeb treatment followed by flutter valve and manual percussion, pulmonary vest -Vancomycin was stopped on 02/08/18 as no evidence for MRSA. Blood culture no growth to date. and was continued on IV Zosyn and IV Levofloxacin (started on ) -antibiotic de-escalation to oral Levofloxacin as chest X ray on 02/10/18 with i nterrval development of mild pulmonary edema with small bilateral pleural effusions likely from IV medications -Lasix 20 mg IV given for the mild pulmonary edema, -Chest X ray 02/11/18 Interval improvement in the pulmonary vascular congestion, trace bilateral pleural effusions, and bibasilar densities Speech/swallow evaluation: 1. SLIPPERY Puree diet with thin liquids. Straws okay. 2. GERD Precautions: fully upright with PO, fully upright to at least 30 degrees at all times including sleep 3. Aspiration Precautions: small bites, small sips, slow rate, alternate between solids and liquids Paroxysmal A. Fib - continue digoxin - not on anticoagulation and was deemed not an anticoagulation candidate - given oral beta melissa to slow atrial fibrillation with RVR, continue IV pushes as needed -atorvastatin Mild Hypokalemia and Hypomagnesemia -received supplements during this hospital stay Patient has in the chart a POLST form signed concurrently by his brother Fermín [phone]. Fermín helps patient make medical decisions Discharge Instructions Patient to be discharged with Levofloxacin. Patient should be seen by primary care doctor within 1 week of discharge Current Hospital Diet Patient's current hospital diet: AHA Diet (Heart Healthy) Discharge Diet Recommended Diet: AHA Diet (Heart Healthy) Pending Studies Studies pending at discharge: no Laboratory Results 02/09/18 06:04 Red Blood Count 3.58, Mean Corpuscular Volume 95.8, Mean Corpuscular Hemoglobin 31.3, Mean Corpuscular Hemoglobin Concent 32.7, Mean Platelet Volume 10.0, Neutrophils (%) (Auto) 69.8, Lymphocytes (%) (Auto) 16.7, Monocytes (%) (Auto) 12.9, Eosinophils (%) (Auto) 0.0, Basophils (%) (Auto) 0.2, Neutrophils # (Auto ) 5.87, Lymphocytes # (Auto) 1.40, Monocytes # (Auto) 1.08, Eosinophils # (Auto ) 0.00, Basophils # (Auto) 0.02 02/11/18 05:53 Test 02/06/18 12:02 02/06/18 12:50 02/06/18 12:52 02/06/18 13:06 Urine Color YELLOW Urine Appearance CLEAR (CLEAR) Urine pH 7.5 (4.5-7.5) Urine Specific [place] 1.013 (1.000-1.030) Urine Protein NEG (NEG) Urine Glucose (UA) NEG (NEG) Urine Ketones 1+ (NEG) Urine Occult Blood NEG (NEG) Urine Nitrite NEG (NEG) Urine Bilirubin NEG (NEG) Urine Urobilinogen NEG (NEG) Urine Leukocyte Esterase NEG (NEG) Prothrombin Time 11.0 SECONDS (9.0-12.0) Prothromb Time International Ratio 1.0 (0.9-1.1) Activated Partial Thromboplast Time 26.4 SECONDS (21.0-31.0) Partial Thromboplastin Ratio 1.0 Direct Bilirubin 0.2 mg/dl (0-0.2) Troponin I < 0.015 ng/ml (0-0.045) Lipase 124 U/L (73-393) Thyroid Stimulating Hormone (TSH) 1.580 uIu/ml (0.300-4.500) Digoxin Level 0.7 ng/ml (0.8-2.0) Valproic Acid (Depakene) Level 88 mcg/ml (50-100) Bedside Lactic Acid Venous 2.92 mmol/L (0.90-1.70) Venous Blood pH 7.41 (7.36-7.41) Venous Blood Partial Pressure CO2 47 mmHg (38.0-50.0) Venous Blood Partial Pressure O2 27 mmHg Venous Blood HCO3 29 mmol/L Venous Blood Oxygen Saturation < 60.0 % Venous Blood Base Excess 3.3 mEq/L Ammonia 12.9 umol/L (11-32) Test 02/07/18 04:06 02/09/18 06:04 02/09/18 20:19 02/11/18 05:53 Lactic Acid Level 1.2 mmol/L (0.4-2.0) White Blood Count 8.40 K/uL (4.8-10.8) Red Blood Count 3.58 M/uL (4.7-6.1) Hemoglobin 11.2 g/dL (14.0-18.0) Hematocrit 34.3 % (42-52) Mean Corpuscular Volume 95.8 fL (80-100) Mean Corpuscular Hemoglobin 31.3 pg (25-34) Mean Corpuscular Hemoglobin Concent 32.7 g/dl (32-36) Platelet Count 205 K/uL (130-400) Mean Platelet Volume 10.0 fL (7.4-10.4) Neutrophils (%) (Auto) 69.8 % Lymphocytes (%) (Auto) 16.7 % Monocytes (%) (Auto) 12.9 % Eosinophils (%) (Auto) 0.0 % Basophils (%) (Auto) 0.2 % Neutrophils # (Auto) 5.87 K/uL (1.4-6.5) Lymphocytes # (Auto) 1.40 K/uL (1.2-3.4) Monocytes # (Auto) 1.08 K/uL (0.11-0.59) Eosinophils # (Auto) 0.00 K/uL (0-0.5) Basophils # (Auto) 0.02 K/uL (0-0.2) RDW Standard Deviation 51.7 fL (36.4-46.3) RDW Coefficient of Variation 14.8 % (11.5-14.5) Immature Granulocyte % (Auto) 0.4 % Immature Granulocyte # (Auto) 0.03 K/uL (0.00-0.02) Bedside Glucose 111 mg/dl (70-99) Anion Gap 10.0 mmol/L (3-11) Est Creatinine Clear Calc Drug Dose 97.4 ml/min Estimated GFR () 109.4 Estimated GFR (Non- 94.4 BUN/Creatinine Ratio 20.1 (10-20) Calcium Level 8.8 mg/dl (8.5-10.1) Magnesium Level 1.8 mg/dl (1.8-2.4) Total Bilirubin 0.5 mg/dl (0.2-1) Aspartate Amino Transf (AST/SGOT) 18 U/L (15-37) Alanine Aminotransferase (ALT/SGPT) 12 U/L (12-78) Alkaline Phosphatase 123 U/L (45-117) Total Protein 7.5 gm/dl (6.4-8.2) Albumin 2.9 gm/dl (3.4-5.0) Globulin 4.6 gm/dl (2.5-4.0) Albumin/Globulin Ratio 0.6 (0.9-2) Date/Time Source Procedure Growth Status 02/06/18 13:06 Blood Blood Culture - Preliminary NO GROWTH TO DATE. Resulted 02/06/18 17:20 Nasal MRSA DNA Surveillance Screen - Final Specimen Negative for MRSA by DNA Probe Complete 02/06/18 12:02 Urine , Clean Catch Urine Culture - Final NO GROWTH - LESS THAN 1,000 COLONIES/ML Complete Medical Emergencies . Who to Call and When: Medical Emergencies: If at any time you feel your situation is an emergency, please call 911 immediately. . Non-Emergent Contact Non-Emergency issues call your: Primary Care Provider . . "Provider Documentation" section prepared by Tl Carballo. .
--- NOTE | 2018-02-11 13:30 | Discharge Summary ---
Discharge Summary Date of Service Feb 11, 2018. Discharge Summary Admission Date: Feb 06, 2018 at 15:11 Discharge Date: Feb 11, 2018 Principal Diagnosis: altered mental status from possible Acute Metabolic Encephalopathy in the setting of Dementia Alcohol/Drug Induced Parkinson's due to pneumonia right sided pneumonia initially presented radiographically as lung collapse Secondary Diagnoses/Problems: Paroxysmal Atrial Fibrillation Medication Reconciliation New Medications: Levofloxacin (Levofloxacin) 750 Mg Tab 750 MG PO DAILY@1400 for 4 Days, #4 TAB Continued Medications: Acetaminophen (Tylenol) 325 Mg Tab 650 MG PO Q8 PRN for Pain DO NOT EXCEED 3GM/24HR Acetaminophen (Tylenol) 325 Mg Tab 650 MG PO Q8 PRN for TEMP >101 DO NOT EXCEED 3GM/24HR Atorvastatin (Lipitor) 20 Mg Tab 20 MG PO DAILY Carbidopa/Levodopa (Sinemet 25MG/250MG) Tab 1 TAB PO Q4, 0 Refills Digoxin (Digoxin) 0.125 Mg Tab 0.125 MG PO DAILY hold for pulse <60 Divalproex Sodium (Depakote Delay Rel) 500 Mg Tab 500 MG PO BID Melatonin (Melatonin) 1 Mg Tab 1 MG PO HS PRN for Insomnia Metoprolol Tartrate (Lopressor) (Lopressor) 50 Mg Tab 50 MG PO DAILY, 0 Refills Risperidone (Risperdal) 0.25 Mg Tab 0.25 MG PO QAM Risperidone (Risperdal) 0.25 Mg Tab 0.75 MG PO HS Sennosides-Docusate Sodium (Senokot S) 1 Tab Tab 1 TAB PO BID, TAB Discontinued Medications: Hydrocodone/Acetaminophen 5MG/325MG (Stirum 5MG/325MG) Tab 1 TAB PO QID PRN for Pain PRN PAIN Admission Information HPI (per Admitting provider): This is a 67 year old male with a past medical history of dementia, alcohol/ drug induced Parkinson's, hx. of seizure disorder, atrial fibrillation on digoxin, HTN, HLD - presents from [facility] due to altered mental status; he has had difficulty ambulating; which he does with a walker at baseline. He is difficult to arouse; at baseline, he has a resting tremor. On exam, he has sonorous breath sounds; he is not waking to verbal or tactile stimuli, but does grimace at times. No rash noted throughout body, no edema. Upon presentation, noted to have high white count and lactic acid, he is tachycardic. EKG shows sinus tachycardia. CXR shows opacities on the R side; chest CT was then performed showing partial R lung collapse Physical Exam (per Admitting): General Appearance: + pertinent finding (Unable to arouse, at times grimacing; sonorous breath sounds) Head: normocephalic, atraumatic Eyes: normal inspection ENT: hearing grossly normal Respiratory/Chest: no respiratory distress, no accessory muscle use, + decreased breath sounds, + rhonchi Cardiovascular: regular rate, rhythm, no edema, no murmur Extremities/Musculoskelatal: normal capillary refill, no pedal edema Neurologic/Psych: + pertinent finding (resting tremor, no motor weakness; ) Hospital Course Hospital Course and Discharge Plans This is a 67 year old male with a past medical history of dementia, alcohol/ drug induced Parkinson's, hx. of seizure disorder, atrial fibrillation on digoxin, HTN, HLD - presents from [facility] due to altered mental status Altered Mental Status -As per ED documentation on 02/06/18 "The patient is a 67 year old male who presents to the Emergency Room with complaints of altered mental status. The patient was transported by EMS from [facility]. Per report, the patient has dementia at baseline. This morning he was unable to ambulate, when he normally is able to with a walker. They note patient also has mumbled speech at his baseline. They were concerned as patient was harder to arouse this morning, so they sent him in." -Head CT negative -was subsequently admitted and the mental status was attributed to possible Acute Metabolic Encephalopathy in the setting of Dementia Alcohol/Drug Induced Parkinson's due to pneumonia -started on Vancomycin and Zosyn for pneumonia coverage -patient was continued Valproic acid in IV form as same dose 500 mg BID, continue -Home medication of risperidal was held to avoid sedation, continue to hold -Home medication of Carbidopa was held in case this was contributory -EEG on 02/07/18" This is an abnormal routine EEG secondary to mild background disorganization and slowing. There was no electrographic seizures or epileptiform discharges. This EEG indicates a mild encephalopathy of nonspecific etiology. Brief episodes of shaking of the arms and full body jerks seen on the video had no EEG correlation and are nonepileptic." -inpatient neurology service : likely metabolic encephalopathy but also recommended Brain MRI which is normal -reviewed outpatient 12/[address] Barrow, and in summary that Patient has been on Carbidopa and Risperidal for years and that Carbidopa and Risperidal should be continued in combination to treat Parkinson's with tardive dyskinesia symptoms and it is unclear whether the Depakote is for Seizure prophylaxis vs for mood disorder -02/09/18 inpatient neurology advises continuing Depakote and carbidopa; will therefor also resume Risperdal -02/10/18 currently oral medications for neuro/psych issues as above On admission patient met SIRS criteria and given IV fluids with Vancomycin and Zosyn for pneumonia coverage 02/06/18 Admission CTA "1. No acute aortic pathology or evidence of pulmonary thromboembolic disease. 2. Tracheobronchial secretions with opacification of the right lower lobe bronchi and air fluid noted within the right mainstem bronchus and bronchus intermedius. There is resultant right middle lobe and partial right lower lobe collapse. No definite obstructing endobronchial mass lesion identified. Further evaluation with bronchoscopy recommended. 3. Multifocal consolidative and groundglass opacities throughout the right lung are suspicious for a combination of atelectasis with pneumonitis. 4. Prominent and enlarged mediastinal and hilar lymph nodes appear unchanged dating back to 12/18/2011." -pulmonary service was asked to evaluate possibly with bronchoscopy for abnormal opacities and right lung collapse. however on 02/08/18, right lung cline appear to be improving on IV antibiotics alone; pulmonary recommendations of pulmonary toilet; scheduled DuoNeb treatment followed by flutter valve and manual percussion, pulmonary vest -Vancomycin was stopped on 02/08/18 as no evidence for MRSA. Blood culture no growth to date. and was continued on IV Zosyn and IV Levofloxacin (started on ) -antibiotic de-escalation to oral Levofloxacin as chest X ray on 02/10/18 with i nterrval development of mild pulmonary edema with small bilateral pleural effusions likely from IV medications -Lasix 20 mg IV given for the mild pulmonary edema, -Chest X ray 02/11/18 Interval improvement in the pulmonary vascular congestion, trace bilateral pleural effusions, and bibasilar densities Speech/swallow evaluation: 1. SLIPPERY Puree diet with thin liquids. Straws okay. 2. GERD Precautions: fully upright with PO, fully upright to at least 30 degrees at all times including sleep 3. Aspiration Precautions: small bites, small sips, slow rate, alternate between solids and liquids Paroxysmal A. Fib - continue digoxin - not on anticoagulation and was deemed not an anticoagulation candidate - given oral beta melissa to slow atrial fibrillation with RVR, continue IV pushes as needed -atorvastatin Mild Hypokalemia and Hypomagnesemia -received supplements during this hospital stay Patient has in the chart a POLST form signed concurrently by his brother Fermín [phone]. Fermín helps patient make medical decisions Discharge Instructions Patient to be discharged with Levofloxacin. Patient should be seen by primary care doctor within 1 week of discharge Total time spent on discharge = 40 minutes This includes examination of the patient, discharge planning, medication reconciliation, and communication with other providers. Discharge Instructions see above
== END 2018-02-11 14:19 | DRG 871 ==
LOC: EDBD 11:51 → C.EDA 11:53 → C.2T 15:11 → ENRESERV 15:26 → C.MS2W 02-11 08:22 → ENRESERV 02-11 08:44 → C.MS2W 02-11 10:15
PROVIDERS: ADMIT Family Medicine; ATTEND Hospitalist
DX: A41.9 Sepsis, unspecified organism (principal); J18.9 Pneumonia, unspecified organism; G93.41 Metabolic encephalopathy; G21.19 Other drug induced secondary parkinsonism; J98.19 Other pulmonary collapse; J81.1 Chronic pulmonary edema; T50.905A Adverse effect of unspecified drugs, medicaments and biological substances, initial encounter; G31.83 Neurocognitive disorder with Lewy bodies; F02.80 Dementia in other diseases classified elsewhere, unspecified severity, without behavioral disturbance, psychotic disturbance, mood disturbance, and anxiety; R26.2 Difficulty in walking, not elsewhere classified; E87.6 Hypokalemia; E83.42 Hypomagnesemia; I48.0 Paroxysmal atrial fibrillation; E11.22 Type 2 diabetes mellitus with diabetic chronic kidney disease; N18.9 Chronic kidney disease, unspecified; I13.10 Hypertensive heart and chronic kidney disease without heart failure, with stage 1 through stage 4 chronic kidney disease, or unspecified chronic kidney disease; E78.5 Hyperlipidemia, unspecified; G40.909 Epilepsy, unspecified, not intractable, without status epilepticus; Z51.81 Encounter for therapeutic drug level monitoring; Z79.899 Other long term (current) drug therapy; Z66 Do not resuscitate; Z88.6 Allergy status to analgesic agent

== ENCOUNTER 2020-04-14 19:21 | Inpatient (IN) ==
[2020-04-14] MEDS ORDERED: SODIUM CHLORIDE 0.9% 1000ML 500 ML IV ONE ×2 (19:53→21:11)
--- NOTE | 2020-04-14 20:44 | Emergency Department Note ---
Impression & Plan Altered mental status, Acute dehydration, Acute hypernatremia, Hypoxia, COVID- 19 ED Provider Note Provider: Dorian Stanton MD DATE OF SERVICE:04/14/2020 CHIEF COMPLAINT: Lethargy, decreased intake HISTORY OF PRESENT ILLNESS: Patient is a 68-year-old gentleman with a past medical history of BPH, hypothyroidism, hypertension, sepsis presenting here today via ambulance from [facility]. Patient evidently was diagnosed March 27 with coronavirus. Has been continued on oxygen time and saturating well. Reportedly not eating and drinking well and now is more lethargic. No trauma is reported or recent fevers. Patient unable to provide history 2/2 AMS and withdraws to pain only. Facility called and state decline over week with little intake. Gave IVF last Sunday. Normally they report he gets around the unit but not currently. They tried to push oral fluids but he would not take them today as well as he would not take his meds. They state they did call and advise his brother of his transfer to ED for evaluation. Patient presents with signed POLST stating limited measures and DNR status. REVIEW OF SYSTEMS: Unable to obtain history from the patient. PAST MEDICAL HISTORY: As noted above MEDICATIONS: reviewed [facility] SOCIAL HISTORY: unable to obtain 2/2 AMS, lives at [facility] PHYSICAL EXAM: GENERAL: withdraws to pain only eye open starring at ceiling Head: normocephalic and atraumatic EYES: No injection, discharge or icterus. PERRL @3mm NECK: Trachea midline. Supple. ENT: Mucous membranes dry with dried secretions around mouth. Pharynx without erythema, dry LUNGS: Airway patent. No retractions or increased work of breathing. HEART: Regular rate and rhythm. No chest wall tenderness ABDOMEN: Soft and non-tender, without guarding or rebound. SKIN: Acyanotic, warm, dry EXTREMITIES: Without swelling or tenderness noted. NEUROLOGICAL: Withdraws to pain in all 4 extremities. Non verbal but groans to pain. Eyes open and starring ahead, focuses eye to object of pain. Localizes to pain. EK bpm normal sinus rhythm without PVC or PAC. There is no acute ST segment elevation noted although there is significant baseline artifact. There is significant predominantly anterior and anterior lateral T wave inversions and ST depressions V3 through V6 that appears new in comparison to previous from June 05, 2018. CONTINUOUS CARDIAC MONITORING: was ordered and showed a heart rate of 88 bpm in NSR Patient's laboratory studies and imaging reviewed. Differential includes Infection, dehydration, metabolic abnormality, hypo/hyperglycemia, electrolyte disturbance, anemia, hypoxia, cardiac sources, intracerebral event, toxicologic, neurologic, as well as other pathologies. IMPRESSION/MEDICAL DECISION MAKING: Patient presents with altered mental status and decline over the past week according facility. He is unable to provide significant history here. Patient himself only withdraws to pain. Peers significantly dehydrated on exam. EKG with ST depression question demand component. Not really having focal deficits and lower suspicion for CVA but a CT of the head was completed to exclude this. Basic labs are sent including D-dimer and troponin. Cultures and lactate ordered as well as ABG. CXR with R base haziness and repeat COVID testing sent since it has been 18 days since positive. Troponin here is undetectable surprisingly. Sodium critically high at 164 and giving IVF likely 2/2 dehydration. No urine noted on cath attempt. Potassium ok. No lipase elevation noted. CRP mildlly elevated. D dimer >69308 but Cr stable at 1.98 precludes CTA. Will be empirically anticoagulated in discussion with hospitalist on admission. Noncon-chest CT was completed discussed with the hospitalist to further evaluate the lung parenchyma. Procalcitonin undetectable had a slight white count of 12.3 is likely reactive and I doubt significant bacterial component to his symptoms. Mild anemia. Macrocytosis is noted however. ABG with a pH of 7.46, CO2 of 37, PO2 of 76 on room air and discussed with the nurse put him on 2 L for additional oxygen supplementation. Not digoxin toxic and valproate level not excessive. CT head and CT chest per stat rad show no acute intracranial bleed with diffuse lung pneumonitis RLL>RUL; scant debris reported per rads in airway but no stridor and DNI. This is consistent with COVID and doubt bacterial component given additional labs. Will defer antibiotics at this time. Patient COVID + on testing here. Hospitalist will admit the patient. DIAGNOSIS: Altered mental status, hypernatremia, dehydration, hypoxia 2/2 to COVID. DISPOSITION: Hospitalist will evaluate for admission. Updated patient's brother via phone. Critical Care I have personally spent 60 minutes of critical care time in the direct management of this patient. This includes bedside care, interpretation of diagnostic studies, and testing, discussion with consultants, patient, and family members, and other required patient management activities. These 60 minutes is in excess of all separately billable procedures. Preliminary Findings Only See Final Report For Complete Findings CT HEAD: No ICH, mass effect or edema. No evidence of acute cortical stroke. Periventricular small vessel ischemic change. Visualized sinuses and mastoid air cells are clear. Radiologist: Stephen Bran M.D. Study ready at 22:14 and initial results transmitted at 22:19 Preliminary Findings Only See Final Report For Complete Findings CT CHEST Without Contrast: Mild pneumonitis in the right upper lobe with more confluent consolidation in the right lower lobe. Mild nodular infiltrate in the lingula. Some debris in the airway. Radiologist: Stephen Bran M.D. Study ready at 22:16 and initial results transmitted at 22:28 Past Med/Surg History Medical History (Updated 04/14/20 @ 21:53 by Dorian Stanton M.D.) A-fib Dementia Dementia Depression Epilepsy Hyperlipidemia Hypertension Parkinson disease Social History Smoking Status: Unknown if ever smoked Hx Alcohol Use: No Hx Substance Use: No Preferred Language: [place] Communication Ability: Unable Release Of Information Clerk Required: No Beliefs That Will Affect Care: None Current Living Situation: [facility] Current Living Situation Comment: Resides at [facility] Feels Safe at Home: Yes Assistive Devices: Glasses and Walker Allergies Allergies Allergy/AdvReac Type Severity Reaction Status Date / Time naproxen Allergy Mild Unknown Verified 04/14/20 22:19 Home Meds Home Medications Medication Instructions Recorded Confirmed acetaminophen 650 mg PO Q8H PRN MDD 3 GM/24 HOURS 04/09/18 06/05/18 atorvastatin 20 mg PO HS 04/09/18 06/05/18 carbidopa-levodopa 1 tab PO QID 04/09/18 06/05/18 digoxin 125 mcg PO DAILY 04/09/18 06/05/18 divalproex [Depakote] 500 mg PO BID 04/09/18 06/05/18 guaifenesin 10 ml PO Q6H PRN 04/09/18 06/05/18 hydrocodone-acetaminophen 1 tab PO QID 04/09/18 06/05/18 ipratropium-albuterol 3 ml INHALATION Q6H PRN 04/09/18 06/05/18 loratadine 10 mg PO DAILY 04/09/18 06/05/18 melatonin 1 mg PO HS PRN 04/09/18 06/05/18 metoprolol tartrate 50 mg PO QAM 04/09/18 06/05/18 risperidone [Risperdal] 0.25 mg PO QAM 04/09/18 06/05/18 risperidone [Risperdal] 0.75 mg PO HS 04/09/18 06/05/18 sennosides-docusate sodium 1 tab PO BID 04/09/18 06/05/18 [Senokot-S] Results & Data (ED) Vital Signs Vital Signs - 24 hr 04/14/20 19:30 04/14/20 19:36 04/14/20 20:00 Temperature Temperature Source Pulse Rate 95 H 95 H 89 Pulse Rate from SpO2 Sensor 95 H 94 H 88 Respiratory Rate 13 18 19 Blood Pressure 144/84 H Blood Pressure Mean 106 Pulse Oximetry 100 100 98 Oxygen Delivery Method Oxygen Flow Rate Sepsis Recent Fever Within 48 Hours Sepsis New/Unexplained Change in Mental Status Sepsis Action Taken by Nursing 04/14/20 20:07 04/14/20 20:30 04/14/20 20:51 Temperature 36.6 C Temperature Source Oral Pulse Rate 80 83 84 Pulse Rate from SpO2 Sensor 82 85 Respiratory Rate 18 21 17 Blood Pressure 144/84 H 122/70 Blood Pressure Mean 104 83 Pulse Oximetry 99 99 100 Oxygen Delivery Method Room Air Oxygen Flow Rate Sepsis Recent Fever Within 48 Hours No Sepsis New/Unexplained Change in Mental Status No Sepsis Action Taken by Nursing No Action Required 04/14/20 21:00 04/14/20 21:01 04/14/20 21:30 Temperature Temperature Source Pulse Rate 80 83 96 H Pulse Rate from SpO2 Sensor 81 83 82 Respiratory Rate 20 17 21 Blood Pressure 121/70 125/71 Blood Pressure Mean 75 100 Pulse Oximetry 100 100 100 Oxygen Delivery Method Oxygen Flow Rate 2 Sepsis Recent Fever Within 48 Hours Sepsis New/Unexplained Change in Mental Status Sepsis Action Taken by Nursing 04/14/20 21:31 04/14/20 22:12 Temperature Temperature Source Pulse Rate 83 81 Pulse Rate from SpO2 Sensor 83 Respiratory Rate 16 15 Blood Pressure Blood Pressure Mean Pulse Oximetry 100 Oxygen Delivery Method Oxygen Flow Rate 2 Sepsis Recent Fever Within 48 Hours Sepsis New/Unexplained Change in Mental Status Sepsis Action Taken by Nursing Laboratory Data Result diagrams: 04/14/20 20:52 04/14/20 20:10 Lab Results 04/14/20 04/14/20 04/14/20 Range/Units 19:40 19:40 20:10 WBC (4.8-10.8) K/uL RBC (4.7-6.1) M/uL Hgb (14.0-18.0) g/dL Hct (42-52) % MCV (80-100) fL MCH (25-34) pg MCHC (32-36) g/dL RDW Std Deviation (36.4-46.3) fL RDW Coeff of Ezio (11.5-14.5) % Plt Count (130-400) K/uL MPV (7.4-10.4) fL Immature Gran % (Auto) % Neut % (Auto) % Lymph % (Auto) % Carolina % (Auto) % Eos % (Auto) % Baso % (Auto) % Neut # (Auto) (1.4-6.5) K/uL Lymph # (Auto) (1.2-3.4) K/uL Carolina # (Auto) (0.11-0.59) K/uL Eos # (Auto) (0-0.5) K/uL Baso # (Auto) (0-0.2) K/uL Immature Gran # (Auto) (0.00-0.02) K/uL Macrocytosis ABG pH (7.35-7.45) ABG pCO2 (35-46) mmHg ABG pO2 (80-95) mmHg ABG HCO3 (19-24) mmol/L ABG O2 Saturation (90-95) % ABG Base Excess (-9-1.8) mEq/L Ciaran Test (Pos) Barometric Pressure mm/Hg Oxygen Given Sodium 164 H* (136-145) mmol/L Potassium 4.9 (3.5-5.1) mmol/L Chloride 131 H (98-107) mmol/L Carbon Dioxide 28 (21-32) mmol/L Anion Gap 5.0 (3-11) BUN 89 H (7-18) mg/dl Creatinine 1.98 H (0.6-1.4) mg/dl Est Cr Clr Drug Dosing 27.0 ml/min Est GFR ( Amer) 38.5 Est GFR (Non-Af Amer) 33.2 BUN/Creatinine Ratio 45.2 H (10-20) Glucose 137 H (70-99) mg/dl Calcium 9.2 (8.5-10.1) mg/dl Total Bilirubin 0.3 (0.2-1) mg/dl AST 14 L (15-37) U/L ALT < 6 L (12-78) U/L Alkaline Phosphatase 145 H (45-117) U/L Troponin I < 0.015 (0-0.045) ng/ml C-Reactive Protein 2.41 H (0-0.29) mg/dl Total Protein 9.4 H (6.4-8.2) gm/dl Albumin 2.8 L (3.4-5.0) gm/dl Globulin 6.6 H (2.5-4.0) gm/dl Albumin/Globulin Ratio 0.4 L (0.9-2) Lipase 308 (73-393) U/L Procalcitonin (0-0.5) ng/ml Digoxin (0.8-2.0) ng/ml Valproic Acid (50-100) mcg/ml COVID-19 Eval Order Covid[address] [facility] COVID-19 PCR POSITIVE A* (Negative) 04/14/20 04/14/20 04/14/20 Range/Units 20:10 20:10 20:52 WBC 12.03 H (4.8-10.8) K/uL RBC 3.30 L (4.7-6.1) M/uL Hgb 11.1 L (14.0-18.0) g/dL Hct 36.3 L (42-52) % MCV 110.0 H (80-100) fL MCH 33.6 (25-34) pg MCHC 30.6 L (32-36) g/dL RDW Std Deviation 60.5 H (36.4-46.3) fL RDW Coeff of Ezio 15.6 H (11.5-14.5) % Plt Count 339 (130-400) K/uL MPV 11.5 H (7.4-10.4) fL Immature Gran % (Auto) 1.5 % Neut % (Auto) 72.9 % Lymph % (Auto) 10.8 % Carolina % (Auto) 14.7 % Eos % (Auto) 0.0 % Baso % (Auto) 0.1 % Neut # (Auto) 8.77 H (1.4-6.5) K/uL Lymph # (Auto) 1.30 (1.2-3.4) K/uL Carolina # (Auto) 1.77 H (0.11-0.59) K/uL Eos # (Auto) 0.00 (0-0.5) K/uL Baso # (Auto) 0.01 (0-0.2) K/uL Immature Gran # (Auto) 0.18 H (0.00-0.02) K/uL Macrocytosis Present ABG pH (7.35-7.45) ABG pCO2 (35-46) mmHg ABG pO2 (80-95) mmHg ABG HCO3 (19-24) mmol/L ABG O2 Saturation (90-95) % ABG Base Excess (-9-1.8) mEq/L Ciaran Test (Pos) Barometric Pressure mm/Hg Oxygen Given Sodium (136-145) mmol/L Potassium (3.5-5.1) mmol/L Chloride (98-107) mmol/L Carbon Dioxide (21-32) mmol/L Anion Gap (3-11) BUN (7-18) mg/dl Creatinine (0.6-1.4) mg/dl Est Cr Clr Drug Dosing ml/min Est GFR ( Amer) Est GFR (Non-Af Amer) BUN/Creatinine Ratio (10-20) Glucose (70-99) mg/dl Calcium (8.5-10.1) mg/dl Total Bilirubin (0.2-1) mg/dl AST (15-37) U/L ALT (12-78) U/L Alkaline Phosphatase (45-117) U/L Troponin I (0-0.045) ng/ml C-Reactive Protein (0-0.29) mg/dl Total Protein (6.4-8.2) gm/dl Albumin (3.4-5.0) gm/dl Globulin (2.5-4.0) gm/dl Albumin/Globulin Ratio (0.9-2) Lipase (73-393) U/L Procalcitonin < 0.05 (0-0.5) ng/ml Digoxin 1.9 (0.8-2.0) ng/ml Valproic Acid 43 L (50-100) mcg/ml COVID-19 Eval Order COVID-19 PCR (Negative) 04/14/20 Range/Units 20:52 WBC (4.8-10.8) K/uL RBC (4.7-6.1) M/uL Hgb (14.0-18.0) g/dL Hct (42-52) % MCV (80-100) fL MCH (25-34) pg MCHC (32-36) g/dL RDW Std Deviation (36.4-46.3) fL RDW Coeff of Ezio (11.5-14.5) % Plt Count (130-400) K/uL MPV (7.4-10.4) fL Immature Gran % (Auto) % Neut % (Auto) % Lymph % (Auto) % Carolina % (Auto) % Eos % (Auto) % Baso % (Auto) % Neut # (Auto) (1.4-6.5) K/uL Lymph # (Auto) (1.2-3.4) K/uL Carolina # (Auto) (0.11-0.59) K/uL Eos # (Auto) (0-0.5) K/uL Baso # (Auto) (0-0.2) K/uL Immature Gran # (Auto) (0.00-0.02) K/uL Macrocytosis ABG pH 7.46 H (7.35-7.45) ABG pCO2 37 (35-46) mmHg ABG pO2 76 L (80-95) mmHg ABG HCO3 26 H (19-24) mmol/L ABG O2 Saturation 95.5 H (90-95) % ABG Base Excess 2.3 H (-9-1.8) mEq/L Ciaran Test Pos (Pos) Barometric Pressure 735.2 mm/Hg Oxygen Given ROOM AIR Sodium (136-145) mmol/L Potassium (3.5-5.1) mmol/L Chloride (98-107) mmol/L Carbon Dioxide (21-32) mmol/L Anion Gap (3-11) BUN (7-18) mg/dl Creatinine (0.6-1.4) mg/dl Est Cr Clr Drug Dosing ml/min Est GFR ( Amer) Est GFR (Non-Af Amer) BUN/Creatinine Ratio (10-20) Glucose (70-99) mg/dl Calcium (8.5-10.1) mg/dl Total Bilirubin (0.2-1) mg/dl AST (15-37) U/L ALT (12-78) U/L Alkaline Phosphatase (45-117) U/L Troponin I (0-0.045) ng/ml C-Reactive Protein (0-0.29) mg/dl Total Protein (6.4-8.2) gm/dl Albumin (3.4-5.0) gm/dl Globulin (2.5-4.0) gm/dl Albumin/Globulin Ratio (0.9-2) Lipase (73-393) U/L Procalcitonin (0-0.5) ng/ml Digoxin (0.8-2.0) ng/ml Valproic Acid (50-100) mcg/ml COVID-19 Eval Order COVID-19 PCR (Negative) Administered Medications Discontinued Medications Sodium Chloride (Nss 1000ml) 500 mls @ 999 mls/hr IV .Q31M ONE Stop: 04/14/20 20:23 Last Infusion: 04/14/20 21:26 Dose: 0 mls/hr Documented by: [id number] Admin: 04/14/20 20:36 Dose: 999 mls/hr Documented by: [id number] Sodium Chloride (Nss 1000ml) 500 mls @ 999 mls/hr IV .Q31M ONE Stop: 04/14/20 21:41 Last Admin: 04/14/20 21:26 Dose: 999 mls/hr Documented by: [id number] Discharge Plan Visit Data Chief Complaint: Lethargic Stated Complaint: LETHARGIC, COVID + ED Provider: Dorian Stanton Discharge Problem: Altered mental status, Acute dehydration, Acute hypernatremia, Hypoxia, COVID- 19 Patient Disposition: Admitted As Inpatient Forms Stand Alone Forms: [facility] Referrals Referrals: Felix Coronel [Primary Care Provider] - Discharge Problem: Altered mental status Qualifiers: Altered mental status type: stupor Qualified Code(s): R40.1 - Stupor
[2020-04-14 20:47] LABS: INR 1.1 (0.9-1.1); Prothrombin Time 11.7 Seconds (9.0-12.0)
[2020-04-14 20:48] LABS: D Dimer 20340 ug/L FEU (0-500)
--- NOTE | 2020-04-14 20:53 | XRay Report ---
XR chest 1V portable HISTORY: Shortness of breath, covid COMPARISON: Chest 06/05/2018. FINDINGS: No pneumothorax. Stable blunting of the left lateral costophrenic sulcus. The heart is norm al in size. Old, healed right-sided rib fractures. Hazy appearance to the right lung base. A few left basilar linear densities suggesting subsegmental atelectasis. Mild emphysema. IMPRESSION: Hazy appearance to the right lung base. This may represent a mild pneumonitis. ACT 112: Negative or not required by law. Electronically signed by: Kulwant Minor M.D. 04/14/2020 8:52 PM
[2020-04-14 21:00] LABS: Alanine Aminotransferase < 6 U/L (12-78); Albumin Globulin Ratio 0.4 (0.9-2); Albumin Level 2.8 gm/dl (3.4-5.0); Alkaline Phosphatase 145 U/L (45-117); Aspartate Aminotransferase 14 U/L (15-37); BUN Creatinine Ratio 45.2 (10-20); Bilirubin,Total 0.3 mg/dl (0.2-1); Blood Urea Nitrogen 89 mg/dl (7-18); C Reactive Protein 2.41 mg/dl (0-0.29); Calcium 9.2 mg/dl (8.5-10.1); Carbon Dioxide 28 mmol/L (21-32); Chloride 131 mmol/L (98-107); Est GFR (African American) 38.5; Est GFR (Non-African American) 33.2; Globulin 6.6 gm/dl (2.5-4.0); Glucose 137 mg/dl (70-99); Lipase 308 U/L (73-393); Potassium 4.9 mmol/L (3.5-5.1); Sodium 164 mmol/L (136-145); Total Protein 9.4 gm/dl (6.4-8.2); Troponin I < 0.015 ng/ml (0-0.045)
[2020-04-14 21:04] LABS: Basophils # (auto) 0.01 K/uL (0-0.2); Basophils % (auto) 0.1 %; Hematocrit (blood only) 36.3 % (42-52); Hemoglobin 11.1 g/dL (14.0-18.0); Immature Granulocytes # (auto) 0.18 K/uL (0.00-0.02); Immature Granulocytes % (auto) 1.5 %; Lymphocytes % (auto) 10.8 %; Mean Corpuscular Hemoglobin 33.6 pg (25-34); Mean Corpuscular Hgb Conc 30.6 g/dL (32-36); Mean Platelet Volume 11.5 fL (7.4-10.4); Monocytes # (auto) 1.77 K/uL (0.11-0.59); Monocytes % (auto) 14.7 %; Neutrophils # (auto) 8.77 K/uL (1.4-6.5); Neutrophils % (auto) 72.9 %; Platelet Count 339 K/uL (130-400); RDW Coefficient of Variation 15.6 % (11.5-14.5); RDW Standard Deviation 60.5 fL (36.4-46.3); White Blood Count 12.03 K/uL (4.8-10.8)
[2020-04-14 21:09] LABS: Digoxin 1.9 ng/ml (0.8-2.0)
[2020-04-14 21:09] LABS: Base Excess ABG 2.3 mEq/L (-9-1.8); HCO3 ABG 26 mmol/L (19-24); Oxygen Saturation ABG 95.5 % (90-95); PCO2 ABG 37 mmHg (35-46); PO2 ABG 76 mmHg (80-95); pH ABG 7.46 (7.35-7.45)
[2020-04-14 21:10] LABS: Allen Test Pos (Pos)
[2020-04-14 21:30] LABS: Macrocytosis Present
--- NOTE | 2020-04-14 23:02 | History & Physical Report ---
Date of Service April 14, 2020 Assessment & Plan (1) Pneumonia due to COVID-19 virus: Place on Decadron 6 mg IV daily Vancomycin IV per pharmacokinetic monitoring Zosyn 3.375 mg IV every 8 hours Lovenox 90 mg subcu every 24 hours for reported D-dimer greater than 20,000. Present on Admission?: Yes (2) Acute hypernatremia: Sodium level upon admission 164. Creatinine 1.98 Patient received 1 L normal saline in ED Place on half-normal saline at 100 mils per hour Repeat BMP and magnesium level in a.m. Present on Admission?: Yes (3) Seizure disorder: Presently is on divalproex 500 mg p.o. twice daily. Changed to IV dosing. Present on Admission?: Yes (4) Paroxysmal atrial fibrillation: Change oral digoxin 125 mcg daily to IV. Dig level upon admission 1.9, with range 0.8-2.0. We will resume digoxin on 04/16. Present on Admission?: Yes (5) Parkinson disease: hold meds until awake and alert Present on Admission?: Yes (6) Dementia: (7) Acute kidney injury superimposed on chronic kidney disease: Creatinine 1.98 upon admission. As noted above, has been placed on IV fluids, with serial laboratories every morning Present on Admission?: Yes History of Present Illness Chief Complaint: The patient presents to the emergency department as a transfer from [facility] due to worsening oxygenation, decreased appetite and worsening lethargy Primary Care Provider: Felix Gomezcandelaria The patient is a 70-year-old male with a past medical history including BPH, hyperlipidemia, hypertension, seizure disorder, paroxysmal atrial fibrillation, Parkinson's disease, dementia, sepsis, food impaction, BPH and lung collapse. He was diagnosed with COVID-19 viral infection on March 27, and reportedly had been oxygenating well and eating well until the past several days. The patient himself is not responsive upon arrival to the ED. He is confirmed via records to be a DNR/DNI, but will accept antibiotics and IV fluids. Repeat laboratories in ED this evening confirmed COVID-19 viral infection. Allergies Allergy/AdvReac Type Severity Reaction Status Date / Time naproxen Allergy Mild Unknown Verified 04/14/20 22:19 Home Medications Home Medications Medication Instructions Recorded Confirmed Type 2 Talib Cc Supplement 120 ml PO QID 04/14/20 04/14/20 History Supplement Shakes 1 dose PO TID 04/14/20 04/14/20 History acetaminophen [Tylenol] 650 mg PO Q8 PRN 04/14/20 04/14/20 History atorvastatin [Lipitor] 20 mg PO HS 04/14/20 04/14/20 History bisacodyl [Dulcolax (bisacodyl)] 10 mg MD UD PRN 04/14/20 04/14/20 History carbidopa-levodopa 1 tab PO QID 04/14/20 04/14/20 History dexamethasone sodium phosphate 6 mg IV DAILY 04/14/20 04/14/20 History digoxin 125 mcg PO DAILY 04/14/20 04/14/20 History divalproex 500 mg PO BID 04/14/20 04/14/20 History folic acid 1 mg PO DAILY 04/14/20 04/14/20 History guaifenesin 400 mg PO BID 04/14/20 04/14/20 History hydrocodone-acetaminophen [Chloride] 1 tab PO Q6 04/14/20 04/14/20 History hydrocodone-acetaminophen [Chloride] 1 tab PO Q6 PRN 04/14/20 04/14/20 History loratadine [Claritin] 10 mg PO DAILY 04/14/20 04/14/20 History magnesium hydroxide [Milk of 30 ml PO UD PRN 04/14/20 04/14/20 History Magnesia] meloxicam [Mobic] 15 mg PO HS 04/14/20 04/14/20 History metoprolol tartrate [Lopressor] 50 mg PO DAILY 04/14/20 04/14/20 History mirtazapine [Remeron] 15 mg PO HS 04/14/20 04/14/20 History risperidone 0.75 mg PO HS 04/14/20 04/14/20 History risperidone 1 mg PO QAM 04/14/20 04/14/20 History sennosides-docusate sodium 1 tab-cap PO BID 04/14/20 04/14/20 History [Senokot-S] Past Med/Surg History Medical History (Updated 04/15/20 @ 04:19 by Brett Moreira MD) A-fib Dementia Dementia Depression Epilepsy Hyperlipidemia Hypertension Parkinson disease Social History Smoking Status: Unknown if ever smoked Hx Alcohol Use: No Hx Substance Use: No Preferred Language: Thai Communication Ability: Unable White [employer]oe Examiner Required: No Beliefs That Will Affect Care: None Current Living Situation: Intermediate Current Living Situation Comment: Resides at [facility] Feels Safe at Home: Yes Assistive Devices: Glasses and Walker Review of Systems Review of Systems: Unobtainable due to cognitive status Physical Exam Physical Exam: The patient is nonresponsive, normocephalic and atraumatic, lying in bed and in no acute distress. HEENT--PERRL, EOMI, mucous membranes and oropharynx dry. Neck--supple. No JVD. No bruits. Thyroid normal, trachea midline, no adenopathy. Heart--normal S1 and S2. No murmurs, rubs or gallops. Lungs--clear bilaterally, no respiratory distress, no accessory muscle use. Abdomen--normal bowel sounds and soft. Nontender. Nondistended. Extremities--no cyanosis or clubbing. No edema. Dermatologic--normal skin turgor, normal color, no abnormal lymph nodes, no rash. Neurologic--cranial nerves II through XII grossly intact. Rheumatologic--limited exam Psychiatric--nonresponsive Results & Data Results & Data ([facility]) Vital Signs (Past 12 Hours) Vital Signs Temp Pulse Resp BP Pulse Ox 04/14/20 22:12 81 15 04/14/20 21:31 83 16 100 04/14/20 21:30 96 H 21 125/71 100 04/14/20 21:01 83 17 100 04/14/20 21:00 80 20 121/70 100 04/14/20 20:51 84 17 122/70 100 04/14/20 20:30 83 21 99 04/14/20 20:07 97.9 F 80 18 144/84 H 99 04/14/20 20:00 89 19 98 04/14/20 19:36 95 H 18 100 04/14/20 19:30 95 H 13 144/84 H 100 Laboratory Results Laboratory Results WBC 12.03 K/uL (4.8-10.8) H 04/14/20 20:52 RBC 3.30 M/uL (4.7-6.1) L 04/14/20 20:52 Hgb 11.1 g/dL (14.0-18.0) L 04/14/20 20:52 Hct 36.3 % (42-52) L 04/14/20 20:52 MCV 110.0 fL (80-100) H 04/14/20 20:52 MCH 33.6 pg (25-34) 04/14/20 20:52 MCHC 30.6 g/dL (32-36) L 04/14/20 20: RDW Std Deviation 60.5 fL (36.4-46.3) H 04/14/20 20: RDW Coeff of Ezio 15.6 % (11.5-14.5) H 04/14/20 20:52 Plt Count 339 K/uL (130-400) 04/14/20 20: MPV 11.5 fL (7.4-10.4) H 04/14/20 20: Immature Gran % (Auto) 1.5 % 04/14/20 20:52 Neut % (Auto) 72.9 % 04/14/20 20:52 Lymph % (Auto) 10.8 % 04/14/20 20:52 [place] % (Auto) 14.7 % 04/14/20 20:52 Eos % (Auto) 0.0 % 04/14/20 20:52 Baso % (Auto) 0.1 % 04/14/20:52 Neut # (Auto) 8.77 K/uL (1.4-6.5) H 04/14/20 20:52 Lymph # (Auto) 1.30 K/uL (1.2-3.4) 04/14/20 20:52 [place] # (Auto) 1.77 K/uL (0.11-0.59) H 04/14/20 20:52 Eos # (Auto) 0.00 K/uL (0-0.5) 04/14/20 20:52 Baso # (Auto) 0.01 K/uL (0-0.2) 04/14/20: Immature Gran # (Auto) 0.18 K/uL (0.00-0.02) H 04/14/20 20:52 Macrocytosis Present 04/14/20 20:52 ABG pH 7.46 (7.35-7.45) H 04/14/20 20:52 ABG pCO2 37 mmHg (35-46) 04/14/20 20:52 ABG pO2 76 mmHg (80-95) L 04/14/20 20:52 ABG HCO3 26 mmol/L (19-24) H 04/14/20 20:52 ABG O2 Saturation 95.5 % (90-95) H 04/14/20 20:52 ABG Base Excess 2.3 mEq/L (-9-1.8) H 04/14/20 20:52 Ciaran Test Pos (Pos) 04/14/20 20:52 Barometric Pressure 735.2 mm/Hg 04/14/20 20:52 Oxygen Given ROOM AIR 04/14/20 20:52 Sodium 164 mmol/L (136-145) H* 04/14/20 20:10 Potassium 4.9 mmol/L (3.5-5.1) 04/14/20 20:10 Chloride 131 mmol/L (98-107) H 04/14/20 20:10 Carbon Dioxide 28 mmol/L (21-32) 04/14/20 20:10 Anion Gap 5.0 (3-11) 04/14/20 20:10 BUN 89 mg/dl (7-18) H 04/14/20 20:10 Creatinine 1.98 mg/dl (0.6-1.4) H 04/14/20 20:10 Est Cr Clr Drug Dosing 27.0 ml/min 04/14/20 20:10 Est GFR ( Amer) 38.5 04/14/20 20:10 Est GFR (Non-Af Amer) 33.2 04/14/20 20:10 BUN/Creatinine Ratio 45.2 (10-20) H 04/14/20 20:10 Glucose 137 mg/dl (70-99) H 04/14/20 20:10 Calcium 9.2 mg/dl (8.5-10.1) 04/14/20 20:10 Total Bilirubin 0.3 mg/dl (0.2-1) 04/14/20 20:10 AST 14 U/L (15-37) L 04/14/20 20:10 ALT < 6 U/L (12-78) L 04/14/20 20:10 Alkaline Phosphatase 145 U/L (45-117) H 04/14/20 20:10 Troponin I < 0.015 ng/ml (0-0.045) 04/14/20 20:10 C-Reactive Protein 2.41 mg/dl (0-0.29) H 04/14/20 20:10 Total Protein 9.4 gm/dl (6.4-8.2) H 04/14/20 20:10 Albumin 2.8 gm/dl (3.4-5.0) L 04/14/20 20:10 Globulin 6.6 gm/dl (2.5-4.0) H 04/14/20 20:10 Albumin/Globulin Ratio 0.4 (0.9-2) L 04/14/20 20:10 Lipase 308 U/L (73-393) 04/14/20 20:10 Procalcitonin < 0.05 ng/ml (0-0.5) 04/14/20 20:10 Digoxin 1.9 ng/ml (0.8-2.0) 04/14/20 20:10 Valproic Acid 43 mcg/ml (50-100) L 04/14/20 20:10 COVID-19 Eval Order Covid19 Done at [facility] 04/14/20 19:40 COVID-19 PCR POSITIVE (Negative) A* 04/14/20 19:[address] [facility] Patient: MELISSA SULTANA (Male) : 50 Status: ER Date: 04/14/20 22:09 Room #: History: weakness covid + Slices: 58 Priors: Tech: Justin Gage @ [phone] Exams: CT HEAD Contrast: Accession Numbers: [id number] Preliminary Findings Only See Final Report For Complete Findings CT HEAD: No ICH, mass effect or edema. No evidence of acute cortical stroke. Periventricular small vessel ischemic change. Visualized sinuses and mastoid air cells are clear. Radiologist: Stephen Bran M.D. Study ready at 22:14 and initial results transmitted at 22:19 *This report constitutes a preliminary interpretation only. Non-acute findings felt to be unrelated to the clinical presentation may not be discussed in this report. The study will be interpreted and a final report will be generated by the local Radiologist the following shift. To reach the hospital radiology department call [phone]. If a discrepancy is found between the preliminary and final interpretations of this study, please notify us via our Client Portal at [email or web address], under [email or web address] [email or web address].You can also fax this report with a description of the discrepancy, or include the final report, to our daytime fax number [phone].If faxing, please indicate the severity of discrepancy using one of the following categories: [ ] 1 - Agree/Informational [ ] 2 - Unlikely to Affect Management [ ] 3 - Possible Eventual Change of Management [ ] 4 - Probable Immediate Change of Management For all other patient related information, please fax us at [phone]. [id number] [facility] Patient: MELISSA SULTANA (Male) : 50 Status: ER Date: 04/14/20 22:10 Room #: History: weakness covid + Slices: 618 Priors: Tech: Justin Gage @ [phone] Exams: CT CHEST Without Contrast Contrast: Accession Numbers: [id number] Preliminary Findings Only See Final Report For Complete Findings CT CHEST Without Contrast: Mild pneumonitis in the right upper lobe with more confluent consolidation in the right lower lobe. Mild nodular infiltrate in the lingula. Some debris in the airway. Radiologist: Stephen Bran M.D. Study ready at 22:16 and initial results transmitted at 22:28 *This report constitutes a preliminary interpretation only. Non-acute findings felt to be unrelated to the clinical presentation may not be discussed in this report. The study will be interpreted and a final report will be generated by the local Radiologist the following shift. To reach the hospital radiology department call [phone]. If a discrepancy is found between the preliminary and final interpretations of this study, please notify us via our Client Portal at [email or web address], under [email or web address].You can also fax this report with a description of the discrepancy, or include the final report, to our daytime fax number [phone].If faxing, please indicate the severity of discrepancy using one of the following categories: [ ] 1 - Agree/Informational [ ] 2 - Unlikely to Affect Management [ ] 3 - Possible Eventual Change of Management [ ] 4 - Probable Immediate Change of Management For all other patient related information, please fax us at [phone]. [id number] Code Status & VTE Plan Code Status DNR/DNI VTE Prophylaxis Plan VTE Prophylaxis will be ordered: Yes PG Care Time/CCT Total # of Minutes Spent Total Time Spent with Patient: Total time spent is greater than 50% in coordination of care (as documented) at patient's floor/unit and/or counseling patient: Coding Level of Care Code 01995 Initial Inpt Care Lvl 3 Diagnoses Pneumonia due to COVID-19 virus U07.1; J12.89 Acute hypernatremia E87.0 Seizure disorder G40.909 Paroxysmal atrial fibrillation I48.0 Parkinson disease G20 Dementia F03.90 Acute kidney injury superimposed on chronic kidney disease N17.9; N18.9
[2020-04-15] MEDS ORDERED: ONDANSETRON INJ 2 MG/ML 2 ML VIAL IV PRN (01:29)
[2020-04-15] MEDS ORDERED: SODIUM CHLORIDE 0.45 % 1,000 ML IV SCH (01:29)
[2020-04-15] MEDS ORDERED: PIPERACILL/TAZOBAC CONSULT ACTIVE PRN (01:29)
[2020-04-15] MEDS ORDERED: DEXAMETHASONE SOD INJ 10 MG/ML VIAL IV ONE (01:29)
[2020-04-15] MEDS ORDERED: ENOXAPARIN 1.5 MG/KG SC SCH (01:29)
[2020-04-15] MEDS ORDERED: VANCOMYCIN CONSULT ACTIVE PRN (01:29)
[2020-04-15] MEDS ORDERED: DEXAMETHASONE SOD PHOSPHATE 10 MG in SYRINGE 0 ML IV ONE (01:45)
[2020-04-15] MEDS ORDERED: VANCOMYCIN HCL 1,250 MG in SODIUM CHLORIDE 0.9% 250 ML IV ONE (02:00)
[2020-04-15] MEDS ORDERED: PIPERACILLIN/TAZOBACTAM 3.375 GM in DEXTROSE 5% 100 ML IV SCH (02:00)
[2020-04-15] MEDS ORDERED: INFLUENZA VIRUS QUAD VACCINE 0.5 ML SYR IM ONE (04:21)
[2020-04-15] MEDS ORDERED: PNEUMOCOCCAL ADMINISTRATION CHARGE ONE (04:21)
[2020-04-15] MEDS ORDERED: PNEUMOCOCCAL POLYSACCHARIDES 25 MCG/0.5 ML VIAL/SYR IM ONE (04:21)
[2020-04-15] MEDS ORDERED: INFLUENZA ADMINISTRATION CHARGE ONE (04:21)
--- NOTE | 2020-04-15 06:59 | CT Scan Report ---
CT head/brain wo con CLINICAL HISTORY: 70 years-old Male with weakness, COVID+. Acute weakness TECHNIQUE: Multiple axial CT images of the head were obtained without contrast. A dose lowering tech nique was utilized adhering to the principles of ALARA. COMPARISON: None. FINDINGS: No acute intracranial hemorrhage, midline shift, intracranial mass, hydrocephalus, territorial ischem ia or abnormal extra-axial collection. Age-related involutional changes with ex vacuo ventriculomegal y. Patchy white matter hypodensities suggest chronic microvascular ischemic disease. Cerebral vascula r calcifications. The calvarium is intact. Mild mucosal thickening of the paranasal sinuses. Trace left mastoid effusi on. Soft tissues are unremarkable. IMPRESSION: ACT 112: Negative or not required by law. The above report was generated using voice recognition software. It may contain grammatical, syntax o r spelling errors. Electronically signed by: Edu Odom M.D. 04/15/2020 6:57 AM
--- NOTE | 2020-04-15 07:28 | CT Scan Report ---
CT chest wo con CLINICAL HISTORY: Respiratory difficulty. Covid positive patient. COMPARISON STUDY: Chest x-ray dated 04/14/2020, CT scan dated 02/12/2018 CT DOSE: 851.39 mGy.cm TECHNIQUE: CT of the thorax was performed from the thoracic inlet to the lung bases. Images are revi ewed in the axial, sagittal, and coronal planes. IV contrast was not administered for this examinatio n. A dose lowering technique was utilized adhering to the principles of ALARA. FINDINGS: Thyroid: Imaged portions of the thyroid gland are normal in appearance. Thoracic aorta: The thoracic aorta is normal in course and caliber, noting standard 3 vessel arch tati esme. Heart: The heart is normal in size. There are coronary artery calcifications. Lungs and pleural spaces: There are right basilar airspace opacities, atelectatic versus infectious/i nflammatory. There are fluffy airspace opacities within the lingula, consistent with a pneumonitis. T here are minimal peripheral airspace opacities within the right upper lobe suggestive a pneumonitis. There is layering debris within the trachea. Mediastinum: There is no evidence of pathologic mediastinal lymphadenopathy Candy: There is no evidence of pathologic hilar adenopathy given the limitations of a noncontrast stud y Axilla: There is no evidence of pathologic axillary lymphadenopathy Upper abdomen: There is a partially visualized right renal cyst. Skeletal structures: No destructive lesions are visualized. There are old rib deformities. IMPRESSION: 1. Mild airspace opacities within the lingula and right upper lobe, suspicious for a pneumonitis. Dep endent right basilar airspace opacities, atelectatic versus infectious/inflammatory. 2. Layering debris within the trachea. ACT 112: Negative or not required by law. Electronically signed by: Yrn Dixon M.D. 04/15/2020 7:27 AM
[2020-04-15 07:35] LABS: INR 1.2 (0.9-1.1); Partial Thromboplastin Ratio 0.8; Partial Thromboplastin Time 22.9 Seconds (21.0-31.0); Prothrombin Time 12.1 Seconds (9.0-12.0)
[2020-04-15 08:04] LABS: Albumin Globulin Ratio 0.4 (0.9-2); Albumin Level 2.5 gm/dl (3.4-5.0); BUN Creatinine Ratio 46.8 (10-20); Bilirubin,Total 0.5 mg/dl (0.2-1); Calcium 8.7 mg/dl (8.5-10.1); Creatinine Clr Calc Pharmacy 31.6 ml/min; Est GFR (African American) 46.3; Magnesium 3.5 mg/dl (1.8-2.4); Potassium 4.7 mmol/L (3.5-5.1); Total Protein 8.5 gm/dl (6.4-8.2)
[2020-04-15 08:23] LABS: Hematocrit (blood only) 36.4 % (42-52); Hemoglobin 10.5 g/dL (14.0-18.0); Mean Corpuscular Hemoglobin 31.1 pg (25-34); Mean Corpuscular Hgb Conc 28.8 g/dL (32-36); Mean Corpuscular Volume 107.7 fL (80-100); Platelet Count 290 K/uL (130-400); Red Blood Count 3.38 M/uL (4.7-6.1); White Blood Count 12.07 K/uL (4.8-10.8)
[2020-04-15 08:39] LABS: Eosinophils # (auto) 0.01 K/uL (0-0.5); Eosinophils % (auto) 0.1 %; Immature Granulocytes # (auto) 0.15 K/uL (0.00-0.02); Immature Granulocytes % (auto) 1.2 %; Lymphocytes # (auto) 1.41 K/uL (1.2-3.4); Lymphocytes % (auto) 11.7 %; Monocytes # (auto) 0.63 K/uL (0.11-0.59); Monocytes % (auto) 5.2 %; Neutrophils # (auto) 9.87 K/uL (1.4-6.5); Neutrophils % (auto) 81.8 %
[2020-04-15] MEDS ORDERED: DEXAMETHASONE SOD INJ 10 MG/ML VIAL IV SCH (09:00)
[2020-04-15] MEDS ORDERED: ENOXAPARIN 100 MG/1ML SYR SQ SCH (09:00)
[2020-04-15] MEDS: DEXTROSE 5% 1,000 ML IV SCH ×2 (09:25→18:16)
[2020-04-15] MEDS: PIPERACILLIN/TAZOBACTAM 3.375 GM in DEXTROSE 5% 100 ML IV SCH ×3 (09:27→23:50)
[2020-04-15] MEDS: VALPROATE SOD 500 MG in DEXTROSE 5% 50 ML IV SCH ×2 (09:38→20:27)
--- NOTE | 2020-04-15 12:16 | Hospitalist Progress Note ---
Date of Service April 15, 2020 Assessment & Plan (1) Pneumonia due to COVID-19 virus: Place on Decadron 6 mg IV daily stop Vanco Zosyn 3.375 mg IV every 8 hours Lovenox 90 mg subcu every 24 hours for reported D-dimer greater than 20,000. (2) Acute hypernatremia: Sodium level upon admission 164, up to 166, down to 165 now due to free water deficit with dehydration continue D5W at 100cc/hr Creatinine 1.5 Repeat BMP and magnesium level in a.m. (3) Seizure disorder: Presently is on divalproex 500 mg p.o. twice daily. Changed to IV dosing since he is not taking PO (4) Paroxysmal atrial fibrillation: Change oral digoxin 125 mcg daily to IV. Dig level upon admission 1.9, with range 0.8-2.0. (5) Parkinson disease: hold meds until awake and alert per his brother, he is confused and agitated at baseline (6) Dementia: (7) Acute kidney injury superimposed on chronic kidney disease: Creatinine 1.98 upon admission, improved to 1.5 with fluids As noted above, has been placed on IV fluids, with serial laboratories every morning Admission and Anticipated Discharge Date Admission Date: April 14, 2020 Subjective patient is non responsive for me today reviewed chart, reviewed labs, Na is quite high at 166, repeat 165 changed him to D5W this morning called his brother who is the primary contact he says at baseline he is non-responsive, demented discussed that we will treat with free water would recommend POLST prior to discharge as this will likely happen again, inappropriate to keep coming to hospital for dehydration Review of Systems Review of Systems: Unobtainable due to cognitive status Physical Exam Constitutional: WD/WN, vitals as above + thin and + frail appearing ENMT: Nose: + dry nasal mucous membranes Mouth: + dry oral mucous membranes Neck: trachea midline, no thyromegaly Respiratory: normal respiratory effort, lungs clear to auscultation Cardiovascular: RRR, no murmur, no edema Gastrointestinal (Abdomen): normal bowel sounds, soft, nontender, no hepatosplenomegaly Musculoskeletal: Head/Neck/Chest: normocephalic, head atraumatic and neck supple Extremities: + abnormal strength (generalized weakness) and + muscle atrophy; no cyanosis, no clubbing and no petechiae Skin: no rashes, warm and dry Neurologic: moves all extremities, awake and + confused; no focal motor deficits Psychiatric: Orientation: alert; + not oriented x 3 Lymphatic: no cervical or axillary lymphadenopathy Results & Data Results & Data ([facility]) Vital Signs (Past 12 Hours) Vital Signs Temp Pulse Resp BP Pulse Ox 04/15/20 09:13 36.4 C L 80 20 156/77 H 100 04/15/20 03:27 36.5 C 88 12 123/75 100 Laboratory Results Laboratory Results - last 24 hr 04/14/20 04/14/20 04/14/20 19:40 19:40 20:10 WBC RBC Hgb Hct MCV MCH MCHC RDW Std Deviation RDW Coeff of Ezio Plt Count MPV Immature Gran % (Auto) Neut % (Auto) Lymph % (Auto) [place] % (Auto) Eos % (Auto) Baso % (Auto) Neut # (Auto) Lymph # (Auto) [place] # (Auto) Eos # (Auto) Baso # (Auto) Immature Gran # (Auto) Macrocytosis PT Pending INR Pending APTT PTT Ratio D-Dimer Pending ABG pH ABG pCO2 ABG pO2 ABG HCO3 ABG O2 Saturation ABG Base Excess Ciaran Test Barometric Pressure Oxygen Given Sodium Potassium Chloride Carbon Dioxide Anion Gap BUN Creatinine Est Cr Clr Drug Dosing Est GFR ( Amer) Est GFR (Non-Af Amer) BUN/Creatinine Ratio Glucose Calcium Magnesium Total Bilirubin AST ALT Alkaline Phosphatase Troponin I C-Reactive Protein Total Protein Albumin Globulin Albumin/Globulin Ratio Lipase Procalcitonin Nasal Screen MRSA (PCR) Digoxin Valproic Acid COVID-19 Eval Order Covid19 Done at [facility] COVID-19 PCR POSITIVE A* 04/14/20 04/14/20 04/14/20 20:10 20:10 20:10 WBC RBC Hgb Hct MCV MCH MCHC RDW Std Deviation RDW Coeff of Ezio Plt Count MPV Immature Gran % (Auto) Neut % (Auto) Lymph % (Auto) [place] % (Auto) Eos % (Auto) Baso % (Auto) Neut # (Auto) Lymph # (Auto) [place] # (Auto) Eos # (Auto) Baso # (Auto) Immature Gran # (Auto) Macrocytosis PT INR APTT PTT Ratio D-Dimer ABG pH ABG pCO2 ABG pO2 ABG HCO3 ABG O2 Saturation ABG Base Excess Ciaran Test Barometric Pressure Oxygen Given Sodium 164 H* Potassium 4.9 Chloride 131 H Carbon Dioxide 28 Anion Gap 5.0 BUN 89 H Creatinine 1.98 H Est Cr Clr Drug Dosing 27.0 Est GFR ( Amer) 38.5 Est GFR (Non-Af Amer) 33.2 BUN/Creatinine Ratio 45.2 H Glucose 137 H Calcium 9.2 Magnesium Total Bilirubin 0.3 AST 14 L ALT < 6 L Alkaline Phosphatase 145 H Troponin I < 0.015 C-Reactive Protein 2.41 H Total Protein 9.4 H Albumin 2.8 L Globulin 6.6 H Albumin/Globulin Ratio 0.4 L Lipase 308 Procalcitonin < 0.05 Nasal Screen MRSA (PCR) Digoxin 1.9 Valproic Acid 43 L COVID-19 Eval Order COVID-19 PCR 04/14/20 04/14/20 04/15/20 20:52 20:52 06:54 WBC 12.03 H 12.07 H RBC 3.30 L 3.38 L Hgb 11.1 L 10.5 L Hct 36.3 L 36.4 L MCV 110.0 H 107.7 H MCH 33.6 31.1 MCHC 30.6 L 28.8 L RDW Std Deviation 60.5 H RDW Coeff of Ezio 15.6 H Plt Count 339 290 MPV 11.5 H Immature Gran % (Auto) 1.5 1.2 Neut % (Auto) 72.9 81.8 Lymph % (Auto) 10.8 11.7 [place] % (Auto) 14.7 5.2 Eos % (Auto) 0.0 0.1 Baso % (Auto) 0.1 0.0 Neut # (Auto) 8.77 H 9.87 H Lymph # (Auto) 1.30 1.41 [place] # (Auto) 1.77 H 0.63 H Eos # (Auto) 0.00 0.01 Baso # (Auto) 0.01 0.00 Immature Gran # (Auto) 0.18 H 0.15 H Macrocytosis Present PT INR APTT PTT Ratio D-Dimer ABG pH 7.46 H ABG pCO2 37 ABG pO2 76 L ABG HCO3 26 H ABG O2 Saturation 95.5 H ABG Base Excess 2.3 H Ciaran Test Pos Barometric Pressure 735.2 Oxygen Given ROOM AIR Sodium Potassium Chloride Carbon Dioxide Anion Gap BUN Creatinine Est Cr Clr Drug Dosing Est GFR ( Amer) Est GFR (Non-Af Amer) BUN/Creatinine Ratio Glucose Calcium Magnesium Total Bilirubin AST ALT Alkaline Phosphatase Troponin I C-Reactive Protein Total Protein Albumin Globulin Albumin/Globulin Ratio Lipase Procalcitonin Nasal Screen MRSA (PCR) Digoxin Valproic Acid COVID-19 Eval Order COVID-19 PCR 04/15/20 04/15/20 04/15/20 06:54 06:54 Unknown WBC RBC Hgb Hct MCV MCH MCHC RDW Std Deviation RDW Coeff of Ezio Plt Count MPV Immature Gran % (Auto) Neut % (Auto) Lymph % (Auto) [place] % (Auto) Eos % (Auto) Baso % (Auto) Neut # (Auto) Lymph # (Auto) [place] # (Auto) Eos # (Auto) Baso # (Auto) Immature Gran # (Auto) Macrocytosis PT 12.1 H INR 1.2 H APTT 22.9 PTT Ratio 0.8 D-Dimer ABG pH ABG pCO2 ABG pO2 ABG HCO3 ABG O2 Saturation ABG Base Excess Ciaran Test Barometric Pressure Oxygen Given Sodium 166 H* Potassium 4.7 Chloride 136 H Carbon Dioxide 27 Anion Gap 4.0 BUN 80 H Creatinine 1.70 H Est Cr Clr Drug Dosing 31.6 Est GFR ( Amer) 46.3 Est GFR (Non-Af Amer) 40.0 BUN/Creatinine Ratio 46.8 H Glucose 143 H Calcium 8.7 Magnesium 3.5 H Total Bilirubin 0.5 AST 17 ALT 9 L Alkaline Phosphatase 131 H Troponin I C-Reactive Protein Total Protein 8.5 H Albumin 2.5 L Globulin 6.0 H Albumin/Globulin Ratio 0.4 L Lipase Procalcitonin Nasal Screen MRSA (PCR) Negative Digoxin Valproic Acid COVID-19 Eval Order COVID-19 PCR Medications Administered Current Inpatient Medications Enoxaparin Sodium (Enoxaparin 80 Mg/0.8 Ml Syr) 80 mg SQ Q24H ALBERTO Stop: 05/16/20 08:59 Dexamethasone Sodium Phosphate (6 mg/ Syringe) 1.5 mls @ 1 mls/min IV QAM ALBERTO Stop: 05/16/20 08:59 Piperacillin Sod/Tazobactam (Sod 3.375 gm/ Dextrose) 115 mls @ 28.75 mls/hr IV Q8H ALBERTO; Protocol Stop: 04/22/20 07:59 Last Admin: 04/15/20 09:27 Dose: 28.8 mls/hr Documented by: Digoxin 125 mcg/ Syringe 10 mls @ 2 mls/min IV DAILY@1600 ALBERTO Stop: 05/16/20 15:59 Valproic Acid 500 mg/ Dextrose 55 mls @ 55 mls/hr IV BID ALBERTO Stop: 05/15/20 08:59 Last Admin: 04/15/20 09:38 Dose: 55 mls/hr Documented by: Dextrose (D5w) 1,000 mls @ 100 mls/hr IV .Q10H ALBERTO Stop: 05/15/20 08:29 Last Admin: 04/15/20 09:25 Dose: 100 mls/hr Documented by: Miscellaneous Information (Piperacill/Tazobac Consult Active) 1 ea N/A UD PRN PRN Reason: Consult Stop: 05/15/20 01:28 Ondansetron HCl (Ondansetron Inj 2 Mg/Ml 2 Ml Vial) 4 mg IV Q6H PRN PRN Reason: Nausea Stop: 05/15/20 01:28 PG Care Time/CCT Total # of Minutes Spent Total Time Spent with Patient: Total time spent is greater than 50% in coordination of care (as documented) at patient's floor/unit and/or counseling patient: Coding Level of Care Code 43581 Subseq Hosp Care Lvl 3 Diagnoses Pneumonia due to COVID-19 virus U07.1; J12.89 Acute hypernatremia E87.0 Seizure disorder G40.909 Paroxysmal atrial fibrillation I48.0 Parkinson disease G20 Dementia F03.90 Acute kidney injury superimposed on chronic kidney disease N17.9; N18.9
[2020-04-15 15:12] LABS: BUN Creatinine Ratio 50.2 (10-20); Calcium 8.4 mg/dl (8.5-10.1); Creatinine Clr Calc Pharmacy 35.5 ml/min; Est GFR (African American) 53.5; Est GFR (Non-African American) 46.1; Potassium 4.2 mmol/L (3.5-5.1)
[2020-04-16] MEDS: DEXTROSE 5% 1,000 ML IV SCH ×3 (04:10→23:54)
--- NOTE | 2020-04-16 05:04 | Electrocardiogram Report ---
Test Reason : Blood Pressure : / mmHG Vent. Rate : 099 BPM Atrial Rate : 099 BPM P-R Int : 142 ms QRS Dur : 088 ms QT Int : 334 ms P-R-T Axes : 083 024 -75 degrees QTc Int : 428 ms Poor data quality, interpretation may be adversely affected Normal sinus rhythm Abnormal ECG When compared with ECG of 05-JUN-2018 13:40, ST now depressed in Inferior leads ST now depressed in Anterolateral leads T wave inversion now evident in Inferior leads T wave inversion now evident in Anterolateral leads Confirmed by Kilo Covington ([id number]) on 04/16/2020 5:04:25 AM Referred By: REFERRED SELF Confirmed By:Kilo Covington
[2020-04-16 06:22] LABS: INR 1.2 (0.9-1.1); Partial Thromboplastin Ratio 0.9; Partial Thromboplastin Time 25.4 Seconds (21.0-31.0); Prothrombin Time 12.3 Seconds (9.0-12.0)
[2020-04-16 06:50] LABS: Albumin Globulin Ratio 0.4 (0.9-2); Albumin Level 2.3 gm/dl (3.4-5.0); BUN Creatinine Ratio 39.4 (10-20); Bilirubin,Total 0.4 mg/dl (0.2-1); Calcium 8.6 mg/dl (8.5-10.1); Creatinine Clr Calc Pharmacy 34.2 ml/min; Globulin 5.4 gm/dl (2.5-4.0); Magnesium 3.2 mg/dl (1.8-2.4); Potassium 3.8 mmol/L (3.5-5.1); Total Protein 7.7 gm/dl (6.4-8.2)
[2020-04-16 07:01] LABS: Basophils # (auto) 0.01 K/uL (0-0.2); Basophils % (auto) 0.1 %; Hematocrit (blood only) 33.7 % (42-52); Hemoglobin 9.9 g/dL (14.0-18.0); Immature Granulocytes % (auto) 0.8 %; Lymphocytes # (auto) 2.41 K/uL (1.2-3.4); Lymphocytes % (auto) 18.7 %; Mean Corpuscular Hemoglobin 31.4 pg (25-34); Mean Corpuscular Hgb Conc 29.4 g/dL (32-36); Mean Platelet Volume 11.7 fL (7.4-10.4); Monocytes # (auto) 1.14 K/uL (0.11-0.59); Monocytes % (auto) 8.8 %; Neutrophils # (auto) 9.24 K/uL (1.4-6.5); Neutrophils % (auto) 71.6 %; Platelet Count 298 K/uL (130-400); RDW Coefficient of Variation 15.3 % (11.5-14.5); RDW Standard Deviation 59.7 fL (36.4-46.3); Red Blood Count 3.15 M/uL (4.7-6.1)
[2020-04-16] MEDS ORDERED: ENOXAPARIN 80 MG/0.8 ML SYR SQ SCH (09:00)
[2020-04-16] MEDS: VALPROATE SOD 500 MG in DEXTROSE 5% 50 ML IV SCH ×2 (10:01→22:48)
[2020-04-16] MEDS: DEXAMETHASONE SOD PHOSPHATE 6 MG in SYRINGE 0 ML IV SCH (10:01)
[2020-04-16] MEDS: PIPERACILLIN/TAZOBACTAM 3.375 GM in DEXTROSE 5% 100 ML IV SCH ×3 (10:01→23:54)
--- NOTE | 2020-04-16 14:56 | Hospitalist Progress Note ---
Date of Service April 16, 2020 Assessment & Plan (1) Pneumonia due to COVID-19 virus: Place on Decadron 6 mg IV daily Zosyn 3.375 mg IV every 8 hours for bacterial pneumonia no need for full anticoagulation, reduce Lovenox to 40 q12 prognosis is guarded at this time no respiratory distress but he won't eat/drink (2) Acute hypernatremia: Sodium level upon admission 164, up to 166 down to 160 today, repeat this afternoon due to free water deficit with dehydration continue D5W at 100cc/hr Creatinine 1.57 which is baseline Repeat BMP and magnesium level in a.m. (3) Seizure disorder: Presently is on divalproex 500 mg p.o. twice daily. Changed to IV dosing since he is not taking PO (4) Paroxysmal atrial fibrillation: Change oral digoxin 125 mcg daily to IV. Dig level upon admission 1.9, with range 0.8-2.0. (5) Parkinson disease: hold meds until awake and alert per his brother, he is confused and agitated at baseline (6) Dementia: (7) Acute kidney injury superimposed on chronic kidney disease: Creatinine 1.98 upon admission, improved to 1.5 with fluids As noted above, has been placed on IV fluids, with serial laboratories every morning Admission and Anticipated Discharge Date Admission Date: April 14, 2020 Subjective patient remains unresponsive, not eating or drinking well remains on D5W, Na down to 160 from 165 WBC down to 12, remains on antibiotics for pneumonia Review of Systems Review of Systems: Unobtainable due to cognitive status and Unobtainable due to reduced consciousness Physical Exam Constitutional: WD/WN, vitals as above + thin and + frail appearing ENMT: Nose: + dry nasal mucous membranes Mouth: + dry oral mucous membranes Neck: trachea midline, no thyromegaly Respiratory: normal respiratory effort, lungs clear to auscultation Cardiovascular: RRR, no murmur, no edema Gastrointestinal (Abdomen): normal bowel sounds, soft, nontender, no hepatosplenomegaly Musculoskeletal: Head/Neck/Chest: normocephalic, head atraumatic and neck supple Extremities: + abnormal strength (generalized weakness) and + muscle atrophy; no cyanosis, no clubbing and no petechiae Skin: no rashes, warm and dry Neurologic: moves all extremities, awake and + confused; no focal motor deficits Psychiatric: Orientation: alert; + not oriented x 3 Lymphatic: no cervical or axillary lymphadenopathy Results & Data Results & Data ([facility]) Vital Signs (Past 12 Hours) Vital Signs Temp Pulse Resp BP Pulse Ox Pulse Ox 04/16/20 10:10 100 04/16/20 09:55 36.4 C L 64 18 138/67 100 Laboratory Results Laboratory Results - last 24 hr 04/15/20 04/16/20 04/16/20 14:12 05:57 05:57 WBC 12.90 H RBC 3.15 L Hgb 9.9 L Hct 33.7 L MCV 107.0 H MCH 31.4 MCHC 29.4 L RDW Std Deviation 59.7 H RDW Coeff of Ezio 15.3 H Plt Count 298 MPV 11.7 H Immature Gran % (Auto) 0.8 Neut % (Auto) 71.6 Lymph % (Auto) 18.7 Ransom % (Auto) 8.8 Eos % (Auto) 0.0 Baso % (Auto) 0.1 Neut # (Auto) 9.24 H Lymph # (Auto) 2.41 Ransom # (Auto) 1.14 H Eos # (Auto) 0.00 Baso # (Auto) 0.01 Immature Gran # (Auto) 0.10 H PT 12.3 H INR 1.2 H APTT 25.4 PTT Ratio 0.9 Sodium 165 H* Potassium 4.2 Chloride 134 H Carbon Dioxide 24 Anion Gap 7.0 BUN 76 H Creatinine 1.51 H Est Cr Clr Drug Dosing 35.5 Est GFR ( Amer) 53.5 Est GFR (Non-Af Amer) 46.1 BUN/Creatinine Ratio 50.2 H Glucose 186 H Calcium 8.4 L Magnesium Total Bilirubin AST ALT Alkaline Phosphatase Total Protein Albumin Globulin Albumin/Globulin Ratio 04/16/20 05:57 WBC RBC Hgb Hct MCV MCH MCHC RDW Std Deviation RDW Coeff of Ezio Plt Count MPV Immature Gran % (Auto) Neut % (Auto) Lymph % (Auto) Ransom % (Auto) Eos % (Auto) Baso % (Auto) Neut # (Auto) Lymph # (Auto) Ransom # (Auto) Eos # (Auto) Baso # (Auto) Immature Gran # (Auto) PT INR APTT PTT Ratio Sodium 160 H* Potassium 3.8 Chloride 130 H Carbon Dioxide 27 Anion Gap 4.0 BUN 62 H Creatinine 1.57 H Est Cr Clr Drug Dosing 34.2 Est GFR ( Amer) 51.0 Est GFR (Non-Af Amer) 44.0 BUN/Creatinine Ratio 39.4 H Glucose 130 H Calcium 8.6 Magnesium 3.2 H Total Bilirubin 0.4 AST 15 ALT 11 L Alkaline Phosphatase 114 Total Protein 7.7 Albumin 2.3 L Globulin 5.4 H Albumin/Globulin Ratio 0.4 L Medications Administered Current Inpatient Medications Enoxaparin Sodium (Enoxaparin 80 Mg/0.8 Ml Syr) 80 mg SQ Q24H [facility] Stop: 05/16/20 08:59 Last Admin: 04/16/20 10:02 Dose: 80 mg Documented by: Dexamethasone Sodium Phosphate (6 mg/ Syringe) 1.5 mls @ 1 mls/min IV QAM [facility] Stop: 05/16/20 08:59 Last Admin: 04/16/20 10:01 Dose: 1 mls/min Documented by: Piperacillin Sod/Tazobactam (Sod 3.375 gm/ Dextrose) 115 mls @ 28.75 mls/hr IV Q8H [facility]; Protocol Stop: 04/22/20 07:59 Last Infusion: 04/16/20 14:08 Dose: Infused Documented by: Digoxin 125 mcg/ Syringe 10 mls @ 2 mls/min IV DAILY@1600 [facility] Stop: 05/16/20 15:59 Valproic Acid 500 mg/ Dextrose 55 mls @ 55 mls/hr IV BID [facility] Stop: 05/15/20 08:59 Last Infusion: 04/16/20 11:09 Dose: Infused Documented by: Dextrose (D5w) 1,000 mls @ 100 mls/hr IV .Q10H [facility] Stop: 05/15/20 08:29 Last Admin: 04/16/20 14:12 Dose: 100 mls/hr Documented by: Miscellaneous Information (Piperacill/Tazobac Consult Active) 1 ea N/A UD PRN PRN Reason: Consult Stop: 05/15/20 01:28 Ondansetron HCl (Ondansetron Inj 2 Mg/Ml 2 Ml Vial) 4 mg IV Q6H PRN PRN Reason: Nausea Stop: 05/15/20 01:28 PG Care Time/CCT Total # of Minutes Spent Total Time Spent with Patient: Total time spent is greater than 50% in coordination of care (as documented) at patient's floor/unit and/or counseling patient: Coding Level of Care Code 01673 Subseq Hosp Care Lvl 2 Diagnoses Pneumonia due to COVID-19 virus U07.1; J12.89 Acute hypernatremia E87.0 Seizure disorder G40.909 Paroxysmal atrial fibrillation I48.0 Parkinson disease G20 Dementia F03.90 Acute kidney injury superimposed on chronic kidney disease N17.9; N18.9
[2020-04-16 16:22] LABS: Calcium 8.3 mg/dl (8.5-10.1); Creatinine Clr Calc Pharmacy 40.7 ml/min; Est GFR (African American) 62.9; Est GFR (Non-African American) 54.3; Potassium 3.9 mmol/L (3.5-5.1)
[2020-04-16] MEDS: DIGOXIN 125 MCG in SYRINGE 9.5 ML IV SCH (18:25)
[2020-04-16] MEDS: ENOXAPARIN INJ 40 MG/0.4 ML SYR SQ SCH (21:40)
[2020-04-17 06:31] LABS: INR 1.2 (0.9-1.1); Partial Thromboplastin Time 27.8 Seconds (21.0-31.0); Prothrombin Time 12.9 Seconds (9.0-12.0)
[2020-04-17 06:38] LABS: Eosinophils # (auto) 0.01 K/uL (0-0.5); Eosinophils % (auto) 0.1 %; Hematocrit (blood only) 32.2 % (42-52); Hemoglobin 9.5 g/dL (14.0-18.0); Immature Granulocytes # (auto) 0.15 K/uL (0.00-0.02); Immature Granulocytes % (auto) 1.5 %; Lymphocytes # (auto) 2.36 K/uL (1.2-3.4); Lymphocytes % (auto) 23.6 %; Mean Corpuscular Hemoglobin 31.3 pg (25-34); Mean Corpuscular Hgb Conc 29.5 g/dL (32-36); Mean Corpuscular Volume 105.9 fL (80-100); Monocytes # (auto) 0.93 K/uL (0.11-0.59); Monocytes % (auto) 9.3 %; Neutrophils # (auto) 6.56 K/uL (1.4-6.5); Neutrophils % (auto) 65.5 %; Platelet Count 278 K/uL (130-400); Red Blood Count 3.04 M/uL (4.7-6.1); White Blood Count 10.01 K/uL (4.8-10.8)
[2020-04-17 06:48] LABS: Albumin Globulin Ratio 0.4 (0.9-2); Albumin Level 2.1 gm/dl (3.4-5.0); BUN Creatinine Ratio 32.9 (10-20); Bilirubin,Total 0.3 mg/dl (0.2-1); Calcium 8.2 mg/dl (8.5-10.1); Creatinine Clr Calc Pharmacy 48.8 ml/min; Est GFR (African American) 78.4; Est GFR (Non-African American) 67.7; Magnesium 2.9 mg/dl (1.8-2.4); Potassium 3.6 mmol/L (3.5-5.1); Total Protein 7.1 gm/dl (6.4-8.2)
[2020-04-17] MEDS: VALPROATE SOD 500 MG in DEXTROSE 5% 50 ML IV SCH ×2 (08:29→19:45)
[2020-04-17] MEDS: PIPERACILLIN/TAZOBACTAM 3.375 GM in DEXTROSE 5% 100 ML IV SCH ×3 (08:29→23:24)
[2020-04-17] MEDS: DEXAMETHASONE SOD PHOSPHATE 6 MG in SYRINGE 0 ML IV SCH (08:30)
[2020-04-17] MEDS: DEXTROSE 5% 1,000 ML IV SCH ×2 (08:50→16:02)
[2020-04-17] MEDS: ENOXAPARIN INJ 40 MG/0.4 ML SYR SQ SCH ×2 (09:14→19:45)
[2020-04-17] MEDS: DIGOXIN 125 MCG in SYRINGE 9.5 ML IV SCH (16:01)
--- NOTE | 2020-04-17 23:56 | Hospitalist Progress Note ---
Date of Service April 17, 2020 Assessment & Plan (1) Pneumonia due to COVID-19 virus: Place on Decadron 6 mg IV daily Zosyn 3.375 mg IV every 8 hours for bacterial pneumonia no need for full anticoagulation, reduce Lovenox to 40 q12 prognosis is guarded at this time no respiratory distress but he won't eat/drink reassess tomorrow and will call patient's brother (2) Acute hypernatremia: Sodium level upon admission 164, up to 166 down to 154 today due to free water deficit with dehydration continue D5W at 100cc/hr Creatinine at baseline Repeat BMP and magnesium level in a.m. (3) Seizure disorder: Presently is on divalproex 500 mg p.o. twice daily. Changed to IV dosing since he is not taking PO (4) Paroxysmal atrial fibrillation: Change oral digoxin 125 mcg daily to IV. Dig level upon admission 1.9, with range 0.8-2.0. (5) Parkinson disease: hold meds until awake and alert per his brother, he is confused and agitated at baseline (6) Dementia: (7) Acute kidney injury superimposed on chronic kidney disease: Creatinine 1.98 upon admission, improved to 1.5 with fluids As noted above, has been placed on IV fluids, with serial laboratories every morning Admission and Anticipated Discharge Date Admission Date: April 14, 2020 Subjective patient still laying in bed, no PO intake Na coming down slowly with D5W no ROS possible, non-verbal Review of Systems Review of Systems: Unobtainable due to cognitive status Physical Exam Constitutional: WD/WN, vitals as above + thin and + frail appearing ENMT: Nose: + dry nasal mucous membranes Mouth: + dry oral mucous membranes Neck: trachea midline, no thyromegaly Respiratory: normal respiratory effort, lungs clear to auscultation Cardiovascular: RRR, no murmur, no edema Gastrointestinal (Abdomen): normal bowel sounds, soft, nontender, no hepatosplenomegaly Musculoskeletal: Head/Neck/Chest: normocephalic, head atraumatic and neck supple Extremities: + abnormal strength (generalized weakness) and + muscle atrophy; no cyanosis, no clubbing and no petechiae Skin: no rashes, warm and dry Neurologic: moves all extremities, awake and + confused; no focal motor deficits Psychiatric: Orientation: alert; + not oriented x 3 Lymphatic: no cervical or axillary lymphadenopathy Results & Data Results & Data ([facility]) Vital Signs (Past 12 Hours) Vital Signs Temp Pulse Pulse Resp BP Pulse Ox 04/17/20 23:31 36.7 C 61 143/65 H 98 04/17/20 16:01 74 04/17/20 14:21 36.5 C 65 16 127/70 95 Laboratory Results Laboratory Results - last 24 hr 04/17/20 04/17/20 04/17/20 05:36 05:36 05:36 WBC 10.01 RBC 3.04 L Hgb 9.5 L Hct 32.2 L MCV 105.9 H MCH 31.3 MCHC 29.5 L Plt Count 278 Immature Gran % (Auto) 1.5 Neut % (Auto) 65.5 Lymph % (Auto) 23.6 [place] % (Auto) 9.3 Eos % (Auto) 0.1 Baso % (Auto) 0.0 Neut # (Auto) 6.56 H Lymph # (Auto) 2.36 [place]christ # (Auto) 0.93 H Eos # (Auto) 0.01 Baso # (Auto) 0.00 Immature Gran # (Auto) 0.15 H PT 12.9 H INR 1.2 H APTT 27.8 PTT Ratio 1.0 Sodium 154 H Potassium 3.6 Chloride 122 H Carbon Dioxide 29 Anion Gap 3.0 BUN 36 H Creatinine 1.10 Est Cr Clr Drug Dosing 48.8 Est GFR ( Amer) 78.4 Est GFR (Non-Af Amer) 67.7 BUN/Creatinine Ratio 32.9 H Glucose 118 H Calcium 8.2 L Magnesium 2.9 H Total Bilirubin 0.3 AST 12 L ALT 10 L Alkaline Phosphatase 103 Total Protein 7.1 Albumin 2.1 L Globulin 5.0 H Albumin/Globulin Ratio 0.4 L Medications Administered Current Inpatient Medications Enoxaparin Sodium (Enoxaparin Inj 40 Mg/0.4 Ml Syr) 40 mg SQ Q12H [facility] Stop: 05/16/20 20:59 Last Admin: 04/17/20 19:45 Dose: 40 mg Documented by: Dexamethasone Sodium Phosphate (6 mg/ Syringe) 1.5 mls @ 1 mls/min IV QAM [facility] Stop: 05/16/20 08:59 Last Admin: 04/17/20 08:30 Dose: 1 mls/min Documented by: Piperacillin Sod/Tazobactam (Sod 3.375 gm/ Dextrose) 115 mls @ 28.75 mls/hr IV Q8H [facility]; Protocol Stop: 04/22/20 07:59 Last Admin: 04/17/20 23:24 Dose: 28.8 mls/hr Documented by: Digoxin 125 mcg/ Syringe 10 mls @ 2 mls/min IV DAILY@1600 [facility] Stop: 05/16/20 15:59 Last Admin: 04/17/20 16:01 Dose: 2 mls/min Documented by: Valproic Acid 500 mg/ Dextrose 55 mls @ 55 mls/hr IV BID [facility] Stop: 05/15/20 08:59 Last Infusion: 04/17/20 20:45 Dose: Infused Documented by: Dextrose (D5w) 1,000 mls @ 100 mls/hr IV .Q10H [facility] Stop: 05/15/20 08:29 Last Admin: 04/17/20 16:02 Dose: 100 mls/hr Documented by: Miscellaneous Information (Piperacill/Tazobac Consult Active) 1 ea N/A UD PRN PRN Reason: Consult Stop: 05/15/20 01:28 Ondansetron HCl (Ondansetron Inj 2 Mg/Ml 2 Ml Vial) 4 mg IV Q6H PRN PRN Reason: Nausea Stop: 05/15/20 01:28 PG Care Time/CCT Total # of Minutes Spent Total Time Spent with Patient: Total time spent is greater than 50% in coordination of care (as documented) at patient's floor/unit and/or counseling patient: Coding Level of Care Code 15498 Subseq Hosp Care Lvl 2 Diagnoses Pneumonia due to COVID-19 virus U07.1; J12.89 Acute hypernatremia E87.0 Seizure disorder G40.909 Paroxysmal atrial fibrillation I48.0 Parkinson disease G20 Dementia F03.90 Acute kidney injury superimposed on chronic kidney disease N17.9; N18.9
[2020-04-18] MEDS: DEXTROSE 5% 1,000 ML IV SCH ×2 (01:29→11:24)
[2020-04-18] MEDS: VALPROATE SOD 500 MG in DEXTROSE 5% 50 ML IV SCH ×2 (08:06→21:24)
[2020-04-18] MEDS: PIPERACILLIN/TAZOBACTAM 3.375 GM in DEXTROSE 5% 100 ML IV SCH ×3 (08:09→22:51)
[2020-04-18] MEDS: ENOXAPARIN INJ 40 MG/0.4 ML SYR SQ SCH ×2 (08:09→21:08)
[2020-04-18] MEDS: DEXAMETHASONE SOD PHOSPHATE 6 MG in SYRINGE 0 ML IV SCH (08:09)
[2020-04-18 08:28] LABS: Hematocrit (blood only) 30.6 % (42-52); Hemoglobin 9.6 g/dL (14.0-18.0); Mean Corpuscular Hemoglobin 31.8 pg (25-34); Mean Corpuscular Hgb Conc 31.4 g/dL (32-36); Mean Corpuscular Volume 101.3 fL (80-100); Mean Platelet Volume 11.9 fL (7.4-10.4); Platelet Count 260 K/uL (130-400); RDW Coefficient of Variation 13.7 % (11.5-14.5); Red Blood Count 3.02 M/uL (4.7-6.1); White Blood Count 10.72 K/uL (4.8-10.8)
[2020-04-18 08:57] LABS: Appearance Urine Cloudy (Clear); Bacteria Urine Automated Negative (Negative); Bilirubin Urine Negative (Negative); Blood Urine 2+ (Negative); Color Urine Yellow; Epithelial Cell Urine Auto 0-5 /lpf (0-5); Glucose Urine UA Negative (Negative); Ketones Urine Negative (Negative); Leukocyte Esterase Urine 3+ (Negative); Nitrite Urine Negative (Negative); Protein Urine 1+ (Negative); Specific Gravity Urine 1.018 (1.000-1.030); Urobilinogen Urine Negative (Negative); WBC Urine Automated >30 /hpf (0-5)
--- NOTE | 2020-04-18 08:59 | Hospitalist Progress Note ---
Date of Service April 18, 2020 Assessment & Plan (1) Pneumonia due to COVID-19 virus: Place on Decadron 6 mg IV daily Zosyn 3.375 mg IV every 8 hours for bacterial pneumonia tomorrow is day 5 of antibiotics, no further treatment needed, he is afebrile, breathing room air no need for full anticoagulation, reduce Lovenox to 40 q12 prognosis is guarded at this time no respiratory distress but he won't eat/drink for 5 days recommend discharge back to [facility] either late Sunday or Sunday instructions to not return to the hospital if he gets worse, should be palliative care (2) Acute hypernatremia: Sodium level upon admission 164, up to 166 down to 143 today stop D5W, change to NSS + 20k at 70cc/hr Creatinine at baseline no need to check labs in the AM as hypernatremia resolved (3) Seizure disorder: Presently is on divalproex 500 mg p.o. twice daily. Changed to IV dosing since he is not taking PO (4) Paroxysmal atrial fibrillation: Change oral digoxin 125 mcg daily to IV. Dig level upon admission 1.9, with range 0.8-2.0. (5) Parkinson disease: hold meds until awake and alert per his brother, he is confused and agitated at baseline (6) Dementia: (7) Acute kidney injury superimposed on chronic kidney disease: Creatinine 1.98 upon admission, improved to 0.8 As noted above, has been placed on IV fluids, with serial laboratories every morning (8) Palliative care encounter: patient is not eating or drinking, he sleeps all day tomorrow is day 5 of antibiotics, no further treatment needed he does not need Decadron as he is not hypoxic spoke with brother over the phone on 04/18, he agrees with patient returning to [facility] on palliative care he should NOT come back to the hospital if he gets worse, keep him comfortable Admission and Anticipated Discharge Date Admission Date: April 14, 2020 Subjective patient sleeping, he will open his eyes briefly, tries to talk but cannot understand he still will not eat anything or drink anything his Na is down to normal, his renal function is stable I called his brother, discussed that he is better as far as lab work and vitals are stable tomorrow will be a solid 5 days of antibiotics, since he is not hypoxic he does not need further decadron recommend he return to SNF but should not return if he gets worse his brother agreed with this plan Review of Systems Review of Systems: Unobtainable due to cognitive status Physical Exam Constitutional: WD/WN, vitals as above + thin and + frail appearing ENMT: Nose: + dry nasal mucous membranes Mouth: + dry oral mucous membranes Neck: trachea midline, no thyromegaly Respiratory: normal respiratory effort, lungs clear to auscultation Cardiovascular: RRR, no murmur, no edema Gastrointestinal (Abdomen): normal bowel sounds, soft, nontender, no hepatosplenomegaly Musculoskeletal: Head/Neck/Chest: normocephalic, head atraumatic and neck supple Extremities: + abnormal strength (generalized weakness) and + muscle atrophy; no cyanosis, no clubbing and no petechiae Skin: no rashes, warm and dry Neurologic: moves all extremities, awake and + confused; no focal motor deficits Psychiatric: Orientation: alert; + not oriented x 3 Lymphatic: no cervical or axillary lymphadenopathy Results & Data Results & Data ([facility]) Vital Signs (Past 12 Hours) Vital Signs Temp Pulse BP Pulse Ox 04/17/20 23:31 36.7 C 61 143/65 H 98 Laboratory Results Laboratory Results - last 24 hr 04/18/20 04/18/20 04/18/20 08:05 08:05 08:15 WBC 10.72 RBC 3.02 L Hgb 9.6 L Hct 30.6 L MCV 101.3 H MCH 31.8 MCHC 31.4 L RDW Std Deviation 50.0 H RDW Coeff of Ezio 13.7 Plt Count 260 MPV 11.9 H Sodium 143 D Potassium 3.3 L Chloride 111 H Carbon Dioxide 28 Anion Gap 5.0 BUN 23 H Creatinine 0.84 Est Cr Clr Drug Dosing 63.9 Est GFR ( Amer) 102.8 Est GFR (Non-Af Amer) 88.7 BUN/Creatinine Ratio 27.6 H Glucose 122 H Calcium 8.0 L Urine Color Yellow Urine Appearance Cloudy A Urine pH 6.0 Ur Specific [place] 1.018 Urine Protein 1+ H Urine Glucose (UA) Negative Urine Ketones Negative Urine Blood 2+ H Urine Nitrite Negative Urine Bilirubin Negative Urine Urobilinogen Negative Ur Leukocyte Esterase 3+ H Urine WBC (Auto) >30 H Urine RBC (Auto) 5-10 H U Hyaline Cast (Auto) 1-5 U Epithel Cells (Auto) 0-5 Urine Bacteria (Auto) Negative Medications Administered Current Inpatient Medications Enoxaparin Sodium (Enoxaparin Inj 40 Mg/0.4 Ml Syr) 40 mg SQ Q12H [facility] Stop: 05/16/20 20:59 Last Admin: 04/18/20 08:09 Dose: 40 mg Documented by: Dexamethasone Sodium Phosphate (6 mg/ Syringe) 1.5 mls @ 1 mls/min IV QAM [facility] Stop: 05/16/20 08:59 Last Admin: 04/18/20 08:09 Dose: 1 mls/min Documented by: Piperacillin Sod/Tazobactam (Sod 3.375 gm/ Dextrose) 115 mls @ 28.75 mls/hr IV Q8H [facility]; Protocol Stop: 04/22/20 07:59 Last Admin: 04/18/20 08:09 Dose: 28.8 mls/hr Documented by: Digoxin 125 mcg/ Syringe 10 mls @ 2 mls/min IV DAILY@1600 [facility] Stop: 05/16/20 15:59 Last Admin: 04/17/20 16:01 Dose: 2 mls/min Documented by: Valproic Acid 500 mg/ Dextrose 55 mls @ 55 mls/hr IV BID [facility] Stop: 05/15/20 08:59 Last Admin: 04/18/20 08:06 Dose: 55 mls/hr Documented by: Dextrose (D5w) 1,000 mls @ 100 mls/hr IV .Q10H [facility] Stop: 05/15/20 08:29 Last Admin: 04/18/20 01:29 EST Dose: 100 mls/hr Documented by: Miscellaneous Information (Piperacill/Tazobac Consult Active) 1 ea N/A UD PRN PRN Reason: Consult Stop: 05/15/20 01:28 Ondansetron HCl (Ondansetron Inj 2 Mg/Ml 2 Ml Vial) 4 mg IV Q6H PRN PRN Reason: Nausea Stop: 05/15/20 01:28 PG Care Time/CCT Total # of Minutes Spent Total Time Spent with Patient: Total time spent is greater than 50% in coordination of care (as documented) at patient's floor/unit and/or counseling patient: Coding Level of Care Code 65910 Subseq Hosp Care Lvl 2 Diagnoses Pneumonia due to COVID-19 virus U07.1; J12.89 Acute hypernatremia E87.0 Seizure disorder G40.909 Paroxysmal atrial fibrillation I48.0 Parkinson disease G20 Dementia F03.90 Acute kidney injury superimposed on chronic kidney disease N17.9; N18.9 Palliative care encounter Z51.5
[2020-04-18 09:04] LABS: BUN Creatinine Ratio 27.6 (10-20); Creatinine Clr Calc Pharmacy 63.9 ml/min; Est GFR (African American) 102.8; Est GFR (Non-African American) 88.7; Potassium 3.3 mmol/L (3.5-5.1)
[2020-04-18] MEDS: NSS + 20MEQ KCL 20 MEQ/1,000 ML BAG IV SCH (13:03)
[2020-04-18] MEDS: DIGOXIN 125 MCG in SYRINGE 9.5 ML IV SCH (15:51)
[2020-04-19] MEDS: NSS + 20MEQ KCL 20 MEQ/1,000 ML BAG IV SCH (02:24)
[2020-04-19 05:35] LABS: Hematocrit (blood only) 31.4 % (42-52); Hemoglobin 9.9 g/dL (14.0-18.0); Mean Corpuscular Hemoglobin 31.2 pg (25-34); Mean Corpuscular Hgb Conc 31.5 g/dL (32-36); Mean Corpuscular Volume 99.1 fL (80-100); Mean Platelet Volume 12.3 fL (7.4-10.4); Platelet Count 310 K/uL (130-400); RDW Coefficient of Variation 13.4 % (11.5-14.5); Red Blood Count 3.17 M/uL (4.7-6.1); White Blood Count 10.45 K/uL (4.8-10.8)
[2020-04-19 05:59] LABS: BUN Creatinine Ratio 22.6 (10-20); Calcium 7.7 mg/dl (8.5-10.1); Creatinine Clr Calc Pharmacy 66.3 ml/min; Est GFR (African American) 104.4; Potassium 3.3 mmol/L (3.5-5.1)
[2020-04-19] MEDS: VALPROATE SOD 500 MG in DEXTROSE 5% 50 ML IV SCH (08:02)
[2020-04-19] MEDS: ENOXAPARIN INJ 40 MG/0.4 ML SYR SQ SCH (08:02)
[2020-04-19] MEDS: PIPERACILLIN/TAZOBACTAM 3.375 GM in DEXTROSE 5% 100 ML IV SCH (08:03)
[2020-04-19] MEDS: DEXAMETHASONE SOD PHOSPHATE 6 MG in SYRINGE 0 ML IV SCH (08:03)
[2020-04-19] MEDS: POTASSIUM CHLORIDE / WTR 10 MEQ/100 ML PLCT IV SCH ×2 (10:37→11:31)
--- NOTE | 2020-04-19 12:21 | Discharge Summary ---
Date of Service April 19, 2020 Admission HPI Per Admitting Provider The patient is a 70-year-old male with a past medical history including BPH, hyperlipidemia, hypertension, seizure disorder, paroxysmal atrial fibrillation, Parkinson's disease, dementia, sepsis, food impaction, BPH and lung collapse. He was diagnosed with COVID-19 viral infection on March 27, and reportedly had been oxygenating well and eating well until the past several days. The patient himself is not responsive upon arrival to the ED. He is confirmed via records to be a DNR/DNI, but will accept antibiotics and IV fluids. Repeat laboratories in ED this evening confirmed COVID-19 viral infection. Principal Diagnosis Secondary bacterial pneumonia, COVID-19 infection Hypernatremia Acute respiratory failure with hypoxia Acute metabolic encephalopathy Discharge Exam Constitutional + thin; not lethargic Eyes + anicteric sclerae Neck trachea midline, no thyromegaly Respiratory normal respiratory effort, lungs clear to auscultation (except occasional rhonchi on right) Cardiovascular RRR, no murmur, no edema Chest (Breasts) Chest: normal inspection of chest Gastrointestinal (Abdomen) normal bowel sounds, soft, nontender, no hepatosplenomegaly Musculoskeletal Extremities: extremities normal to inspection; no cyanosis and no clubbing Skin no rashes, warm and dry Neurologic awake and + confused Speech / Cognition: + expressive aphasia Right arm in flexion contracture, resting tremor Psychiatric Orientation: alert; + not oriented x [address] in place with clear yellow urine Lymphatic no lymphedema Discharge Data Allergies Allergy/AdvReac Type Severity Reaction Status Date / Time naproxen Allergy Mild Unknown Verified 04/14/20 22:19 Consultations 04/14/20 21:23 ED Decision to Admit Stat 04/15/20 01:29 Consult Case Management - Discharge Planning Routine Ordered Studies 04/14/20 19:28 CT head/brain wo con Urgent 04/14/20 21:10 CT chest wo con Urgent CXR Hospital Course (1) Pneumonia due to COVID-19 virus: Placed on Decadron 6 mg IV daily and can finish out 5 more days at [facility] po if tolerating po Zosyn 3.375 mg IV every 8 hours for bacterial pneumonia received 5 days of antibiotics, no further treatment needed, he is afebrile, breathing room air no need for full anticoagulation, used Lovenox to 40 q12 while admitted prognosis is guarded at this time but seems improved from respiratory standpoint, just not eating for 6 days recommend discharge back to [facility] today instructions to not return to the hospital if he gets worse, should be p alliative care (2) Acute hypernatremia: Sodium level upon admission 164, up to 166 down to 145 on day of discharge but went up slightly after stopping D5W, not taking po so will likely worsen again Creatinine at baseline no need to check labs if transitions to [employer] at [facility] (3) Seizure disorder: Presently is on divalproex 500 mg p.o. twice daily. Changed to IV dosing since he is not taking PO but can restart po on discharge if taking po otherwise can use AK Valium or SL clonazepam as needed at [facility] (4) Paroxysmal atrial fibrillation: was given digoxin 125 mcg daily IV while here. Dig level upon admission 1.9, with range 0.8-2.0. Can restrt po digoxin on dc if tolerating po, otherwise no meds and not on AC (5) Parkinson disease: hold meds until awake and alert per his brother, he is confused and agitated at baseline can take Sinemet if taking po (6) Dementia: secondary to h/o EtOH abuse as per records from Neurology as outpt (7) Acute kidney injury superimposed on chronic kidney disease: Creatinine 1.98 upon admission, improved to 0.8 As noted above, has been placed on IV fluids Suspect will worsen again if not taking po as above no IVFs needed Continue Buckner for now, making urine (8) Palliative care encounter: patient is not eating or drinking, he sleeps all day completed 5 day course of antibiotics, no further treatment needed will finish out course of decadron as was hypoxic initially spoke with brother over the phone on 04/18, he agrees with patient returning to [facility] on palliative care he should NOT come back to the hospital if he gets worse, keep him comfortable Dispo-dc to [facility] Total Time Total Time Spent Total Time Spent (In Minutes): 35 min Total Time Includes: Examination of the Patient, Discharge Planning and Medication Reconciliation Discharge Plan Discharge Items Patient Disposition: Transfer [facility] Reason For Visit: COVID-19 PNEUMONIA, HYPERNATREMIA Discharge Diagnosis: COVID-19 Pneumonia, Hypernatremia Activity: Resume your previous activity Non-emergency contact: Primary Care Provider Call non-emergency contact if: you have any medication questions, your symptoms worsen and your pain is not controlled Follow-up/Referrals: Felix Coronel [Primary Care Provider] - Diet: Regular Diet Comment: as tolerated Addtl Attending Provider Instructions: Continue usual care, can take home po medications if desires but has had low appetite, not eating. Plan is to transition to comfort care measures if deterioriates further after discharge. Pending Studies at Discharge: Yes Stand-Alone Forms: My [facility] Skilled Items Patient informed of condition?: Yes DNR: Yes Discharge Level of Care: Skilled Communicable Disease: Yes Discharge Prognosis: Stable Lines: None Urinary Catheter: Yes Medications and DC Order Prescriptions: New dexamethasone 6 mg tablet 6 mg PO DAILY Qty: 5 RF: 0 Continued 2 Talib Cc Supplement 120 ml PO QID RF: 0 acetaminophen [Tylenol] 325 mg Tablet 650 mg PO Q8 PRN (Reason: Fever Or Pain) RF: 0 atorvastatin [Lipitor] 10 mg tablet 20 mg PO HS RF: 0 carbidopa-levodopa 25-250 mg tablet 1 tab PO QID RF: 0 meloxicam [Mobic] 15 mg tablet 15 mg PO HS RF: 0 sennosides-docusate sodium [Senokot-S] 8.6-50 mg Tablet 1 tab-cap PO BID RF: 0 risperidone 0.25 mg tablet 1 mg PO QAM RF: 0 risperidone 0.25 mg tablet 0.75 mg PO HS RF: 0 magnesium hydroxide [Milk of Magnesia] 400 mg/5 mL Suspension 30 ml PO UD PRN (Reason: Constipation) RF: 0 bisacodyl [Dulcolax (bisacodyl)] 10 mg Suppository 10 mg AK UD PRN (Reason: Constipation) RF: 0 metoprolol tartrate [Lopressor] 50 mg tablet 50 mg PO DAILY RF: 0 folic acid 1 mg Tablet 1 mg PO DAILY RF: 0 digoxin 125 mcg (0.125 mg) tablet 125 mcg PO DAILY RF: 0 mirtazapine [Remeron] 15 mg tablet 15 mg PO HS RF: 0 divalproex 125 mg capsule, delayed rel sprinkle 500 mg PO BID RF: 0 loratadine [Claritin] 10 mg Tablet 10 mg PO DAILY RF: 0 guaifenesin 400 mg Tablet 400 mg PO BID RF: 0 Supplement Shakes 1 dose PO TID RF: 0 Discontinued hydrocodone-acetaminophen [Carlisle] 5-325 mg tablet 1 tab PO Q6 RF: 0 hydrocodone-acetaminophen [Carlisle] 5-325 mg Tablet 1 tab PO Q6 PRN (Reason: Pain) RF: 0 dexamethasone sodium phosphate 4 mg/mL Solution 6 mg IV DAILY RF: 0 Discharge Orders: Discharge Order (Routine); Ordered 04/19/20 Ordered By: Bambi Dc Admission Data Admit Date/Time: 04/14/20 22:56 Attending Provider: Bambi Dc Admit Provider: Brett Moreira Primary Care Provider: Felix Coronel Other Providers: Brett Moreira Other Interventions: Discharge Summary Assessment (RN) Last Done: 04/19/20 12:05 Coding Level of Care Code D/C Day Management >30 mins Diagnoses Pneumonia due to COVID-19 virus U07.1; J12.89 Acute hypernatremia E87.0 Seizure disorder G40.909 Paroxysmal atrial fibrillation I48.0 Parkinson disease G20 Dementia F03.90 Acute kidney injury superimposed on chronic kidney disease N17.9; N18.9 Palliative care encounter Z51.5
== END 2020-04-19 13:32 | DRG 177 ==
LOC: ED 19:21 → 3N 22:56 → SUATTDRO 22:56 → 3N 04-15 00:01